=== PATIENT | female | born 1985 | race Caucasian/White ===

== ENCOUNTER 2017-11-14 12:35 | Outpatient (CLI) | payer MEDICAID | END 2017-11-14 12:36 | disposition home or self-care (01) | LOC: LAB.F 12:35 | PROVIDERS: ATTEND Internal Medicine | DX: Z53.9 Procedure and treatment not carried out, unspecified reason (principal) ==

== ENCOUNTER 2017-11-21 10:25 | Outpatient (CLI) | payer MEDICAID ==
[2017-11-21 18:17] LABS: BASOPHILS % (AUTO) 0.8 %; EOSINOPHILS # (AUTO) 0.1 10^3/uL (0.0-0.7); EOSINOPHILS % (AUTO) 2.2 %; HGB - HEMOGLOBIN 9.7 g/dL (12.0-16.0); LYMPHOCYTES # (AUTO) 1.1 10^3/uL (1.5-3.5); LYMPHOCYTES % (AUTO) 33.3 %; MEAN CORPUSCULAR HEMOGLOBIN 28.7 pg (27.0-31.0); MEAN CORPUSCULAR HGB CONC 32.7 g/dL (32.0-36.0); MEAN CORPUSCULAR VOLUME 87.6 fL (81.0-99.0); MEAN PLATELET VOLUME 8.5 fL (7.9-10.8); MEAN RETIC VALUE 110.3; MONOCYTES # (AUTO) 0.4 10^3/uL (0.0-1.0); MONOCYTES % (AUTO) 13.2 %; NEUTROPHILS # (AUTO) 1.7 10^3/uL (1.5-6.6); NEUTROPHILS % (AUTO) 50.5 %; PLT - PLATELET COUNT 147 10^3/uL (130-450); RED BLOOD COUNT 3.39 10^6/uL (4.20-5.40); RED CELL DISTRIBUTION WIDTH 20.8 % (12.0-15.0); WHITE BLOOD COUNT 3.4 x10^3/uL (4.8-10.8)
[2017-11-21 18:23] LABS: THYROID STIMULATING HORMONE 3.63 uIU/mL (0.34-5.60)
[2017-11-21 18:31] LABS: FERRITIN 5.1 ng/mL (11.0-306.8)
[2017-11-21 18:34] LABS: FOLATE 8.99 ng/mL (5.90 - >24.8)
[2017-11-21 18:52] LABS: ALBUMIN 3.1 g/dL (3.2-5.5); ALBUMIN/GLOBULIN RATIO 0.9 (1.0-2.2); BILIRUBIN,TOTAL 0.3 mg/dL (0.2-1.0); CREATININE 0.6 mg/dL (0.4-1.0); TOTAL PROTEIN 6.7 g/dL (6.7-8.2)
[2017-11-21 19:04] LABS: PLATELET ESTIMATE, MANUAL NORMAL (130-450,000) (NORMAL); PLATELET MORPHOLOGY NORMAL APPEARANCE (NORMAL); RBC MORPHOLOGY (MULTIPLE) 1+ ANISOCYTOSIS (NORMAL)
== END 2017-11-21 10:26 | disposition home or self-care (01) ==
LOC: LAB.F 10:25
PROVIDERS: ATTEND Internal Medicine
DX: D64.9 Anemia, unspecified (principal); F10.20 Alcohol dependence, uncomplicated; Z98.84 Bariatric surgery status
CPT/HCPCS: 36415; 80050; 81599; 82607; 82652; 82728; 82746; 83540; 84466; 85044

== ENCOUNTER → 2017-12-26 | Outpatient (CLI) | payer MEDICAID ==
[2017-12-26 17:50] LABS: CALCIUM 8.5 mg/dL (8.5-10.3); CREATININE 0.5 mg/dL (0.4-1.0)
[2017-12-26 17:59] LABS: HGB - HEMOGLOBIN 9.5 g/dL (12.0-16.0); MEAN CORPUSCULAR HGB CONC 31.4 g/dL (32.0-36.0); MEAN CORPUSCULAR VOLUME 79.5 fL (81.0-99.0); MEAN PLATELET VOLUME 8.4 fL (7.9-10.8); RED BLOOD COUNT 3.78 10^6/uL (4.20-5.40); RED CELL DISTRIBUTION WIDTH 20.4 % (12.0-15.0)
[2017-12-26 18:06] LABS: FERRITIN 3.6 ng/mL (11.0-306.8)
== END ==
LOC: LAB.F 08:00
PROVIDERS: ATTEND Internal Medicine
DX: D50.9 Iron deficiency anemia, unspecified (principal); Z98.84 Bariatric surgery status
CPT/HCPCS: 36415; 80048; 82607; 82728; 85027

== ENCOUNTER 2018-05-31 16:49 | Emergency (ER) | payer MEDICAID ==
[2018-05-31 17:09] LABS: BILIRUBIN,URINE NEGATIVE (NEGATIVE); GLUCOSE, URINE (UA) NEGATIVE (NEGATIVE); KETONES,URINE (UA) NEGATIVE (NEGATIVE); LEUKOCYTE ESTERASE, URINE MODERATE (NEGATIVE); NITRITE,URINE NEGATIVE (NEGATIVE); OCCULT BLOOD,URINE SMALL (NEGATIVE); PROTEIN,URINE NEGATIVE (NEGATIVE); UROBILINOGEN,URINE 0.2 (NORMAL) E.U./dL (NORMAL)
[2018-05-31 17:10] LABS: CLARITY,URINE HAZY (CLEAR)
[2018-05-31 17:11] LABS: HCG UR QUAL NEGATIVE
[2018-05-31 17:19] LABS: WBC CLUMPS,URINE PRESENT
[2018-05-31 17:21] LABS: BACTERIA,URINE Many /HPF (None Seen); SQUAMOUS EPITHELIAL CELL,UR FEW Squamous (<= Few)
[2018-05-31 18:11] VITALS: BP 139/79
[2018-05-31] MEDS ORDERED: LIDOCAINE 1% 2 ML VIAL SUBQ ONE (18:12)
[2018-05-31] MEDS ORDERED: cefTRIAXone 1 GM VIAL IM STA (18:12)
[2018-05-31] MEDS ORDERED: HYDROcod/ACETAM 5/325 MG TABLET PO STA (18:13)
[2018-05-31] MEDS ORDERED: ONDANSETRON ODT 4 MG TABLET TL STA (18:14)
--- NOTE | 2018-05-31 18:15 | ED Physician Documentation ---
History of Present Illness - Stated complaint Stated Complaint: LOW BACK PX - Chief complaint Chief Complaint: Abd Pain - History obtained from History obtained from: Patient, Family - History of Present Illness Timing: How many days ago (several) Pain level max: 8 Pain level now: 8 Improved by: nothing Worsened by: movement - Additonal information Additional information: 32-year-old female with low back pain worsening over the past few days. Dysuria and urinary frequency as well. Has had pyelonephritis in the past. Has felt feverish and chilled today. Review of Systems Constitutional: denies: Fever, Chills Throat: denies: Sore throat Respiratory: denies: Cough GI: denies: Constipation, Diarrhea, Hematemesis : denies: Now EGA Skin: denies: Rash Musculoskeletal: denies: Neck pain, Back pain Neurologic: denies: Headache PD PAST MEDICAL HISTORY - Past Medical History Past Medical History: No - Past Surgical History General: Gastric surgery - Present Medications Home Medications: Ambulatory Orders Medication Instructions Recorded Confirmed Cefdinir 300 mg PO BID #20 capsule 05/31/18 Hydrocodone/Acetaminophen 1 - 2 each PO Q6H PRN #14 tablet 05/31/18 [Hydrocodon-Acetaminophen 5-325] Ondansetron Odt [Zofran] 4 mg TL Q6H PRN #10 tablet 05/31/18 - Allergies Allergies/Adverse Reactions: Allergies Allergy/AdvReac Type Severity Reaction Status Date / Time ibuprofen AdvReac Nausea Verified 05/31/18 16:54 - Social History Does the pt smoke?: Yes Smoking Status: Current every day smoker Does the pt drink ETOH?: No Does the pt have substance abuse?: No - Immunizations Immunizations are current?: Yes PD ED PE NORMAL - Vitals Vital signs reviewed: Yes - General General: Alert and oriented X 3, No acute distress, Well developed/nourished - HEENT HEENT: Moist mucous membranes - Neck Neck: Supple, no meningeal sign - Cardiac Cardiac: RRR - Respiratory Respiratory: No respiratory distress, Clear bilaterally - Abdomen Abdomen: Soft, Non tender, Non distended - Back Back: Other (Mild left CVA tenderness) - Derm Derm: Warm and dry - Extremities Extremities: No edema - Neuro Neuro: Alert and oriented X 3 - Psych Psych: Normal mood, Normal affect Results - Vitals Vitals: Oxygen O2 Source Room air - Labs Labs: Microbiology 03/14/19 17:04 Urine Culture - Final Urine,Clean Catch 10-50,000 COLONIES/ML Polymicrobial growth including potential pathogens. This is suggestive of skin or other contamination. Laboratory Tests 05/31/18 17:04 Urine Color YELLOW Urine Clarity HAZY Urine pH 7.0 Ur Specific [place] 1.010 Urine Protein NEGATIVE Urine Glucose (UA) NEGATIVE Urine Ketones NEGATIVE Urine Occult Blood SMALL H Urine Nitrite NEGATIVE Urine Bilirubin NEGATIVE Urine Urobilinogen 0.2 (NORMAL) Ur Leukocyte Esterase MODERATE H Urine RBC 6-10 H Urine WBC >25 H Urine WBC Clumps PRESENT Ur Squamous Epith Cells FEW Squamous Urine Bacteria Many H Ur Microscopic Review INDICATED Urine Culture Comments INDICATED Urine HCG, Qual NEGATIVE PD MEDICAL DECISION MAKING - ED course Complexity details: reviewed results, re-evaluated patient, considered differential, d/w patient ED course: 32-year-old female presents to the emergency department with what appears to be early pyelonephritis. Given a dose of Rocephin here. Will place on antibiotics for home. She is well-appearing, nontoxic. Patient counseled regarding signs and symptoms for which I believe and urgent re-evaluation would be necessary. Patient with good understanding of and agreement to plan and is comfortable going home at this time This document was made in part using voice recognition software. While efforts are made to proofread this document, sound alike and grammatical errors may occur. Departure - Departure Disposition: 01 Home, Self Care Clinical Impression: Pyelonephritis Condition: Good Instructions: ED Kidney Infec Female Follow-Up: Ishmael Gómez MD [Primary Care Provider] - Within 1 week Prescriptions: Cefdinir 300 mg PO BID #20 capsule Hydrocodone/Acetaminophen [Hydrocodon-Acetaminophen 5-325] 1 - 2 each PO Q6H PRN #14 tablet PRN Reason: pain Ondansetron Odt [Zofran] 4 mg TL Q6H PRN #10 tablet PRN Reason: Nausea / Vomiting Comments: Take all antibiotics until gone. Return if you worsen. Follow-up with your doctor for further care. Do not drink alcohol or drive while on narcotic pain medicine. Note that many narcotic pain relievers also contain tylenol/acetaminophen. Please ensure that your total dose of acetaminophen from all sources does not exceed 3 grams (3000mg) per day. You may constipated on this medication, take a stool softener such as "Colace" twice a day while you are on it. Also recommend a uypl-thk-qqycwus laxative such as senna or MiraLAX any day that you do not have a bowel movement. If you received narcotic pain medication in the emergency department, do not drive or operate machinery for the next 24 hours. Discharge Date/Time: 05/31/18 18:40
== END 2018-05-31 18:40 | disposition home or self-care (01) ==
LOC: ED 16:49
DX: N12 Tubulo-interstitial nephritis, not specified as acute or chronic (principal); F17.200 Nicotine dependence, unspecified, uncomplicated
CPT/HCPCS: 81001; 81025; 87086; 96372; 99283; A9270; Q0162; 81003

== ENCOUNTER 2018-06-08 14:11 | Outpatient (CLI) | payer MEDICAID ==
[2018-06-08 17:38] LABS: HGB - HEMOGLOBIN 8.7 g/dL (12.0-16.0); MEAN CORPUSCULAR HEMOGLOBIN 20.9 pg (27.0-31.0); MEAN CORPUSCULAR VOLUME 69.6 fL (81.0-99.0); MEAN PLATELET VOLUME 8.2 fL (7.9-10.8); RED BLOOD COUNT 4.14 10^6/uL (4.20-5.40); RED CELL DISTRIBUTION WIDTH 18.4 % (12.0-15.0)
[2018-06-08 18:08] LABS: CALCIUM 8.6 mg/dL (8.5-10.3); CREATININE 0.7 mg/dL (0.4-1.0)
== END 2018-06-08 14:12 | disposition home or self-care (01) ==
LOC: LAB.F 14:11
PROVIDERS: ATTEND Internal Medicine
DX: E87.6 Hypokalemia (principal); D50.9 Iron deficiency anemia, unspecified
CPT/HCPCS: 36415; 80048; 82728; 85027

== ENCOUNTER 2018-07-16 11:22 | Emergency (ER) | payer MEDICAID ==
[2018-07-16] MEDS ORDERED: ONDANSETRON ODT 4 MG TABLET TL STA (12:47)
[2018-07-16] MEDS ORDERED: HYDROcod/ACETAM 5/325 MG TABLET PO STA (12:47)
--- NOTE | 2018-07-16 12:51 | ED Physician Documentation ---
PD HPI HEAD INJURY - Stated complaint Stated Complaint: NOSE INJ - Chief complaint Chief Complaint: Trauma Hd/Nk - History obtained from History obtained from: Patient - History of Present Illness Mechanism of head injury: Blow Where head injury occurred: Home Timing - onset: Today Location of injury: Other (face) Associated symptoms: Other (epistaxis) Similar symptoms before: Has not had sx before - Additional information Additional information: The patient is a 32-year-old female who was installing a water fall showerhead this morning when it fell onto her face. She has had bleeding from her nose since that time. She has noticed deformity of her nose, and persistent pain. She denies loss of consciousness, visual disturbance, or other injuries. She has developed slight nausea, but denies vomiting. Review of Systems Constitutional: denies: Fever Eyes: denies: Decreased vision Ears: denies: Tinnitus/ringing Nose: reports: Epistaxis, Other (pain and deformity of nose). denies: Congestion Throat: denies: Sore throat Cardiac: denies: Chest pain / pressure Respiratory: denies: Dyspnea, Cough GI: reports: Nausea. denies: Abdominal Pain, Vomiting : denies: Dysuria Skin: reports: Abrasion (s) (nose). denies: Rash Musculoskeletal: denies: Neck pain, Back pain Neurologic: denies: Focal weakness, Numbness, Headache PD PAST MEDICAL HISTORY - Past Medical History Cardiovascular: None Respiratory: None Neuro: None Endocrine/Autoimmune: None - Past Surgical History General: Gastric surgery - Present Medications Home Medications: Ambulatory Orders Medication Instructions Recorded Confirmed Cyclobenzaprine [Flexeril] 10 mg PO DAILY 06/28/18 06/28/18 hydrOXYzine HCl [Hydroxyzine HCl] 10 mg PO DAILY 06/28/18 06/28/18 traZODone [Desyrel] 50 mg PO Q6H PRN 06/28/18 06/28/18 Hydrocodone/Acetaminophen 1 - 2 each PO Q6H PRN #14 tablet 07/16/18 [Hydrocodon-Acetaminophen 5-325] - Allergies Allergies/Adverse Reactions: Allergies Allergy/AdvReac Type Severity Reaction Status Date / Time ibuprofen AdvReac Nausea Verified 05/31/18 16:54 - Social History Does the pt smoke?: Yes Smoking Status: Current every day smoker Does the pt drink ETOH?: No Does the pt have substance abuse?: No - Immunizations Immunizations are current?: Yes PD ED PE NORMAL - Vitals Vital signs reviewed: Yes (normal) - General General: Alert and oriented X 3, Well developed/nourished, Other (Holding Kleenex to her nose.) - HEENT HEENT: PERRL, EOMI, Pharynx benign, Other (There is deviation of the nasal septum to the right, with associated tenderness to palpation along the nasal bridge. There is no septal hematoma. There is no significant ongoing epistaxis, but there is slight blood-tinged tearing from the nose.) - Neck Neck: No bony TTP, No adenopathy, Other (Full cervical range of motion without tenderness.) - Cardiac Cardiac: RRR - Respiratory Respiratory: No respiratory distress - Derm Derm: No rash - Extremities Extremities: No tenderness to palpate - Neuro Neuro: Alert and oriented X 3, No motor deficit, Normal speech Results - Vitals Vitals: Vital Signs - 24 hr 07/16/18 11:32 Temperature 36.6 C Heart Rate 100 Respiratory 18 Rate Blood Pressure 133/73 H O2 Saturation 100 Oxygen O2 Source Room air - Rads (name of study) maxillofacial CT Radiology: Prelim report reviewed, EMP read contemporaneously, See rad report (Markedly comminuted nasal fracture with rightward displacement.) PD MEDICAL DECISION MAKING - ED course Complexity details: reviewed results, re-evaluated patient, considered differential, d/w patient, d/w wine consultant ED course: The patient's presentation is significant for a comminuted nasal fracture which is visualized on maxillofacial CT scan. It reveals deviation to the right. There is no septal hematoma on physical examination, and the epistaxis has spontaneously resolved. Treatment in the emergency department included administration of sublingual Zofran 4 mg, and Vicodin 1 tablet orally. She is being discharged with a prescription for Vicodin, 10 tablets. I discussed her condition with Dr. Reveles who is on-call for plastic surgery in [place]. He will see her in outpatient follow-up. A disc of the patient's imaging study was made for her to take to the outpatient appointment. I discussed with her outpatient follow-up, as well as potentially worrisome signs or symptoms that should prompt reevaluation in the emergency department. Departure - Departure Disposition: 01 Home, Self Care Clinical Impression: Nasal fracture Qualifiers: Encounter type: initial encounter Fracture type: closed Qualified Code(s): S02.2XXA - Fracture of nasal bones, initial encounter for closed fracture Condition: Stable Instructions: ED Fx Nasal Conf W X Ray Follow-Up: Ishmael Gómez MD [Primary Care Provider] - Lb Reveles MD [Physician No Access] - Prescriptions: Hydrocodone/Acetaminophen [Hydrocodon-Acetaminophen 5-325] 1 - 2 each PO Q6H PRN #14 tablet PRN Reason: pain Comments: Apply ice pack to your nose intermittently for the next 2 or 3 days. You can use ibuprofen, up to 800 mg 3 times daily for the anti-inflammatory effect. You can use Vicodin as prescribed if needed for pain. Follow-up with plastic surgery this week. Dr. Reveles's office will call you to arrange follow-up appointment. Take the disc copy of your CT scan with you to the appointment. Return to the emergency department if recurrent persistent bleeding, increasing headache, or otherwise worsening symptoms.
--- NOTE | 2018-07-16 13:19 | CT Report ---
Reason: facial injury, with nasal deformity. Procedure Date: 07/16/2018 Accession Number: [id number] / [id number] Procedure: CT - MAXILLOFACIAL WO CPT Code: FULL RESULT: EXAM: CT MAXILLOFACIAL WITHOUT CONTRAST EXAM DATE: 07/16/2018 01:02 PM. CLINICAL HISTORY: Facial injury, with nasal deformity. COMPARISONS: None. TECHNIQUE: Thin-section axial images were acquired of the face without contrast. Post-processing: Coronal and sagittal reformats. Other: None. In accordance with CT protocol optimization, one or more of the following dose reduction techniques were utilized for this exam: automated exposure control, adjustment of mA and/or KV based on patient size, or use of iterative reconstructive technique. FINDINGS: Soft Tissue: The infratemporal fossa and parapharyngeal spaces are unremarkable. Soft tissue swelling over the nose. Orbits: Symmetric and unremarkable. Bones: Markedly comminuted fracture of the superior nasal spine extending to the base of the spine with involvement of the upper portion of the nasal septum, displaced slightly to the right. Underlying nasal septal deviation measuring about 5 mm to the left. Comminution extends into the nasal daily, left worse than right, with rightward displacement. Inferior nasal spine remains intact. Otherwise unremarkable. Temporomandibular Joints: The temporomandibular joints are symmetric and normally located. Sinuses: Small air-fluid levels in both maxillary sinuses. Otherwise clear. Other: None. IMPRESSION: Markedly comminuted nasal fracture with rightward displacement. RADIA
[2018-07-16 15:05] VITALS: BP 117/72
== END 2018-07-16 15:06 | disposition home or self-care (01) ==
LOC: ED 11:22
DX: S02.2XXA Fracture of nasal bones, initial encounter for closed fracture (principal); W20.8XXA Other cause of strike by thrown, projected or falling object, initial encounter; Y93.89 Activity, other specified; Y92.002 Bathroom of unspecified non-institutional (private) residence as the place of occurrence of the external cause; F17.200 Nicotine dependence, unspecified, uncomplicated
CPT/HCPCS: 70486; 99283; A9270; Q0162

== ENCOUNTER 2018-11-07 14:46 | Outpatient (CLI) | payer MEDICAID ==
[2018-11-07 17:38] LABS: HGB - HEMOGLOBIN 12.4 g/dL (12.0-16.0); MEAN CORPUSCULAR HEMOGLOBIN 27.4 pg (27.0-31.0); MEAN CORPUSCULAR HGB CONC 30.8 g/dL (32.0-36.0); MEAN PLATELET VOLUME 10.4 fL (7.9-10.8); RED BLOOD COUNT 4.53 10^6/uL (4.20-5.40); RED CELL DISTRIBUTION WIDTH 14.3 % (12.0-15.0); WHITE BLOOD COUNT 4.7 x10^3/uL (4.8-10.8)
[2018-11-08 15:21] LABS: HIV AG/AB 4TH GEN NON-REACTIVE (NON-REACTIVE)
== END 2018-11-07 14:47 | disposition home or self-care (01) ==
LOC: LAB.S 14:46
PROVIDERS: ATTEND Internal Medicine
DX: D50.9 Iron deficiency anemia, unspecified (principal); Z11.3 Encounter for screening for infections with a predominantly sexual mode of transmission
CPT/HCPCS: 36415; 82728; 85027; 87389

== ENCOUNTER 2018-12-26 13:23 | Outpatient (CLI) | payer MEDICAID ==
[2018-12-26 18:05] LABS: ABSOLUTE RETICS # AUTO 0.024 10^6/uL (0.020-0.110); BASOPHILS % (AUTO) 0.5 %; HGB - HEMOGLOBIN 11.6 g/dL (12.0-16.0); LYMPHOCYTES # (AUTO) 1.2 10^3/uL (1.5-3.5); LYMPHOCYTES % (AUTO) 30.8 %; MEAN CORPUSCULAR HEMOGLOBIN 25.3 pg (27.0-31.0); MEAN CORPUSCULAR HGB CONC 30.3 g/dL (32.0-36.0); MEAN CORPUSCULAR VOLUME 83.6 fL (81.0-99.0); MEAN PLATELET VOLUME 11.1 fL (7.9-10.8); MONOCYTES # (AUTO) 0.5 10^3/uL (0.0-1.0); NEUTROPHILS # (AUTO) 2.2 10^3/uL (1.5-6.6); NEUTROPHILS % (AUTO) 55.4 %; PLT - PLATELET COUNT 169 10^3/uL (130-450); RED BLOOD COUNT 4.58 10^6/uL (4.20-5.40); WHITE BLOOD COUNT 3.9 x10^3/uL (4.8-10.8)
[2018-12-26 18:44] LABS: % IRON SATURATION 10 % (20-50); IRON 51 ug/dL (28-170); TOTAL IRON BINDING CAPACITY 526 ug/dL (250-450); TRANSFERRIN 376 mg/dL (192-382)
== END 2018-12-26 13:24 | disposition home or self-care (01) ==
LOC: LAB.S 13:23
PROVIDERS: ATTEND Internal Medicine
DX: D50.9 Iron deficiency anemia, unspecified (principal)
CPT/HCPCS: 36415; 82728; 83540; 84466; 85025; 85045

== ENCOUNTER 2019-03-22 07:00 | Outpatient (CLI) | payer MEDICAID | END 2019-03-22 23:59 | disposition home or self-care (01) | LOC: LAB.R 07:00 | PROVIDERS: ATTEND Obstetrics & Gynecology | DX: Z32.01 Encounter for pregnancy test, result positive (principal) | CPT/HCPCS: 87077; 87086; 87181 ==

== ENCOUNTER 2019-04-17 14:49 | Outpatient (CLI) | payer MEDICAID ==
--- NOTE | 2019-04-17 15:56 | Ultrasound Report ---
Reason: TEST POSITIVE Procedure Date: 04/17/2019 Accession Number: [id number] / [id number] Procedure: US - OB First Trimester CPT Code: Final Report FULL RESULT: EXAM: FIRST TRIMESTER OBSTETRIC ULTRASOUND (Less than 11 weeks) EXAM DATE: 04/17/2019 03:47 PM. CLINICAL HISTORY: test positive. LMP: 02/17/2019. COMPARISONS: None. TECHNIQUE: Transabdominal and transvaginal ultrasound examination with static image documentation. CLINICAL DATES: EGA 8 weeks 3 days with TAHIR 11/24/2019 based on LMP. ASSESSMENT: Gestational Sac: Single intrauterine. Mean gestational sac diameter: 30 mm = 8 weeks 1 day. Embryo: CRL (crown-rump length) 12 mm = 7 weeks 2 days. Cardiac activity: 151 beats per minute. Yolk sac: 5 mm. Amniotic fluid: Not accurately assessed at this gestational age. Early placenta: Not visible at this gestational age. Other: No perigestational fluid collection demonstrated. MATERNAL STRUCTURES: Uterus: Anteverted. Unremarkable. Cervix: Closed. Right Ovary/Adnexa: The ovary measures 3.0 x 2.3 x 3.2 cm, volume 11.7 cc. Corpus luteum noted. Left Ovary/Adnexa: The ovary measures 2.6 x 1.5 x 2.4 cm, volume 4.9 cc. Unremarkable. Free Fluid: Trace fluid is seen in the cul-de-sac. Other: None. IMPRESSION: 1. Single viable intrauterine at EGA 7 weeks 2 days with TAHIR 12/02/2019 based on crown-rump length, which is discordant with clinical dates. 2. Assigned dating is TAHIR 12/02/2019 based on current ultrasound. RADIA
== END 2019-04-17 14:50 | disposition home or self-care (01) ==
LOC: DI 14:49
PROVIDERS: ATTEND Obstetrics & Gynecology
DX: Z32.01 Encounter for pregnancy test, result positive (principal)
CPT/HCPCS: 76801; 76817

== ENCOUNTER 2019-04-19 08:00 | Outpatient (CLI) | payer MEDICAID ==
[2019-04-19 15:13] LABS: MUDS CUTOFF CONCENTRATIONS CUTOFF CONC BELOW:
[2019-04-19 15:35] LABS: BILIRUBIN,URINE NEGATIVE (NEGATIVE); GLUCOSE, URINE (UA) NEGATIVE (NEGATIVE); KETONES,URINE (UA) NEGATIVE (NEGATIVE); LEUKOCYTE ESTERASE, URINE NEGATIVE (NEGATIVE); NITRITE,URINE NEGATIVE (NEGATIVE); OCCULT BLOOD,URINE NEGATIVE (NEGATIVE); PROTEIN,URINE NEGATIVE (NEGATIVE); UROBILINOGEN,URINE 0.2 (NORMAL) E.U./dL (NORMAL)
[2019-04-19 15:55] LABS: AMORPHOUS SEDIMENT,UR Moderate /LPF; BACTERIA,URINE Moderate /HPF (None Seen); CLARITY,URINE CLOUDY (CLEAR); RBC,URINE 0-5 /HPF (0-5); SQUAMOUS EPITHELIAL CELL,UR MANY Squamous (<= Few)
[2019-04-19 16:25] LABS: AMPHETAMINE SCREEN,URINE NEGATIVE (NEGATIVE); BENZODIAZEPINES SCREEN, URINE NEGATIVE (NEGATIVE); COCAINE SCREEN URINE NEGATIVE (NEGATIVE); METHADONE SCREEN, URINE NEGATIVE (NEGATIVE); METHAMPHETAMINES SCREEN, URINE NEGATIVE (NEGATIVE); OPIATE SCREEN, URINE NEGATIVE (NEGATIVE); OXYCODONE SCREEN, URINE NEGATIVE (NEGATIVE); PROPOXYPHENE SCREEN, URINE NEGATIVE (NEGATIVE); TRICYCLIC ANTIDEPRESSANT,URINE NEGATIVE (NEGATIVE)
== END 2019-04-19 23:59 | disposition home or self-care (01) ==
LOC: LAB.R 08:00
PROVIDERS: ATTEND Nurse Practitioner Obstetrics & Gynecology
DX: Z36.89 Encounter for other specified antenatal screening (principal)
CPT/HCPCS: 80306; 80349; 81001; 81599; 87086

== ENCOUNTER 2019-04-24 08:00 | Outpatient (CLI) | payer MEDICAID ==
[2019-04-24 18:13] LABS: BASOPHILS % (AUTO) 0.2 %; EOSINOPHILS % (AUTO) 0.4 %; HGB - HEMOGLOBIN 10.1 g/dL (12.0-16.0); LYMPHOCYTES # (AUTO) 1.2 10^3/uL (1.5-3.5); LYMPHOCYTES % (AUTO) 24.9 %; MEAN CORPUSCULAR HEMOGLOBIN 23.2 pg (27.0-31.0); MEAN CORPUSCULAR HGB CONC 29.5 g/dL (32.0-36.0); MEAN CORPUSCULAR VOLUME 78.4 fL (81.0-99.0); MEAN PLATELET VOLUME 11.7 fL (7.9-10.8); MONOCYTES # (AUTO) 0.4 10^3/uL (0.0-1.0); NEUTROPHILS # (AUTO) 3.1 10^3/uL (1.5-6.6); NEUTROPHILS % (AUTO) 65.1 %; PLT - PLATELET COUNT 169 10^3/uL (130-450); RED BLOOD COUNT 4.36 10^6/uL (4.20-5.40); RED CELL DISTRIBUTION WIDTH 15.9 % (12.0-15.0); WHITE BLOOD COUNT 4.8 x10^3/uL (4.8-10.8)
[2019-04-24 18:37] LABS: ALBUMIN 3.3 g/dL (3.2-5.5); BILIRUBIN,TOTAL 0.4 mg/dL (0.2-1.0); CALCIUM 8.9 mg/dL (8.5-10.3); CREATININE 0.6 mg/dL (0.4-1.0); TOTAL PROTEIN 6.7 g/dL (6.7-8.2)
[2019-04-24 18:55] LABS: FOLATE 14.7 ng/mL (5.90 - >24.8)
[2019-04-25 12:07] LABS: HEPATITIS B SURFACE ANTIGEN NON-REACTIVE (NON-REACTIVE); HEPATITIS C ANTIBODY NON-REACTIVE (NON-REACTIVE)
[2019-04-25 13:24] LABS: HIV AG/AB 4TH GEN NON-REACTIVE (NON-REACTIVE)
== END 2019-04-24 23:59 | disposition home or self-care (01) ==
LOC: LAB.S 08:00
PROVIDERS: ATTEND Nurse Practitioner Obstetrics & Gynecology
DX: Z36.89 Encounter for other specified antenatal screening (principal); Z98.84 Bariatric surgery status
CPT/HCPCS: 36415; 80053; 81599; 82306; 82330; 82746; 83540; 84466; 85025; 86592; 86762; 86803; 86850; 86900; 86901; 87340; 87389

== ENCOUNTER 2019-06-01 11:09 | Emergency (ER) | payer MEDICAID ==
[2019-06-01 11:16] VITALS: BP 117/68
--- NOTE | 2019-06-01 11:38 | ED Physician Documentation ---
PD HPI FEMALE - Stated complaint Stated Complaint: SPOTTING - Chief complaint Chief Complaint: General - History obtained from History obtained from: Patient - History of Present Illness Timing - onset: Today (The patient is approximately 15 weeks and started having vaginal spotting and some bleeding and cramping. She talked to the on-call GAME FARM SUPERVISOR who would meet her in the department. She was seen by gynecology here in the department. The patient does not have any other problems or needs beyond that from the GAME FARM SUPERVISOR.) PD PAST MEDICAL HISTORY - Past Medical History Cardiovascular: None Respiratory: None Neuro: None Endocrine/Autoimmune: None GI: None KETTLE COOK: None : None HEENT: None Psych: None Musculoskeletal: None Derm: None - Past Surgical History Past Surgical History: Yes General: Gastric surgery - Present Medications Home Medications: Ambulatory Orders Medication Instructions Recorded Confirmed Cyclobenzaprine [Flexeril] 10 mg PO DAILY 06/28/18 06/28/18 hydrOXYzine HCL [Hydroxyzine HCl] 10 mg PO DAILY 06/28/18 06/28/18 traZODone [Desyrel] 50 mg PO Q6H PRN 06/28/18 06/28/18 Hydrocodone/Acetaminophen 1 - 2 each PO Q6H PRN #14 tablet 07/16/18 [Hydrocodon-Acetaminophen 5-325] - Allergies Allergies/Adverse Reactions: Allergies Allergy/AdvReac Type Severity Reaction Status Date / Time ibuprofen AdvReac Nausea Verified 06/01/19 11:16 - Social History Does the pt smoke?: Yes Smoking Status: Current every day smoker Does the pt drink ETOH?: No Does the pt have substance abuse?: No - Immunizations Immunizations are current?: Yes - POLST Patient has POLST: No PD ED PE NORMAL - Vitals Vital signs reviewed: Yes - General General: Alert and oriented X 3, No acute distress, Well developed/nourished - Derm Derm: Normal color, Warm and dry - Neuro Neuro: Alert and oriented X 3, No motor deficit, Normal speech Results - Vitals Vitals: Vital Signs - 24 hr 06/01/19 11:12 Temperature 36.9 C Heart Rate 90 Respiratory 16 Rate Blood Pressure 117/68 O2 Saturation 97 Oxygen O2 Source Room air - Labs Labs: Laboratory Tests 06/01/19 11:55 Urine Color YELLOW Urine Clarity CLEAR Urine pH 6.0 Ur Specific [place] 1.020 Urine Protein NEGATIVE Urine Glucose (UA) NEGATIVE Urine Ketones 15 H Urine Occult Blood NEGATIVE Urine Nitrite NEGATIVE Urine Bilirubin NEGATIVE Urine Urobilinogen 0.2 (NORMAL) Ur Leukocyte Esterase NEGATIVE Ur Microscopic Review NOT INDICATED Urine Culture Comments NOT INDICATED PD MEDICAL DECISION MAKING - ED course Complexity details: considered differential (Patient was mainly seen by gynecology here for cramping and spotting of blood in early . Please refer to the GAME FARM SUPERVISOR's note. The patient did not have any other needs or concerns at this time.), d/w patient Departure - Departure Disposition: 01 Home, Self Care Clinical Impression: Vaginal spotting Qualifiers: Weeks of gestation: 15 weeks Qualified Code(s): Z3A.15 - 15 weeks gestation of Condition: Stable Record reviewed to determine appropriate education?: Yes Follow-Up: AILEEN CARRILLO MD [Provider Admit Priv/Credential] - Comments: Stay well-hydrated. Activity as able. Tylenol if needed for cramps or pains. Follow-up with GAME FARM SUPERVISOR this coming week. Discharge Date/Time: 06/01/19 12:46
[2019-06-01 12:03] LABS: BILIRUBIN,URINE NEGATIVE (NEGATIVE); GLUCOSE, URINE (UA) NEGATIVE (NEGATIVE); KETONES,URINE (UA) 15 mg/dL (NEGATIVE); LEUKOCYTE ESTERASE, URINE NEGATIVE (NEGATIVE); NITRITE,URINE NEGATIVE (NEGATIVE); OCCULT BLOOD,URINE NEGATIVE (NEGATIVE); PROTEIN,URINE NEGATIVE (NEGATIVE); UROBILINOGEN,URINE 0.2 (NORMAL) E.U./dL (NORMAL)
[2019-06-01 12:05] LABS: CLARITY,URINE CLEAR (CLEAR)
--- NOTE | 2019-06-01 12:32 | HISTORY & PHYSICAL EXAMINATION ---
Admit History - Visit Reason Visit Reason: Other (33yo at 13 4/7 weeks by 7 week scan not c/w LMP presents with c/o watery DC since this morning. Reports one episode when she got up to go to BR and then when she got up from bed again. No bleeding, no pain, no dysuria. Denies n/v/f/c or diarrhea. so far uncomplicated. Previous SVDs at term.) - : 4 Parity: 3 Premature: 0 Ectopic: 0 : 0 Care: positive: [facility] Risk/History: positive: Other (AMA, h/o gastric bypass) Smoking Status: Former smoker - Mother's Labs Mother's Blood Type: positive: O Mother's RH: positive: Positive Rubella Status: positive: Immune (GC/chlam neg Urine culture neg 2/ HIV/RPR/HepB NR PAP nml Iron deficiency anemia Utox +marijuana Varicella non- immune) Meds/Allgy - Home Medications Home Medications: Ambulatory Orders Medication Instructions Recorded Confirmed Cyclobenzaprine [Flexeril] 10 mg PO DAILY 06/28/18 06/28/18 hydrOXYzine HCL [Hydroxyzine HCl] 10 mg PO DAILY 06/28/18 06/28/18 traZODone [Desyrel] 50 mg PO Q6H PRN 06/28/18 06/28/18 Hydrocodone/Acetaminophen 1 - 2 each PO Q6H PRN #14 tablet 07/16/18 [Hydrocodon-Acetaminophen 5-325] - Allergies Allergies/Adverse Reactions: Allergies Allergy/AdvReac Type Severity Reaction Status Date / Time ibuprofen AdvReac Nausea Verified 06/01/19 11:16 Review of Systems - All Other Systems All Other Systems: reports: Other (As noted, otherwise negative) Physical - Abdominal Exam Vital Signs: Temp Pulse Resp BP Pulse Ox 98.4 F 90 16 117/68 97 06/01/19 11:12 06/01/19 11:12 06/01/19 11:12 06/01/19 11:12 06/01/19 11:12 - Vaginal Exam Membranes: positive: Membranes intact (Speculum exam: No fluid, scant, normal vaginal DC. Bimanual: Cervix long/closed/firm, uterus 14 week size, non-tender US: Normal appearing gestational sac, single viable fetus, HR 160's Abdomen soft, non-tender, no masses) Plan for Labor - Plan For Labor Plan for Labor: 33yo at 13 4/7 weeks with vaginal DC, no evidence of threatened SAB. UA significant only for ketones c/w mild dehydration. Encouraged to increase fluid intake. Reassured re status. F/U as scheduled with primary OB provider.
== END 2019-06-01 12:46 | disposition home or self-care (01) ==
LOC: ED 11:09
DX: O26.852 Spotting complicating pregnancy, second trimester (principal); F17.210 Nicotine dependence, cigarettes, uncomplicated; Z3A.15 15 weeks gestation of pregnancy
CPT/HCPCS: 81001; 81003; 87086; 99283

== ENCOUNTER 2019-06-21 11:32 | Outpatient (CLI) | payer MEDICAID ==
--- NOTE | 2019-06-21 13:35 | Ultrasound Report ---
Reason: VAGINAL BLEEDING, FIRST TRIMESTER Procedure Date: 06/21/2019 Accession Number: [id number] / [id number] Procedure: US - OB F/U or Repeat CPT Code: Addended Final Report FULL RESULT: EXAM: FOLLOW-UP OBSTETRICAL ULTRASOUND EXAM DATE: 06/21/2019 12:47 PM. CLINICAL HISTORY: VAGINAL BLEEDING, FIRST TRIMESTER. COMPARISON: OB FIRST TRIMESTER 04/17/2019 3:13 PM. TECHNIQUE: Real-time sonographic evaluation of the fetus performed by the eligibility specialist. Additional transvaginal imaging to more accurately evaluate cervical length/placental position/etc. Multiple appliance service representative static images were saved for review. DATING: Established EGA 17 weeks 5 days with TAHIR 11/24/2019 based on LMP. EGA 16 weeks 4 days with TAHIR 12/02/2019 based on first ultrasound. EGA 17 weeks 5 days with TAHIR 11/24/2019 based on the current ultrasound. GENERAL EVALUATION Camacho . Cardiac activity: 150 bpm. movement: Visualized. Presentation: Variable. Placenta: Posterior position. Amniotic fluid: Normal.MVP 5.9 cm. BIOMETRY Bi-Parietal Diameter (BPD): 3.9 cm, 17 weeks 6 days Head Circumference (HC): 14.3 cm, 17 weeks 4 days Abdominal Circumference (AC): 12.4 cm, 18 weeks 0 days Femur Length (FL): 2.4 cm, 17 weeks 1 day Estimated Weight: 202 g, 38 percentile for weeks/days. ANATOMY Unremarkable. MATERNAL STRUCTURES There is a hypoechoic collection measuring 6.8 x 6.6 x 1.2 cm extending from the lower placental edge across the internal cervical osseous. IMPRESSION: 1. Camacho live intrauterine with gestational age 17 weeks 5 days based on LMP. 2. Placental abruption with subacute hematoma extending from the placental edge posteriorly across the internal cervical osseous measuring approximately 6.8 x 6.6 x 1.2 cm. No hyperechoic components to suggest acute hemorrhage. RADIA The critical result notification system was initiated by Dr. Donna Padron at 01:09 PM on 06/21/2019. The above critical result findings were discussed with Dr. Norman by Dr. Donna Padron at 01:33 PM on 06/21/2019. The eligibility specialist was instructed on 06/21/2019 at 1:33 PM to release the patient to home with limited activity and pelvic rest over the weekend and to contact her CIVIL SERVICE WORKER on Monday morning for follow-up. ADDENDUM: 06/22/19 17:18 Maternal cervix: Closed measuring 4.9 cm in length.
== END 2019-06-21 11:33 | disposition home or self-care (01) ==
LOC: DI 11:32
PROVIDERS: ATTEND Obstetrics & Gynecology
DX: O45.92 Premature separation of placenta, unspecified, second trimester (principal); Z3A.17 17 weeks gestation of pregnancy
CPT/HCPCS: 76816; 76817

== ENCOUNTER 2019-07-19 14:24 | Outpatient (CLI) | payer MEDICAID | END 2019-07-19 14:25 | disposition home or self-care (01) | LOC: NS 14:24 | PROVIDERS: ATTEND Obstetrics & Gynecology | DX: O99.842 Bariatric surgery status complicating pregnancy, second trimester (principal) | CPT/HCPCS: 97802 ==

== ENCOUNTER 2019-07-22 15:17 | Emergency (ER) | payer MEDICAID ==
[2019-07-22 15:55] LABS: BASOPHILS % (AUTO) 0.3 %; EOSINOPHILS % (AUTO) 0.5 %; HGB - HEMOGLOBIN 9.6 g/dL (12.0-16.0); LYMPHOCYTES % (AUTO) 15.4 %; MEAN CORPUSCULAR HEMOGLOBIN 21.8 pg (27.0-31.0); MEAN CORPUSCULAR HGB CONC 28.7 g/dL (32.0-36.0); MEAN CORPUSCULAR VOLUME 75.9 fL (81.0-99.0); MEAN PLATELET VOLUME 11.2 fL (7.9-10.8); MONOCYTES # (AUTO) 0.4 10^3/uL (0.0-1.0); MONOCYTES % (AUTO) 5.9 %; NEUTROPHILS # (AUTO) 5.1 10^3/uL (1.5-6.6); NEUTROPHILS % (AUTO) 77.6 %; PLT - PLATELET COUNT 183 10^3/uL (130-450); RED CELL DISTRIBUTION WIDTH 16.5 % (12.0-15.0); WHITE BLOOD COUNT 6.6 x10^3/uL (4.8-10.8)
[2019-07-22 16:06] LABS: ALBUMIN 2.9 g/dL (3.2-5.5); ALBUMIN/GLOBULIN RATIO 0.6 (1.0-2.2); BILIRUBIN,TOTAL 0.5 mg/dL (0.2-1.0); CALCIUM 8.6 mg/dL (8.5-10.3); CREATININE 0.6 mg/dL (0.4-1.0); TOTAL PROTEIN 7.4 g/dL (6.7-8.2)
[2019-07-22] MEDS ORDERED: SODIUM CHLORIDE 0.9% 1,000 ML IV ONE ×2 (16:12)
--- NOTE | 2019-07-22 16:13 | ED Physician Documentation ---
History of Present Illness - Stated complaint Stated Complaint: ABD PAIN - Chief complaint Chief Complaint: Abd Pain - History obtained from History obtained from: Patient - History of Present Illness Timing: How many days ago (4-5) Pain level max: 5 Pain level now: 4 - Additonal information Additional information: 33-year-old female presents to the emergency department stating that she is having dysuria, low back pain and abdominal cramping. This is been ongoing for the past 4 to 5 days. She is 3, para 2. She is approximately 21 weeks . She apparently has had a placental abruption during this but is not having any vaginal bleeding or fluid leakage. She is followed by Dr. Alicia and OB. She was started on nitrofurantoin for presumed UTI 4 days ago, but states she is not improving. She states she feels tired. No fevers. Nausea but no vomiting. Review of Systems Constitutional: denies: Fever, Chills Throat: denies: Sore throat Cardiac: denies: Chest pain / pressure Respiratory: denies: Cough GI: reports: Nausea. denies: Vomiting, Diarrhea Skin: denies: Rash Musculoskeletal: denies: Neck pain, Back pain Neurologic: denies: Headache PD PAST MEDICAL HISTORY - Past Medical History Cardiovascular: None Respiratory: None Neuro: None Endocrine/Autoimmune: None GI: None OPS ANALYST: None : None HEENT: None Psych: None Musculoskeletal: None Derm: None - Past Surgical History Past Surgical History: Yes General: Gastric surgery - Present Medications Home Medications: Ambulatory Orders Medication Instructions Recorded Confirmed Cyclobenzaprine [Flexeril] 10 mg PO DAILY 06/28/18 06/28/18 hydrOXYzine HCL [Hydroxyzine HCl] 10 mg PO DAILY 06/28/18 06/28/18 traZODone [Desyrel] 50 mg PO Q6H PRN 06/28/18 06/28/18 Hydrocodone/Acetaminophen 1 - 2 each PO Q6H PRN #14 tablet 07/16/18 [Hydrocodon-Acetaminophen 5-325] - Allergies Allergies/Adverse Reactions: Allergies Allergy/AdvReac Type Severity Reaction Status Date / Time ibuprofen AdvReac Nausea Verified 07/22/19 15:19 - Social History Does the pt smoke?: Yes Smoking Status: Current every day smoker Does the pt drink ETOH?: No Does the pt have substance abuse?: No - Immunizations Immunizations are current?: Yes - POLST Patient has POLST: No PD ED PE NORMAL - Vitals Vital signs reviewed: Yes - General General: Alert and oriented X 3, No acute distress - HEENT HEENT: Moist mucous membranes - Neck Neck: Supple, no meningeal sign - Cardiac Cardiac: RRR - Respiratory Respiratory: No respiratory distress, Clear bilaterally - Abdomen Abdomen: Soft, Non tender, Non distended - Back Back: No spinal TTP - Derm Derm: Warm and dry, No rash - Extremities Extremities: No edema - Neuro Neuro: Alert and oriented X 3 - Psych Psych: Normal mood, Normal affect Results - Vitals Vitals: Vital Signs - 24 hr 07/22/19 07/22/19 07/22/19 15:20 16:24 17:30 Temperature 36.5 C 36.7 C Heart Rate 63 60 65 Respiratory 16 16 16 Rate Blood Pressure 117/57 L 117/62 119/60 O2 Saturation 100 100 100 07/22/19 07/22/19 18:00 18:36 Temperature 36.6 C Heart Rate 62 62 Respiratory 16 16 Rate Blood Pressure 112/64 102/67 O2 Saturation 100 100 Oxygen O2 Source Room air - Labs Labs: Laboratory Tests 07/22/19 07/22/19 07/22/19 15:30 15:39 15:39 WBC 6.6 RBC 4.40 Hgb 9.6 L Hct 33.4 L MCV 75.9 L MCH 21.8 L MCHC 28.7 L RDW 16.5 H Plt Count 183 MPV 11.2 H Neut # (Auto) 5.1 Lymph # (Auto) 1.0 L [place] # (Auto) 0.4 Eos # (Auto) 0.0 Baso # (Auto) 0.0 Absolute Nucleated RBC 0.00 Nucleated RBC % 0.0 Manual Slide Review Indicated Platelet Estimate NORMAL (130-450,000) Platelet Morphology NORMAL APPEARANCE RBC Morph Micro Appear 2+ MICROCYTOSIS Sodium 135 Potassium 3.8 Chloride 101 Carbon Dioxide 27 Anion Gap 7.0 BUN 8 Creatinine 0.6 Estimated GFR (MDRD) 114 Glucose 88 Calcium 8.6 Total Bilirubin 0.5 AST 19 ALT 10 Alkaline Phosphatase 60 Total Protein 7.4 Albumin 2.9 L Globulin 4.5 H Albumin/Globulin Ratio 0.6 L Lipase 31 Urine Color YELLOW Urine Clarity CLEAR Urine pH 7.0 Ur Specific [place] <=1.005 Urine Protein NEGATIVE Urine Glucose (UA) NEGATIVE Urine Ketones NEGATIVE Urine Occult Blood NEGATIVE Urine Nitrite NEGATIVE Urine Bilirubin NEGATIVE Urine Urobilinogen 1 (NORMAL) Ur Leukocyte Esterase NEGATIVE Ur Microscopic Review NOT INDICATED Urine Culture Comments NOT INDICATED C. glabrata (PCR) C. krusei (PCR) Rand species DNA T. vaginalis (PCR) Bact Vaginosis (PCR) 07/22/19 18:17 WBC RBC Hgb Hct MCV MCH MCHC RDW Plt Count MPV Neut # (Auto) Lymph # (Auto) [place] # (Auto) Eos # (Auto) Baso # (Auto) Absolute Nucleated RBC Nucleated RBC % Manual Slide Review Platelet Estimate Platelet Morphology RBC Morph Micro Appear Sodium Potassium Chloride Carbon Dioxide Anion Gap BUN Creatinine Estimated GFR (MDRD) Glucose Calcium Total Bilirubin AST ALT Alkaline Phosphatase Total Protein Albumin Globulin Albumin/Globulin Ratio Lipase Urine Color Urine Clarity Urine pH Ur Specific [place] Urine Protein Urine Glucose (UA) Urine Ketones Urine Occult Blood Urine Nitrite Urine Bilirubin Urine Urobilinogen Ur Leukocyte Esterase Ur Microscopic Review Urine Culture Comments C. glabrata (PCR) POSITIVE A C. krusei (PCR) NEGATIVE Rand species DNA NEGATIVE T. vaginalis (PCR) NEGATIVE Bact Vaginosis (PCR) NEGATIVE - Rads (name of study) OB US Radiology: Prelim report reviewed, EMP read contemporaneously, See rad report (1. Single live intrauterine fetus with ultrasound age based on today's measurement concordant with previously established clinical age. 2. The hypoechoic area between the gestational sac and the myometrium appears without significant change since 04/22/2019 and would be consistent with described perigestational bleed or placental abruption. 3. Normal interval growth compared to date of prior biometry. ) PD MEDICAL DECISION MAKING - ED course Complexity details: reviewed results, re-evaluated patient, considered differential, d/w patient, d/w applications development consultant ED course: 33-year-old female approximately 21 weeks presents to the emergency department with dysuria, abdominal and back pain. No UTI. + for C. Glabrata, d/w OB Dr. Guzman who will follow the patient up in clinic and determine need for treatment for C. Glabrata. Patient is well-appearing, nontoxic. Afebrile. No vaginal bleeding or discharge. Patient counseled regarding signs and symptoms for which I believe and urgent re-evaluation would be necessary. Patient with good understanding of and agreement to plan and is comfortable going home at this time This document was made in part using voice recognition software. While efforts are made to proofread this document, sound alike and grammatical errors may occur. Departure - Departure Disposition: 01 Home, Self Care Clinical Impression: Qualifiers: Weeks of gestation: 21 weeks Qualified Code(s): Z3A.21 - 21 weeks gestation of Abdominal pain Qualifiers: Abdominal location: generalized Qualified Code(s): R10.84 - Generalized abdominal pain Condition: Good Instructions: ED Abdominal Pain Unkn Cause, ED Preg Established Normal Sxs Follow-Up: Meseret Alicia MD [Primary Care Provider] - Within 1 week Comments: Return if you worsen. We will call you if the swab is positive today. Follow- up with your doctor for further care. Your ultrasound does not show any acute abnormalities today. Your laboratory testing is normal. Dr. Alicia states that she called in Valtrex for you, you can pick this up at the pharmacy. Discharge Date/Time: 07/22/19 18:37
[2019-07-22 16:19] LABS: BILIRUBIN,URINE NEGATIVE (NEGATIVE); CLARITY,URINE CLEAR (CLEAR); GLUCOSE, URINE (UA) NEGATIVE (NEGATIVE); KETONES,URINE (UA) NEGATIVE (NEGATIVE); LEUKOCYTE ESTERASE, URINE NEGATIVE (NEGATIVE); NITRITE,URINE NEGATIVE (NEGATIVE); OCCULT BLOOD,URINE NEGATIVE (NEGATIVE); PROTEIN,URINE NEGATIVE (NEGATIVE); UROBILINOGEN,URINE 1 (NORMAL) E.U./dL (NORMAL)
[2019-07-22 16:21] LABS: PLATELET ESTIMATE, MANUAL NORMAL (130-450,000) (NORMAL); PLATELET MORPHOLOGY NORMAL APPEARANCE (NORMAL)
--- NOTE | 2019-07-22 17:58 | Ultrasound Report ---
Reason: abd pain, 21 weeks preg, known abruption Procedure Date: 07/22/2019 Accession Number: [id number] / [id number] Procedure: US - OB 14+ Weeks CPT Code: Final Report FULL RESULT: EXAM: FOLLOW-UP OBSTETRICAL ULTRASOUND EXAM DATE: 07/22/2019 05:38 PM. CLINICAL HISTORY: Abdominal pain, 21 weeks , known abruption. COMPARISON: OB F/U OR REPEAT 06/21/2019 11:39 AM. TECHNIQUE: Real-time sonographic evaluation of the fetus performed by the farm equipment engineer. Additional transvaginal imaging to more accurately evaluate cervical length/placental position/etc. Multiple software support representative static images were saved for review. DATING: Established EGA 22 weeks 1 day with TAHIR 11/24/2019 based on LMP. EGA 22 weeks 3 days with TAHIR 11/22/2019 based on first ultrasound. EGA 22 weeks 1 day with TAHIR 11/24/2019 based on the current ultrasound. GENERAL EVALUATION Cam[place] . Cardiac activity: 149 bpm. movement: Visualized. Presentation: Cephalic. Placenta: Posterior position. Again demonstrated is a hypoechoic area located between the gestational sac and the myometrium extending from the fundus to the internal os. The appearance is without significant change. Amniotic fluid: Normal. MVP 4.1 cm. BIOMETRY Bi-Parietal Diameter (BPD): 5.3 cm, 22 weeks 1 day Head Circumference (HC): 20.3 cm, 22 weeks 3 days Abdominal Circumference (AC): 17.1 cm, 22 weeks 0 days Femur Length (FL): 3.7 cm, 21 weeks 5 days Estimated Weight: 467 g, 36th percentile for age. MATERNAL STRUCTURES Cervix measures 3.6 cm in length. IMPRESSION: 1. Single live intrauterine fetus with ultrasound age based on today's measurement concordant with previously established clinical age. 2. The hypoechoic area between the gestational sac and the myometrium appears without significant change since 04/22/2019 and would be consistent with described perigestational bleed or placental abruption. 3. Normal interval growth compared to date of prior biometry. RADIA
[2019-07-22 18:37] VITALS: BP 102/67
[2019-07-22 21:15] LABS: CANDIDA GROUP DNA NEGATIVE (NEGATIVE); CANDIDA KRUSEI DNA NEGATIVE (NEGATIVE); TRICHOMONAS VAGINALIS DNA NEGATIVE (NEGATIVE)
== END 2019-07-22 18:37 | disposition home or self-care (01) ==
LOC: ED 15:17
DX: O98.812 Other maternal infectious and parasitic diseases complicating pregnancy, second trimester (principal); R36.0 Urethral discharge without blood; O99.332 Smoking (tobacco) complicating pregnancy, second trimester; Z3A.21 21 weeks gestation of pregnancy
CPT/HCPCS: 36415; 76805; 80053; 81001; 81003; 81599; 83690; 85025; 87086; 87661; 87801; 99284

== ENCOUNTER 2019-07-22 15:32 | Outpatient (CLI) | payer MEDICAID | END 2019-07-22 15:33 | disposition home or self-care (01) | LOC: LAB 15:32 | PROVIDERS: ATTEND Obstetrics & Gynecology | DX: R36.0 Urethral discharge without blood (principal) | CPT/HCPCS: 36415; 81599 ==

== ENCOUNTER 2019-09-03 11:30 | Outpatient (CLI) | payer MEDICAID ==
[2019-09-03 19:02] LABS: CANDIDA GROUP DNA POSITIVE (NEGATIVE); CANDIDA KRUSEI DNA NEGATIVE (NEGATIVE); TRICHOMONAS VAGINALIS DNA NEGATIVE (NEGATIVE)
[2019-09-03 20:11] LABS: TRICHOMONAS VAGINALIS DNA NEGATIVE (NEGATIVE)
== END 2019-09-03 23:59 | disposition home or self-care (01) ==
LOC: LAB.R 11:30
PROVIDERS: ATTEND Obstetrics & Gynecology
DX: O62.8 Other abnormalities of forces of labor (principal); Z36.89 Encounter for other specified antenatal screening; Z3A.00 Weeks of gestation of pregnancy not specified
CPT/HCPCS: 82731; 87491; 87591; 87661; 87801

== ENCOUNTER 2019-09-03 12:02 | Outpatient (CLI) | payer MEDICAID ==
[2019-09-03 12:33] LABS: BILIRUBIN,URINE NEGATIVE (NEGATIVE); GLUCOSE, URINE (UA) NEGATIVE (NEGATIVE); KETONES,URINE (UA) NEGATIVE (NEGATIVE); LEUKOCYTE ESTERASE, URINE NEGATIVE (NEGATIVE); NITRITE,URINE NEGATIVE (NEGATIVE); OCCULT BLOOD,URINE NEGATIVE (NEGATIVE); PROTEIN,URINE NEGATIVE (NEGATIVE); UROBILINOGEN,URINE >=8.0 E.U./dL (NORMAL)
[2019-09-03 12:34] VITALS: BP 111/52
[2019-09-03 12:36] LABS: CLARITY,URINE CLEAR (CLEAR)
[2019-09-03 12:51] LABS: BACTERIA,URINE Few /HPF (None Seen); RBC,URINE 0-5 /HPF (0-5); SQUAMOUS EPITHELIAL CELL,UR FEW Squamous (<= Few)
[2019-09-03 12:57] LABS: BASOPHILS % (AUTO) 0.4 %; EOSINOPHILS % (AUTO) 0.6 %; HGB - HEMOGLOBIN 7.8 g/dL (12.0-16.0); LYMPHOCYTES # (AUTO) 0.9 10^3/uL (1.5-3.5); MEAN CORPUSCULAR HEMOGLOBIN 21.4 pg (27.0-31.0); MEAN CORPUSCULAR HGB CONC 28.3 g/dL (32.0-36.0); MEAN CORPUSCULAR VOLUME 75.6 fL (81.0-99.0); MEAN PLATELET VOLUME 11.2 fL (7.9-10.8); MONOCYTES # (AUTO) 0.4 10^3/uL (0.0-1.0); NEUTROPHILS # (AUTO) 3.8 10^3/uL (1.5-6.6); NEUTROPHILS % (AUTO) 74.2 %; PLT - PLATELET COUNT 161 10^3/uL (130-450); RED BLOOD COUNT 3.65 10^6/uL (4.20-5.40); RED CELL DISTRIBUTION WIDTH 17.9 % (12.0-15.0); WHITE BLOOD COUNT 5.1 x10^3/uL (4.8-10.8)
[2019-09-03 13:18] LABS: HB2 TOTAL 8.1 g/dL; HEMOGLOBIN A1C 0.28 g/dL; HEMOGLOBIN A1C % 5.3 % (4.6-6.2)
[2019-09-03 13:20] LABS: ALBUMIN 2.5 g/dL (3.2-5.5); ALBUMIN/GLOBULIN RATIO 0.6 (1.0-2.2); BILIRUBIN,TOTAL 0.4 mg/dL (0.2-1.0); CALCIUM 8.4 mg/dL (8.5-10.3); CREATININE 0.5 mg/dL (0.4-1.0); TOTAL PROTEIN 6.6 g/dL (6.7-8.2)
[2019-09-03 13:32] LABS: FERRITIN 2.7 ng/mL (11.0-306.8)
[2019-09-03 13:35] LABS: FOLATE 19.2 ng/mL (5.90 - >24.8)
--- NOTE | 2019-09-03 13:38 | Ultrasound Report ---
PROCEDURE: OB Transvaginal INDICATIONS: contractions, TAHIR 11/24/2019 TECHNIQUE: Transvaginal sonographic imaging of the cervix COMPARISON: 07/22/2019 FINDINGS: Multiple limited grayscale images of the cervix were acquired. Cervical length measured 4.5 cm. There is no evidence for funneling of the internal cervical os. No suspicious fluid collections identified . IMPRESSION: Cervical length measures 4.5 cm. No evidence for funneling of the internal cervical os. Reviewed by: Maxim Cook MD on 09/03/2019 1:36 PM PDT Approved by: Maxim Cook MD on 09/03/2019 1:36 PM PDT Station ID: [id number]
[2019-09-03] MEDS ORDERED: IRON DEXTRAN 1,500 MG in SODIUM CHLORIDE 0.9% 500 ML IV ONE (14:00)
[2019-09-03] MEDS ORDERED: LACTATED RINGERS 1,000 ML IV ONE ×2 (14:02→14:42)
[2019-09-03] MEDS ORDERED: CYANOCOBALAMIN 1,000 MCG/ML VIAL IM ONE (14:02)
[2019-09-03] MEDS ORDERED: ONDANSETRON 4 MG/2 ML VIAL IVP ONE (14:02)
[2019-09-03] MEDS ORDERED: POTASSIUM CHLORIDE 20 MEQ TABLET PO ONE (14:04)
--- NOTE | 2019-09-03 14:15 | PROVIDER PROGRESS NOTE ---
- HPI Chief Complaint: Other (Pt is a 33yo at 27w2d by first trimester scan not c/w LMP presents with c/o 2 days worsening abdominal pain and cramping. Has noted it intermittently for several weeks, but got more intense yesterday. No leak of fluid or bleeding, active fetus. Also c/o fatigue, generalized malaise, mild constipation and left sided abdominal cramping. No n/v/f/c or dysuria. No respiratory complaints. Reports receiving parenteral iron and B12 intermittantly since gastric bypass but none recently. complicated by maternal obesity, severe anemia, second trimester bleeding, AMA. Problems also include asthma, depression, anxiety, +HSV, h/o alcoholism/smoking/marijuana use) Current : Current EDU 11/24/19 Gestation 28 Weeks and 2 Days 4 Para 3 Vital Signs Temperature 98.2 F 09/03/19 12:20 Heart Rate 75 09/03/19 12:20 Respiratory Rate 16 09/03/19 12:20 Blood Pressure 111/52 L 09/03/19 12:20 O2 Saturation 100 09/03/19 12:20 Temperature 98.2 F 09/03/19 12:20 Heart Rate 75 09/03/19 12:20 Respiratory Rate 16 09/03/19 12:20 Blood Pressure 111/52 L 09/03/19 12:20 O2 Saturation 100 09/03/19 12:20 - Exam GEN/ Pale appearing, anxious, in no distress. RESP/ CTA CV/ RRR, tachycardia. No murmur appreciated ABD/ Obese, gravid, tendernes in LLQ, otherwise non-tender, no CVAT VE/ deferred (TVUS today cervix 4.5cm long/closed, FFN neg) - Procedures OB Procedure Performed: NST Diagnosis/Indication for NST: labor NST Procedure: NST Procedure Start Date 09/03/19 Start Time 12:18 Stop Time 12:55 Vibroacoustic Stimulation Used No Patient States Movement Yes Service Date of procedure: 09/03/19 Procedure Details: Category 1 Contractions q3-5 Findings: Labs significant for marked microcytic anemia, iron and B12 deficiencies, hypok alemia, high urine spec grav. - Plan Plan: 33yo at 27w2d with contractions, not in labor. Plan hydration, obs. Chronic constipation could be source of LLQ tenderness and cramping; plan mag citrate at home. Discussed use and counseled not to use chronically. Iron and B12 deficiencies. 1510mg iron is deficit for target hgb 13.0. 1500mg ordered. B12 1000mcg ordered Will need these on a regular basis. Continue obs and reassess. Fetus stable
--- NOTE | 2019-09-03 16:24 | PROVIDER PROGRESS NOTE ---
Subjective - Prog Note Date Prog Note Date: 09/03/19 Prog Note Time: 16:24 - Subjective Subjective: Feeling better. She reports contractions have decreased in frequency, duration and intensity since fluid bolus. Iron infusing now. Off monitor. Will continue to follow, DC home if feeling well. Objective - Vital Signs/Intake & Output Vital Signs: Vital Signs x48h Temp Pulse Resp BP Pulse Ox 09/03/19 12:20 98.2 F 75 16 111/52 L 100 - Lab Results Fish Bones: 09/03/19 12:45 09/03/19 12:45 Other Labs: Lab Results x24hrs 09/03/19 09/03/19 09/03/19 Range/Units 12:45 12:45 12:45 WBC (4.8-10.8) x10^3/uL RBC (4.20-5.40) 10^6/uL Hgb (12.0-16.0) g/dL Hct (37.0-47.0) % MCV (81.0-99.0) fL MCH (27.0-31.0) pg MCHC (32.0-36.0) g/dL RDW (12.0-15.0) % Plt Count (130-450) 10^3/uL MPV (7.9-10.8) fL Neut # (Auto) (1.5-6.6) 10^3/uL Lymph # (Auto) (1.5-3.5) 10^3/uL [place] # (Auto) (0.0-1.0) 10^3/uL Eos # (Auto) (0.0-0.7) 10^3/uL Baso # (Auto) (0.0-0.1) 10^3/uL Absolute Nucleated RBC x10^3/uL Nucleated RBC % /100WBC Sodium 136 (135-145) mmol/L Potassium 3.5 (3.5-5.0) mmol/L Chloride 102 (101-111) mmol/L Carbon Dioxide 26 (21-32) mmol/L Anion Gap 8.0 (6-13) BUN 5 L (6-20) mg/dL Creatinine 0.5 (0.4-1.0) mg/dL Estimated GFR (MDRD) 140 (>89) Glucose 98 (70-100) mg/dL Glycated Hemoglobin 5.3 (4.6-6.2) % Estim Average Glucose 105 H (70-100) Calcium 8.4 L (8.5-10.3) mg/dL Iron 23 L (28-170) ug/dL TIBC 865 H (250-450) ug/dL % Saturation 3 L (20-50) % Transferrin 618 H (192-382) mg/dL Ferritin 2.7 L (11.0-306.8) ng/mL Total Bilirubin 0.4 (0.2-1.0) mg/dL AST 20 (10-42) IU/L ALT 11 (10-60) IU/L Alkaline Phosphatase 65 (42-121) IU/L Total Protein 6.6 L (6.7-8.2) g/dL Albumin 2.5 L (3.2-5.5) g/dL Globulin 4.1 (2.1-4.2) g/dL Albumin/Globulin Ratio 0.6 L (1.0-2.2) Vitamin B12 148 L (180-914) pg/mL Folate 19.20 (5.90 - >24.8) ng/mL Urine Color Urine Clarity (CLEAR) Urine pH (5.0-7.5) PH Ur Specific [place] (1.002-1.030) Urine Protein (NEGATIVE) mg/dL Urine Glucose (UA) (NEGATIVE) mg/dL Urine Ketones (NEGATIVE) mg/dL Urine Occult Blood (NEGATIVE) Urine Nitrite (NEGATIVE) Urine Bilirubin (NEGATIVE) Urine Urobilinogen (NORMAL) E.U./dL Ur Leukocyte Esterase (NEGATIVE) Urine RBC (0-5) /HPF Urine WBC (0-5) /HPF Ur Squamous Epith Cells (<= Few) Urine Bacteria (None Seen) /HPF Urine Culture Comments 09/03/19 09/03/19 Range/Units 12:45 12:10 WBC 5.1 (4.8-10.8) x10^3/uL RBC 3.65 L (4.20-5.40) 10^6/uL Hgb 7.8 L (12.0-16.0) g/dL Hct 27.6 L (37.0-47.0) % MCV 75.6 L (81.0-99.0) fL MCH 21.4 L (27.0-31.0) pg MCHC 28.3 L (32.0-36.0) g/dL RDW 17.9 H (12.0-15.0) % Plt Count 161 (130-450) 10^3/uL MPV 11.2 H (7.9-10.8) fL Neut # (Auto) 3.8 (1.5-6.6) 10^3/uL Lymph # (Auto) 0.9 L (1.5-3.5) 10^3/uL [place] # (Auto) 0.4 (0.0-1.0) 10^3/uL Eos # (Auto) 0.0 (0.0-0.7) 10^3/uL Baso # (Auto) 0.0 (0.0-0.1) 10^3/uL Absolute Nucleated RBC 0.00 x10^3/uL Nucleated RBC % 0.0 /100WBC Sodium (135-145) mmol/L Potassium (3.5-5.0) mmol/L Chloride (101-111) mmol/L Carbon Dioxide (21-32) mmol/L Anion Gap (6-13) BUN (6-20) mg/dL Creatinine (0.4-1.0) mg/dL Estimated GFR (MDRD) (>89) Glucose (70-100) mg/dL Glycated Hemoglobin (4.6-6.2) % Estim Average Glucose (70-100) Calcium (8.5-10.3) mg/dL Iron (28-170) ug/dL TIBC (250-450) ug/dL % Saturation (20-50) % Transferrin (192-382) mg/dL Ferritin (11.0-306.8) ng/mL Total Bilirubin (0.2-1.0) mg/dL AST (10-42) IU/L ALT (10-60) IU/L Alkaline Phosphatase (42-121) IU/L Total Protein (6.7-8.2) g/dL Albumin (3.2-5.5) g/dL Globulin (2.1-4.2) g/dL Albumin/Globulin Ratio (1.0-2.2) Vitamin B12 (180-914) pg/mL Folate (5.90 - >24.8) ng/mL Urine Color YELLOW Urine Clarity CLEAR (CLEAR) Urine pH 7.0 (5.0-7.5) PH Ur Specific [place] 1.020 (1.002-1.030) Urine Protein NEGATIVE (NEGATIVE) mg/dL Urine Glucose (UA) NEGATIVE (NEGATIVE) mg/dL Urine Ketones NEGATIVE (NEGATIVE) mg/dL Urine Occult Blood NEGATIVE (NEGATIVE) Urine Nitrite NEGATIVE (NEGATIVE) Urine Bilirubin NEGATIVE (NEGATIVE) Urine Urobilinogen >=8.0 H (NORMAL) E.U./dL Ur Leukocyte Esterase NEGATIVE (NEGATIVE) Urine RBC 0-5 (0-5) /HPF Urine WBC 0-3 (0-5) /HPF Ur Squamous Epith Cells FEW Squamous (<= Few) Urine Bacteria Few (None Seen) /HPF Urine Culture Comments NOT INDICATED
--- NOTE | 2019-09-03 18:16 | PROVIDER PROGRESS NOTE ---
Subjective - Prog Note Date Prog Note Date: 09/03/19 Prog Note Time: 18:14 - Subjective Subjective: Feeling much better. Not noticing contractions any longer. Wants to go home VSS afeb No contractions on monitor. Plan DC home Encouraged to stay well hydrated. Recommend repeat dose of B12 in 2 weeks, then monthly. Will likely need another dose IV iron around the time of delivery. Continue to follow parameters. DC home. F/U scheduled in 2 weeks. Objective - Vital Signs/Intake & Output Vital Signs: Vital Signs x48h Temp Pulse Resp BP Pulse Ox 09/03/19 12:20 98.2 F 75 16 111/52 L 100 - Lab Results Fish Bones: 09/03/19 12:45 09/03/19 12:45 Other Labs: Lab Results x24hrs 09/03/19 09/03/19 09/03/19 Range/Units 12:45 12:45 12:45 WBC (4.8-10.8) x10^3/uL RBC (4.20-5.40) 10^6/uL Hgb (12.0-16.0) g/dL Hct (37.0-47.0) % MCV (81.0-99.0) fL MCH (27.0-31.0) pg MCHC (32.0-36.0) g/dL RDW (12.0-15.0) % Plt Count (130-450) 10^3/uL MPV (7.9-10.8) fL Neut # (Auto) (1.5-6.6) 10^3/uL Lymph # (Auto) (1.5-3.5) 10^3/uL [place] # (Auto) (0.0-1.0) 10^3/uL Eos # (Auto) (0.0-0.7) 10^3/uL Baso # (Auto) (0.0-0.1) 10^3/uL Absolute Nucleated RBC x10^3/uL Nucleated RBC % /100WBC Sodium 136 (135-145) mmol/L Potassium 3.5 (3.5-5.0) mmol/L Chloride 102 (101-111) mmol/L Carbon Dioxide 26 (21-32) mmol/L Anion Gap 8.0 (6-13) BUN 5 L (6-20) mg/dL Creatinine 0.5 (0.4-1.0) mg/dL Estimated GFR (MDRD) 140 (>89) Glucose 98 (70-100) mg/dL Glycated Hemoglobin 5.3 (4.6-6.2) % Estim Average Glucose 105 H (70-100) Calcium 8.4 L (8.5-10.3) mg/dL Iron 23 L (28-170) ug/dL TIBC 865 H (250-450) ug/dL % Saturation 3 L (20-50) % Transferrin 618 H (192-382) mg/dL Ferritin 2.7 L (11.0-306.8) ng/mL Total Bilirubin 0.4 (0.2-1.0) mg/dL AST 20 (10-42) IU/L ALT 11 (10-60) IU/L Alkaline Phosphatase 65 (42-121) IU/L Total Protein 6.6 L (6.7-8.2) g/dL Albumin 2.5 L (3.2-5.5) g/dL Globulin 4.1 (2.1-4.2) g/dL Albumin/Globulin Ratio 0.6 L (1.0-2.2) Vitamin B12 148 L (180-914) pg/mL Folate 19.20 (5.90 - >24.8) ng/mL Urine Color Urine Clarity (CLEAR) Urine pH (5.0-7.5) PH Ur Specific [place] (1.002-1.030) Urine Protein (NEGATIVE) mg/dL Urine Glucose (UA) (NEGATIVE) mg/dL Urine Ketones (NEGATIVE) mg/dL Urine Occult Blood (NEGATIVE) Urine Nitrite (NEGATIVE) Urine Bilirubin (NEGATIVE) Urine Urobilinogen (NORMAL) E.U./dL Ur Leukocyte Esterase (NEGATIVE) Urine RBC (0-5) /HPF Urine WBC (0-5) /HPF Ur Squamous Epith Cells (<= Few) Urine Bacteria (None Seen) /HPF Urine Culture Comments 09/03/19 09/03/19 Range/Units 12:45 12:10 WBC 5.1 (4.8-10.8) x10^3/uL RBC 3.65 L (4.20-5.40) 10^6/uL Hgb 7.8 L (12.0-16.0) g/dL Hct 27.6 L (37.0-47.0) % MCV 75.6 L (81.0-99.0) fL MCH 21.4 L (27.0-31.0) pg MCHC 28.3 L (32.0-36.0) g/dL RDW 17.9 H (12.0-15.0) % Plt Count 161 (130-450) 10^3/uL MPV 11.2 H (7.9-10.8) fL Neut # (Auto) 3.8 (1.5-6.6) 10^3/uL Lymph # (Auto) 0.9 L (1.5-3.5) 10^3/uL [place] # (Auto) 0.4 (0.0-1.0) 10^3/uL Eos # (Auto) 0.0 (0.0-0.7) 10^3/uL Baso # (Auto) 0.0 (0.0-0.1) 10^3/uL Absolute Nucleated RBC 0.00 x10^3/uL Nucleated RBC % 0.0 /100WBC Sodium (135-145) mmol/L Potassium (3.5-5.0) mmol/L Chloride (101-111) mmol/L Carbon Dioxide (21-32) mmol/L Anion Gap (6-13) BUN (6-20) mg/dL Creatinine (0.4-1.0) mg/dL Estimated GFR (MDRD) (>89) Glucose (70-100) mg/dL Glycated Hemoglobin (4.6-6.2) % Estim Average Glucose (70-100) Calcium (8.5-10.3) mg/dL Iron (28-170) ug/dL TIBC (250-450) ug/dL % Saturation (20-50) % Transferrin (192-382) mg/dL Ferritin (11.0-306.8) ng/mL Total Bilirubin (0.2-1.0) mg/dL AST (10-42) IU/L ALT (10-60) IU/L Alkaline Phosphatase (42-121) IU/L Total Protein (6.7-8.2) g/dL Albumin (3.2-5.5) g/dL Globulin (2.1-4.2) g/dL Albumin/Globulin Ratio (1.0-2.2) Vitamin B12 (180-914) pg/mL Folate (5.90 - >24.8) ng/mL Urine Color YELLOW Urine Clarity CLEAR (CLEAR) Urine pH 7.0 (5.0-7.5) PH Ur Specific [place] 1.020 (1.002-1.030) Urine Protein NEGATIVE (NEGATIVE) mg/dL Urine Glucose (UA) NEGATIVE (NEGATIVE) mg/dL Urine Ketones NEGATIVE (NEGATIVE) mg/dL Urine Occult Blood NEGATIVE (NEGATIVE) Urine Nitrite NEGATIVE (NEGATIVE) Urine Bilirubin NEGATIVE (NEGATIVE) Urine Urobilinogen >=8.0 H (NORMAL) E.U./dL Ur Leukocyte Esterase NEGATIVE (NEGATIVE) Urine RBC 0-5 (0-5) /HPF Urine WBC 0-3 (0-5) /HPF Ur Squamous Epith Cells FEW Squamous (<= Few) Urine Bacteria Few (None Seen) /HPF Urine Culture Comments NOT INDICATED
== END 2019-09-03 18:30 | disposition home or self-care (01) ==
LOC: WFO 12:02 → FBP 12:03 → WFO 18:30
PROVIDERS: ATTEND Obstetrics & Gynecology
DX: O62.8 Other abnormalities of forces of labor (principal); O99.89 Other specified diseases and conditions complicating pregnancy, childbirth and the puerperium; K59.09 Other constipation; R82.998 Other abnormal findings in urine; O99.012 Anemia complicating pregnancy, second trimester; D50.9 Iron deficiency anemia, unspecified; D51.9 Vitamin B12 deficiency anemia, unspecified; Z36.89 Encounter for other specified antenatal screening; Z3A.27 27 weeks gestation of pregnancy; O99.212 Obesity complicating pregnancy, second trimester; E66.9 Obesity, unspecified; O09.522 Supervision of elderly multigravida, second trimester; O99.512 Diseases of the respiratory system complicating pregnancy, second trimester; J45.909 Unspecified asthma, uncomplicated; O99.342 Other mental disorders complicating pregnancy, second trimester; F41.9 Anxiety disorder, unspecified; F32.9 Major depressive disorder, single episode, unspecified; O98.512 Other viral diseases complicating pregnancy, second trimester; B00.9 Herpesviral infection, unspecified; O99.282 Endocrine, nutritional and metabolic diseases complicating pregnancy, second trimester; E87.6 Hypokalemia; F10.21 Alcohol dependence, in remission; O99.842 Bariatric surgery status complicating pregnancy, second trimester; Z87.891 Personal history of nicotine dependence
CPT/HCPCS: 36415; 76817; 80053; 81001; 82306; 82607; 82728; 82731; 82746; 82747; 83036; 83540; 84466; 85025; 87481; 87491; 87591; 87661; 87801; 99215; A9270; J1750; J7120; 87086

== ENCOUNTER 2019-10-10 10:40 | Outpatient (CLI) | payer MEDICAID ==
[2019-10-10] MEDS ORDERED: METOCLOPRAMIDE 10 MG/2 ML VIAL IVP SCH (11:00)
[2019-10-10] MEDS ORDERED: LACTATED RINGERS 500 ML IV ONE (11:05)
[2019-10-10 11:29] LABS: BASOPHILS % (AUTO) 0.4 %; EOSINOPHILS # (AUTO) 0.1 10^3/uL (0.0-0.7); EOSINOPHILS % (AUTO) 0.7 %; LYMPHOCYTES # (AUTO) 1.1 10^3/uL (1.5-3.5); MEAN CORPUSCULAR HEMOGLOBIN 28.4 pg (27.0-31.0); MEAN CORPUSCULAR HGB CONC 31.3 g/dL (32.0-36.0); MEAN PLATELET VOLUME 9.5 fL (7.9-10.8); MONOCYTES # (AUTO) 0.6 10^3/uL (0.0-1.0); MONOCYTES % (AUTO) 8.3 %; NEUTROPHILS % (AUTO) 73.4 %; PLT - PLATELET COUNT 135 10^3/uL (130-450); RED BLOOD COUNT 3.87 10^6/uL (4.20-5.40); WHITE BLOOD COUNT 6.9 x10^3/uL (4.8-10.8)
[2019-10-10 11:30] LABS: BILIRUBIN,URINE NEGATIVE (NEGATIVE); GLUCOSE, URINE (UA) NEGATIVE (NEGATIVE); KETONES,URINE (UA) NEGATIVE (NEGATIVE); LEUKOCYTE ESTERASE, URINE NEGATIVE (NEGATIVE); NITRITE,URINE POSITIVE (NEGATIVE); OCCULT BLOOD,URINE NEGATIVE (NEGATIVE); PH,URINE 6.5 PH (5.0-7.5); PROTEIN,URINE NEGATIVE (NEGATIVE); UROBILINOGEN,URINE 1 (NORMAL) E.U./dL (NORMAL)
[2019-10-10 11:38] LABS: CLARITY,URINE HAZY (CLEAR)
[2019-10-10 11:39] LABS: BACTERIA,URINE Moderate /HPF (None Seen); RBC,URINE None Seen /HPF (0-5); SQUAMOUS EPITHELIAL CELL,UR MANY Squamous (<= Few)
[2019-10-10 11:50] LABS: CREATININE,URINE 139.6 mg/dL; PROTEIN/CREATININE RATIO,URINE 0.2 (<=0.2)
[2019-10-10 11:54] LABS: PLATELET ESTIMATE, MANUAL NORMAL (130-450,000) (NORMAL); PLATELET MORPHOLOGY NORMAL APPEARANCE (NORMAL)
[2019-10-10 11:59] LABS: ALBUMIN 2.4 g/dL (3.2-5.5); ALBUMIN/GLOBULIN RATIO 0.7 (1.0-2.2); BILIRUBIN,TOTAL 0.7 mg/dL (0.2-1.0); CALCIUM 8.1 mg/dL (8.5-10.3); CREATININE 0.5 mg/dL (0.4-1.0); TOTAL PROTEIN 5.9 g/dL (6.7-8.2)
[2019-10-10 12:33] VITALS: BP 97/57
--- NOTE | 2019-10-10 14:30 | PROCEDURE REPORT ---
- HPI Current [facility] 12/02/19 Gestation 32 Weeks and 3 Days 4 Para 3 Vital Signs Temperature 98.4 F 10/10/19 11:01 Heart Rate 95 10/10/19 11:01 Respiratory Rate 18 10/10/19 11:01 Blood Pressure 101/62 10/10/19 11:01 O2 Saturation 98 10/10/19 11:01 Temperature 98.4 F 10/10/19 11:01 Heart Rate 75 10/10/19 12:15 Respiratory Rate 18 10/10/19 11:01 Blood Pressure 97/57 L 10/10/19 12:15 O2 Saturation 98 10/10/19 11:01 - NST Procedure NST Procedure Start Time 12:18 Stop Time 12:55 - Results and Plan Findings/Impression: S: lost mucous plug last HS, some new tightening, worried. No LOF, no VB. MCGEE since yesterday, doesn't tend to get MCGEE. No visual changes or upper abd pain. Is feeling much more swollen than usual but today feels OK. Loose stools and nausea which is new. No ill contacts. O: BP 90/60s, VSS Alert, smiling, NAD Abd soft, nt/nd SVE fingertip/50/high/medium/posterior Vertex by US CL 2.8 NST category 1, periods of "prolonged accels" = technically periods of tachycardia. Great LTV, FHT went down to normal baseline prior to discharge [place] neg A/P: 34yo at 32w3d with... Threatened labor: no UC here. Neg FFN, normal CL, SVE OK. PTL precautions given. Wet mount neg. UA normal/contaminated. GC/CT pending. Changed TAHIR: Well-dated by 7w US --> 12/01. That was off 8d from LMP. TAHIR changed to reflect the 7w US Macrosomia: EFW at [facility] 09/25/19: EFW 97%ile, AC >99%ile, MVP 4.3, MILDRED 14, vertex, ANI persists 6cm length without affecting fetus. Prior US was 36%ile. TAHIR changed to 12/01 here. [facility] has been using the correct TAHIR of 12/01. New TAHIR puts her at 32w3d. Repeat US 3w from 09/24. check CBGs Thrombocytopenia: likely gestational, needs recheck soon Low B12 earlier in preg, now normal S/p gastric bypass: Lytes are normal, IoCa is pending Significant anemia this preg, s/p IVFe infusion. Hct today much improved to 35 and is normocytic with low-normal iron level but transferrin high. There is hypochromasia and anisocytosis--will likely become iron deficient again soon. Taking po Fe. Recheck in 3w to see if she needs iron transfusion again prior to remberto. MCGEE: resolved with reglan. No edema, normal DTR, normal BP, normal P:C, normal LFT. Plts a bit low at 130 GI symptoms: improved/resolving following IVF 500cc + reglan. Covid testing done.
--- NOTE | 2019-10-10 14:31 | Ultrasound Report ---
PROCEDURE: OB Transvaginal INDICATIONS: labor rule out OUTSIDE/PRIOR DATING DATA: Last menstrual period (LMP): 02/17/19. LMP-based estimated date of delivery (TAHIR): 11/24/19. First dating scan (date and location): 04/17/19. Estimated date of delivery (TAHIR) from first dating scan: 11/24/19. TECHNIQUE: Real-time scanning was performed of the fetus, with image documentation. Endovaginal scanning: yes COMPARISON: OB ultrasound 09/03/19 FINDINGS: Maternal cervical canal: 2.9 cm long; normal length is 2.5 cm or more. Estimated gestational age from initial scan: 33 weeks 4 days. IMPRESSION: Cervix measures 2.9 cm. Reviewed by: Karina Goodwin MD on 10/10/2019 2:30 PM PDT Approved by: Karina Goodwin MD on 10/10/2019 2:30 PM PDT Station ID: [id number]
[2019-10-10 21:18] LABS: TRICHOMONAS VAGINALIS DNA NEGATIVE (NEGATIVE)
== END 2019-10-10 15:05 | disposition home or self-care (01) ==
LOC: WFO 10:40 → FBP 10:44 → WFO 15:05
PROVIDERS: ATTEND Obstetrics & Gynecology
DX: O99.89 Other specified diseases and conditions complicating pregnancy, childbirth and the puerperium (principal); R51 Headache; R19.4 Change in bowel habit; R11.0 Nausea; O99.113 Other diseases of the blood and blood-forming organs and certain disorders involving the immune mechanism complicating pregnancy, third trimester; D69.6 Thrombocytopenia, unspecified; O36.8330 Maternal care for abnormalities of the fetal heart rate or rhythm, third trimester, not applicable or unspecified; O36.63X0 Maternal care for excessive fetal growth, third trimester, not applicable or unspecified; O99.013 Anemia complicating pregnancy, third trimester; Z3A.32 32 weeks gestation of pregnancy; Z98.84 Bariatric surgery status; Z20.828 Contact with and (suspected) exposure to other viral communicable diseases
CPT/HCPCS: 36415; 76817; 80053; 81001; 82570; 82607; 82731; 83540; 84156; 84425; 84466; 85025; 87210; 87491; 87591; 87635; 87661; 96361; 96374; 99215; J2765; 81003; 87081; 87086

== ENCOUNTER 2019-10-11 15:44 | Inpatient (IN) | payer MEDICAID ==
[2019-10-11 16:12] LABS: BILIRUBIN,URINE NEGATIVE (NEGATIVE); GLUCOSE, URINE (UA) NEGATIVE (NEGATIVE); KETONES,URINE (UA) 15 mg/dL (NEGATIVE); LEUKOCYTE ESTERASE, URINE NEGATIVE (NEGATIVE); NITRITE,URINE POSITIVE (NEGATIVE); OCCULT BLOOD,URINE LARGE (NEGATIVE); PROTEIN,URINE 100 mg/dL (NEGATIVE); UROBILINOGEN,URINE 1 (NORMAL) E.U./dL (NORMAL)
[2019-10-11 16:16] LABS: BACTERIA,URINE Many /HPF (None Seen); CLARITY,URINE BLOODY (CLEAR); RBC,URINE TNTC /HPF (0-5); SQUAMOUS EPITHELIAL CELL,UR NONE SEEN (<= Few)
[2019-10-11] MEDS ORDERED: ceFAZolin 2 GM in SODIUM CHLORIDE 0.9% 100ML 100 ML IV ONE (16:41)
[2019-10-11] MEDS ORDERED: LACTATED RINGERS 500 ML IV ONE (16:42)
--- NOTE | 2019-10-11 18:08 | Ultrasound Report ---
PROCEDURE: Retroperitoneal INDICATIONS: hematuria, flank pain TECHNIQUE: Real-time scanning was performed of the retroperitoneal organs, with image documentation. COMPARISON: None. FINDINGS: Kidneys: Kidneys are normal in size. Right kidney measures 11.3 cm long; left kidney measures 10.4 cm long. Right renal cortical thickness is 1.1 cm; left renal cortical thickness is 1.4 cm. Moderate right-sided hydronephrosis and hydroureter is seen with distal ureter measures up to 19 mm in diamet er. No gross obstructing renal stone is seen. No left-sided hydronephrosis. Visualized left ureter is normal in size. Prevoid bladder volume is 280 cc. Postvoid residual is 1.1 cc. No gross lateral wall abnormality is s een. Bilateral ureteral jets are noted more prominent on the left side. IMPRESSION: 1. Moderate right-sided hydronephrosis and hydroureter extending to right UVJ. No definite obstructin g stone is seen. 2. No left-sided hydronephrosis. No gross abnormality is seen in urinary bladder. Reviewed by: Sai Santillan MD on 10/11/2019 6:06 PM PDT Approved by: Sai Santillan MD on 10/11/2019 6:06 PM PDT Station ID: [id number]
[2019-10-11] MEDS ORDERED: oxyCODONE 5 MG TABLET PO PRN (18:47)
[2019-10-11] MEDS ORDERED: METOCLOPRAMIDE 10 MG/2 ML VIAL IVP PRN (18:47)
[2019-10-11] MEDS ORDERED: HYDROCORTISONE 1% CREAM 28 GM TUBE PR PRN (18:47)
[2019-10-11] MEDS ORDERED: WITCH HAZEL/GLYCERIN 1 PAD TOP PRN (18:47)
[2019-10-11] MEDS ORDERED: MORPHINE 2 MG/ML CARPUJECT IVP ONE ×2 (19:00→19:42)
[2019-10-11] MEDS ORDERED: MORPHINE PCA 50 MG IV PRN (19:43)
--- NOTE | 2019-10-11 19:55 | HISTORY & PHYSICAL EXAMINATION ---
Chief Complaint - Chief Complaint Chief Complaint: Bloody urine History of Present Illness - History of Present Illness HPI Comment/Other: Had bloody urine, soco, onset this afternoon. Advised to come to triage for eval. While in triage had abrupt onset of mod and then severe right CVA pain, colicy, 10/10 pain. Seen yesterday in triage for other complaints PMH: obesity resolved with gastric bypass. Hx of peptic ulcer. Depression. Genital HSV. Reactive airway disease (not true asthma hx) PSH: yuliet-en-y gastric bypass 2003 SH: Former smoker. No alcohol or drugs except for THC. Allergies: NKDA. Ibuprofen she avoids due to history of PUD. Meds: PNV and various supplements FH: no anesthesia problems OB: , TAHIR 12/01, EGA 32w4d. Uncomplicated prior pregnancies. This complicated by macrosomia 97%ile, thrombycytopenia, and iron deficiency anemia s/p iron transfusion. 99.0, 139 initially now 89, 115/67, 18 Alert, writhing, crying, holding her right flank Exquisite right CVA tenderness Category 1 NST Renal US: no obstruction, pyelo present right side, not severe UA: many bacteria, no squam, gross blood A/P: 34yo at 32w4d with pyelonephritis and a probable non-obstructing kidney stone with the recent start of classic pain. Admit, treat pyelo with cefepine and IV fluids. Treat presumptive nephrolithiasis with IVF, flomax, and pain control. Incidental , reassuring wellbeing, plan bid NST. Dep/anx continue zoloft and buspar. History - Past Medical History Cardiovascular: reports: None Respiratory: reports: None Neuro: reports: None Endocrine/Autoimmune: reports: None GI: reports: None VP TALENT MANAGEMENT: reports: None : reports: None HEENT: reports: None Psych: reports: None Musculoskeletal: reports: None Derm: reports: None - Past Surgical History General: reports: Gastric surgery - POLST Patient has POLST: No Meds/Allgy - Home Medications Home Medications: Ambulatory Orders Medication Instructions Recorded Confirmed Cyclobenzaprine [Flexeril] 10 mg PO DAILY 06/28/18 06/28/18 hydrOXYzine HCL [Hydroxyzine HCl] 10 mg PO DAILY 06/28/18 06/28/18 traZODone [Desyrel] 50 mg PO Q6H PRN 06/28/18 06/28/18 Hydrocodone/Acetaminophen 1 - 2 each PO Q6H PRN #14 tablet 07/16/18 [Hydrocodon-Acetaminophen 5-325] - Allergies Allergies/Adverse Reactions: Allergies Allergy/AdvReac Type Severity Reaction Status Date / Time ibuprofen AdvReac Nausea Verified 07/22/19 15:19 Exam - Vital Signs Vital Signs: Vital Signs x48h Temp Pulse Resp BP 10/11/19 15:52 99.0 F 139 H 18 115/67
[2019-10-11] MEDS: LACTATED RINGERS 1,000 ML IV SCH (20:02)
[2019-10-11] MEDS: ACETAMINOPHEN 500 MG TABLET PO SCH (20:02)
[2019-10-11] MEDS: TAMSULOSIN 0.4 MG CAPSULE PO SCH (20:03)
[2019-10-11] MEDS ORDERED: busPIRone 5 MG TABLET PO PRN (20:09)
[2019-10-11] MEDS ORDERED: HYDROmorphone PCA 20MG/100ML IV PRN (20:41)
[2019-10-11] MEDS: CEFEPIME 1 GM in SODIUM CHLORIDE 0.9% MINIBAG 100 ML IV SCH (21:15)
[2019-10-11] MEDS: SODIUM CHLORIDE FLUSH 0.9% 10 ML SYRINGE IVP SCH (21:19)
[2019-10-11] MEDS ORDERED: ceFAZolin 2 GM in SODIUM CHLORIDE 0.9% 100ML 100 ML IV SCH (23:00)
[2019-10-11] MEDS: ZOLPIDEM 5 MG TABLET PO PRN (23:09)
[2019-10-11] MEDS: SERTRALINE 50 MG TABLET PO SCH (23:09)
[2019-10-12] MEDS: LACTATED RINGERS 1,000 ML IV SCH ×4 (02:02→23:05)
[2019-10-12] MEDS: ACETAMINOPHEN 500 MG TABLET PO SCH ×3 (04:08→20:12)
[2019-10-12] MEDS: ONDANSETRON 4 MG/2 ML VIAL IVP PRN ×3 (07:47→17:28)
[2019-10-12] MEDS: SODIUM CHLORIDE FLUSH 0.9% 10 ML SYRINGE IVP SCH ×3 (07:48→17:28)
[2019-10-12] MEDS: CEFEPIME 1 GM in SODIUM CHLORIDE 0.9% MINIBAG 100 ML IV SCH ×2 (09:20→21:36)
[2019-10-12] MEDS: TAMSULOSIN 0.4 MG CAPSULE PO SCH ×2 (09:30→20:12)
[2019-10-12] MEDS ORDERED: HYDROmorphone PCA 20MG/100ML IV PRN (11:43)
--- NOTE | 2019-10-12 11:49 | PROVIDER PROGRESS NOTE ---
Subjective - Subjective Subjective: Pain controlled but still there. Background 06/27 all of the time. Colicy sharp flares. had emesis this am. No VB, no LOF. Handful of UC since waking. Good FM. aVSS periods of hypotension without tachycardia when pt is relaxed/recently dosed Alert, grimacing but much improved, NAD Abd soft, nt/nd No Left CVAT Right CVAT persists, significant A/P: 34yo ante with pyelo and clinical dx of nephrolithiasis. Improved pain control but that's it. Pyelo not worsening. Continue current plan, try to transition to po narcotics. Repeat US in am to rule out progressive obstruction needing drainage. Reassuring FWB. No evidence of labor. Objective - Vital Signs/Intake & Output Vital Signs: Vital Signs x48h Temp Pulse Resp BP BP Pulse Ox 10/12/19 09:27 97.9 F 86 17 91/50 L 95 10/12/19 07:24 97.9 F 90 18 97/62 97 10/12/19 07:18 18 10/12/19 06:00 97.7 F 98 20 118/63 98 10/12/19 04:07 93 18 102/56 L 100 Intake & Output: Intake & Output 10/09/19 10/10/19 10/11/19 10/12/19 23:59 23:59 23:59 23:59 Intake Total 350 2995 Output Total 430 2120 Balance -80 875 - Lab Results Other Labs: Lab Results x24hrs 10/11/19 Range/Units 15:45 Urine Color RED/BLOODY Urine Clarity BLOODY (CLEAR) Urine pH 7.0 (5.0-7.5) PH Ur Specific [place] 1.025 (1.002-1.030) Urine Protein 100 H (NEGATIVE) mg/dL Urine Glucose (UA) NEGATIVE (NEGATIVE) mg/dL Urine Ketones 15 H (NEGATIVE) mg/dL Urine Occult Blood LARGE H (NEGATIVE) Urine Nitrite POSITIVE H (NEGATIVE) Urine Bilirubin NEGATIVE (NEGATIVE) Urine Urobilinogen 1 (NORMAL) (NORMAL) E.U./dL Ur Leukocyte Esterase NEGATIVE (NEGATIVE) Urine RBC TNTC H (0-5) /HPF Urine WBC 0-3 (0-5) /HPF Ur Squamous Epith Cells NONE SEEN (<= Few) Urine Bacteria Many H (None Seen) /HPF Urine Culture Comments INDICATED
[2019-10-12] MEDS: oxyCODONE 5 MG TABLET PO SCH ×4 (13:15→21:37)
[2019-10-12] MEDS: HYDROmorphone PCA 20MG/100ML IV PRN ×2 (13:17→22:11)
[2019-10-12] MEDS: diphenhydrAMINE 25 MG CAPSULE PO PRN (18:07)
[2019-10-12] MEDS: ZOLPIDEM 5 MG TABLET PO PRN (22:32)
[2019-10-12] MEDS: SERTRALINE 50 MG TABLET PO SCH (22:32)
[2019-10-13] MEDS: oxyCODONE 5 MG TABLET PO SCH ×6 (04:14→20:30)
[2019-10-13] MEDS: ACETAMINOPHEN 500 MG TABLET PO SCH ×3 (04:14→20:29)
[2019-10-13] MEDS: LACTATED RINGERS 1,000 ML IV SCH ×2 (05:50→12:09)
[2019-10-13] MEDS: ONDANSETRON 4 MG/2 ML VIAL IVP PRN ×2 (08:30→22:45)
--- NOTE | 2019-10-13 08:34 | Ultrasound Report ---
PROCEDURE: Retroperitoneal INDICATIONS: Hydronephrosis, pyelo, clinical dx stone TECHNIQUE: Real-time scanning was performed of the retroperitoneal organs, with image documentation. COMPARISON: None. FINDINGS: Kidneys: Kidneys are normal in size. Right kidney measures 11.8 cm long; left kidney measures 10.6 cm long. Right renal cortical thickness is 1.0 cm; left renal cortical thickness is 1.3 cm. No evide nce of nephrolithiasis. Mild right hydronephrosis. No left hydronephrosis. Miscellaneous: No free abdominal fluid. Single living intrauterine gestation. IMPRESSION: 1. No change in moderate right hydronephrosis. Reviewed by: Nita Acevedo MD on 10/13/2019 8:33 AM PDT Approved by: Nita Acevedo MD on 10/13/2019 8:33 AM PDT Station ID: [id number]
[2019-10-13] MEDS: CEFEPIME 1 GM in SODIUM CHLORIDE 0.9% MINIBAG 100 ML IV SCH ×2 (10:07→22:19)
--- NOTE | 2019-10-13 11:35 | PROVIDER PROGRESS NOTE ---
Subjective - Subjective Subjective: Pain persists. Maybe a bit better but not by much. Bleeding in the urine is getting more pink and less red. UC q 20min. No VB, no LOF. Good FM. Near- emesis this am but didn't throw up, got zofran prior to that, tends to be pretty nauseated in the am in general. AVSS Grimacing, resting Right CVAT very tender Abd soft, nt/nd Fundus NT LE without edema, erythema, or cord Renal US unchanged today 34yo with kidney stone by clinical dx, pyelo by u.cx of 100k CFU of e.coli--pa nsensitive. Discussed need to wean off narcs and use for 4d or less to lessen risk of dependance/addcition and because the meds become much less effective at that point as well. Pt understands. Continue IVF and flomax for treatment. Continue IV abx for non-resolution of pain. May need urology consult. Objective - Vital Signs/Intake & Output Vital Signs: Vital Signs x48h Temp Pulse Resp BP Pulse Ox 10/13/19 07:56 18 10/13/19 07:30 98.2 F 75 18 87/53 L 95 10/13/19 04:00 97.7 F 73 16 93/59 L 97 Intake & Output: Intake & Output 10/10/19 10/11/19 10/12/19 10/13/19 23:59 23:59 23:59 23:59 Intake Total 350 6195 2160 Output Total 430 2935 360 Balance -80 3260 1800
[2019-10-13] MEDS: diphenhydrAMINE 25 MG CAPSULE PO PRN (14:12)
[2019-10-13] MEDS: TAMSULOSIN 0.4 MG CAPSULE PO SCH (20:30)
[2019-10-13] MEDS: SODIUM CHLORIDE FLUSH 0.9% 10 ML SYRINGE IVP SCH ×4 (22:19→22:55)
[2019-10-13] MEDS: DOCUSATE SODIUM 100 MG CAPSULE PO SCH (22:31)
[2019-10-13] MEDS: ZOLPIDEM 5 MG TABLET PO PRN (22:55)
[2019-10-13] MEDS: SERTRALINE 50 MG TABLET PO SCH (22:55)
[2019-10-14] MEDS: oxyCODONE 5 MG TABLET PO SCH ×4 (00:46→13:15)
[2019-10-14] MEDS ORDERED: METOCLOPRAMIDE 10 MG TABLET PO SCH (03:00)
[2019-10-14] MEDS: ACETAMINOPHEN 500 MG TABLET PO SCH ×2 (04:43→13:12)
[2019-10-14 05:50] LABS: BILIRUBIN,URINE NEGATIVE (NEGATIVE); GLUCOSE, URINE (UA) NEGATIVE (NEGATIVE); KETONES,URINE (UA) 40 mg/dL (NEGATIVE); LEUKOCYTE ESTERASE, URINE TRACE (NEGATIVE); NITRITE,URINE NEGATIVE (NEGATIVE); OCCULT BLOOD,URINE MODERATE (NEGATIVE); PROTEIN,URINE TRACE mg/dL (NEGATIVE); UROBILINOGEN,URINE 1 (NORMAL) E.U./dL (NORMAL)
[2019-10-14 05:57] LABS: BACTERIA,URINE Rare /HPF (None Seen); CLARITY,URINE CLEAR (CLEAR); SQUAMOUS EPITHELIAL CELL,UR MANY Squamous (<= Few)
[2019-10-14 05:58] LABS: YEAST,URINE PRESENT
[2019-10-14] MEDS: DOCUSATE SODIUM 100 MG CAPSULE PO SCH (08:52)
[2019-10-14] MEDS: SODIUM CHLORIDE FLUSH 0.9% 10 ML SYRINGE IVP SCH (09:01)
[2019-10-14] MEDS: ONDANSETRON 4 MG/2 ML VIAL IVP PRN (09:02)
[2019-10-14] MEDS: CEFEPIME 1 GM in SODIUM CHLORIDE 0.9% MINIBAG 100 ML IV SCH (10:15)
[2019-10-14 13:12] VITALS: BP 108/62
--- NOTE | 2019-10-14 13:17 | Discharge Plan ---
Discharge Plan Problem Reviewed?: Yes Disposition: Home, Self Care Condition: Fair Diet: Cardiac No Smoking: If you smoke, Please STOP! Call for help. Follow-up with: Abdirizak Francis MD [Provider Admit Priv/Credential] - 1-2 Days (Dr. Francis has appointment already)
--- NOTE | 2019-10-16 09:30 | DISCHARGE SUMMARY ---
Physician: Tiana Hurtado MD DATE OF ADMISSION: 10/12/2019 DATE OF DISCHARGE: 10/15/2019 ADMITTING DIAGNOSES 1. Acute pyelonephritis. 2. Acute nephrolithiasis. 3. Incidental at 32 weeks. DISCHARGE DIAGNOSES 1. Acute pyelonephritis. 2. Acute nephrolithiasis. 3. Incidental at 32 weeks. HOSPITAL COURSE: Patient had an acute onset of hematuria and a UA was abnormal and clean suggesting acute pyelonephritis. Then, in triage, she had an abrupt onset of severe right-sided CVA pain that w as colicky in nature. Patient had never had this before. She was clinically diagnosed with nephroli thiasis due to the classic symptoms. She received a renal ultrasound on admission and again at disch arge. She had mild hydronephrosis on the right side consistent with normal changes. She d id not have any evidence of obstruction. There was no worsening of the ultrasound from admission to discharge. 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 She received IV fluids and Flomax to try to treat her stone. Unfortunately, patient persisted in having significant pain. She is aware that we cannot give more than 4 or 5 days of narcotics as it increases the addiction rate sh arply and would affect the greatly. She understands and will wean off the narcotics approp riately over the next 2 days. She will have followup in 1 day and will need to consider Urology refe rral urgently if her pain does not improve as she might need intervention. Patient grew E. coli from her urine. She was treated with cefepime and she never became febrile or t achycardic. She did have a UA that was clean at the time of discharge. She will be treated with Kef miguel for 12 days, followed by prophylactic Keflex 500 mg nightly. DISCHARGE DISPOSITION: Home. CONDITION: Good. FOLLOWUP: In 1 day at the OB clinic. MEDICATIONS: Keflex. TD: 10/16/2019 08:53
== END 2019-10-14 13:45 | disposition home or self-care (01) | DRG 832 ==
LOC: WFO 15:44 → FBP 15:46 → WFO 18:45 → FBP 18:45 → OBSVTOIN 10-12 11:50
PROVIDERS: ADMIT Obstetrics & Gynecology; ATTEND Obstetrics & Gynecology
DX: O23.03 Infections of kidney in pregnancy, third trimester (principal); O26.833 Pregnancy related renal disease, third trimester; N20.0 Calculus of kidney; O26.53 Maternal hypotension syndrome, third trimester; O26.893 Other specified pregnancy related conditions, third trimester; R11.0 Nausea; O99.843 Bariatric surgery status complicating pregnancy, third trimester; O09.523 Supervision of elderly multigravida, third trimester; O99.343 Other mental disorders complicating pregnancy, third trimester; F32.9 Major depressive disorder, single episode, unspecified; F41.9 Anxiety disorder, unspecified; B96.20 Unspecified Escherichia coli [E. coli] as the cause of diseases classified elsewhere; Z3A.32 32 weeks gestation of pregnancy; Z87.891 Personal history of nicotine dependence
CPT/HCPCS: 76770; 81001; 87086; 87181; 96361; 96365; 96367; 96368; 96375; 96376; 99214; A9270; J7120; 81003

== ENCOUNTER 2019-10-29 11:04 | Outpatient (CLI) | payer MEDICAID ==
[2019-10-29 21:58] LABS: TRICHOMONAS VAGINALIS DNA NEGATIVE (NEGATIVE)
== END 2019-10-29 23:59 | disposition home or self-care (01) ==
LOC: LAB.R 11:04
PROVIDERS: ATTEND Obstetrics & Gynecology
DX: Z36.85 Encounter for antenatal screening for Streptococcus B (principal); Z11.3 Encounter for screening for infections with a predominantly sexual mode of transmission
CPT/HCPCS: 87491; 87591; 87661; 87797

== ENCOUNTER 2019-11-08 19:39 | Outpatient (CLI) | payer MEDICAID ==
--- NOTE | 2019-11-09 07:50 | Ultrasound Report ---
PROCEDURE: OB F/U or Repeat INDICATIONS: ENCOUNTER FOR SCREENING FOR MACROS OUTSIDE/PRIOR DATING DATA: Last menstrual period (LMP): 02.17.19. LMP-based estimated date of delivery (TAHIR): 11.24.19. First dating scan (date and location): 04.17.19. Estimated date of delivery (TAHIR) from first dating scan: 11.24.19. TECHNIQUE: Real-time scanning was performed of the fetus, with image documentation and biometric measurements. Endovaginal scanning: No COMPARISON: None. FINDINGS: General: A single living intrauterine gestation is present. Presentation: Cephalic Placenta: Placental position is posterior, without previa. Amniotic fluid index: 16.8 cm, 70th percentile for gestational age. heart rate: 149 beats per minute. Maternal cervical canal: 1.52 cm long; normal length is 2.5 cm or more. biometrics: Biparietal diameter: 95 mm; 38 weeks 6 days Head circumference: 342 mm; 39 weeks 3 days Abdominal circumference: 361 mm; 40 weeks 0 days Femur length: 75 mm; 38 weeks 5 days Estimated gestational age from initial scan: 37 weeks 5 days Composite gestational age from present scan: 39 weeks 2 days Estimated weight and percentile: 3814 g, 94th percentile for gestational age Measurement variability in biometric dating: +/- 10 days from 12-20 weeks gestation, +/- 2 weeks from 20-30 weeks gestation, +/- 3 weeks at 30 weeks gestation or more. Other: Not applicable. IMPRESSION: 1. Single living intrauterine gestation. 2. Estimated weight is at the 94th percentile for gestational age. Reviewed by: Nita Acevedo MD on 11/08/2019 9:52 PM PDT Approved by: Nita Acevedo MD on 11/08/2019 9:52 PM PDT Station ID: [id number]
--- NOTE | 2019-11-11 17:47 | Labor Flowsheet ---
Labor Flowsheet Datetime Report Generated by CPN: 11/11/2019 17:47 Datetime: 11/11/2019 17:43 VITAL SIGNS NBP Sys/[place]/Mean (mmHg): 150 : 80 : 103 Pulse: 72 Datetime: 10/11/2019 21:38 SpO2 (%): 99
== END 2019-11-08 19:40 | disposition home or self-care (01) ==
LOC: DI 19:39 → FBP 20:45 → DI 20:45
PROVIDERS: ATTEND Obstetrics & Gynecology
DX: Z36.88 Encounter for antenatal screening for fetal macrosomia (principal)
CPT/HCPCS: 76816

== ENCOUNTER 2019-11-13 13:15 | Outpatient (CLI) | payer MEDICAID ==
[2019-11-13 13:28] LABS: HGB - HEMOGLOBIN 10.9 g/dL (12.0-16.0); MEAN CORPUSCULAR HEMOGLOBIN 28.8 pg (27.0-31.0); MEAN CORPUSCULAR HGB CONC 31.9 g/dL (32.0-36.0); MEAN CORPUSCULAR VOLUME 90.5 fL (81.0-99.0); MEAN PLATELET VOLUME 10.4 fL (7.9-10.8); RED BLOOD COUNT 3.78 10^6/uL (4.20-5.40); RED CELL DISTRIBUTION WIDTH 18.7 % (12.0-15.0); WHITE BLOOD COUNT 6.5 x10^3/uL (4.8-10.8)
[2019-11-13 13:30] LABS: VBG PH 7.403 (7.31-7.41)
[2019-11-13 13:54] LABS: ALBUMIN 2.3 g/dL (3.2-5.5); ALBUMIN/GLOBULIN RATIO 0.6 (1.0-2.2); BILIRUBIN,TOTAL 0.5 mg/dL (0.2-1.0); CALCIUM 8.4 mg/dL (8.5-10.3); CREATININE 0.5 mg/dL (0.4-1.0); TOTAL PROTEIN 6.1 g/dL (6.7-8.2)
[2019-11-13 14:07] LABS: FERRITIN 5.2 ng/mL (11.0-306.8)
== END 2019-11-13 13:16 | disposition home or self-care (01) ==
LOC: LAB 13:15
PROVIDERS: ATTEND Obstetrics & Gynecology
DX: O09.90 Supervision of high risk pregnancy, unspecified, unspecified trimester (principal); Z98.84 Bariatric surgery status
CPT/HCPCS: 36415; 80053; 82306; 82330; 82607; 82728; 83540; 84466; 85027

== ENCOUNTER 2019-11-18 11:21 | Inpatient (IN) | payer MEDICAID ==
[2019-11-18] MEDS ORDERED: miSOPROStoL 200 MCG TABLET BC PRN (12:13)
[2019-11-18] MEDS ORDERED: SODIUM CHLORIDE FLUSH 0.9% 10 ML SYRINGE IVP PRN (12:13)
[2019-11-18] MEDS ORDERED: LIDOCAINE-MPF 1% 30 ML VIAL ID PRN (12:13)
[2019-11-18] MEDS ORDERED: CARBOPROST TROMETHAMINE 250 MCG/ML AMP IM PRN (12:13)
[2019-11-18] MEDS ORDERED: OXYTOCIN 10 UNIT/ML VIAL IM PRN (12:13)
[2019-11-18] MEDS ORDERED: METHYLERGONOVINE 0.2 MG/ML VIAL IM PRN (12:13)
[2019-11-18] MEDS ORDERED: TRANEXAMIC ACID 1,000 MG in SODIUM CHLORIDE 0.9% 100ML 100 ML IV PRN (12:13)
[2019-11-18] MEDS ORDERED: ONDANSETRON 4 MG/2 ML VIAL IVP PRN (12:13)
[2019-11-18] MEDS ORDERED: OXYTOCIN/SODIUM CHLORIDE 500 ML IV PRN (12:13)
[2019-11-18] MEDS ORDERED: LACTATED RINGERS 1,000 ML IV SCH (13:00)
[2019-11-18 13:54] LABS: BASOPHILS % (AUTO) 0.1 %; EOSINOPHILS # (AUTO) 0.1 10^3/uL (0.0-0.7); EOSINOPHILS % (AUTO) 0.8 %; HGB - HEMOGLOBIN 10.5 g/dL (12.0-16.0); LYMPHOCYTES # (AUTO) 1.2 10^3/uL (1.5-3.5); LYMPHOCYTES % (AUTO) 16.5 %; MEAN CORPUSCULAR HEMOGLOBIN 28.2 pg (27.0-31.0); MEAN CORPUSCULAR HGB CONC 31.7 g/dL (32.0-36.0); MEAN CORPUSCULAR VOLUME 88.7 fL (81.0-99.0); MEAN PLATELET VOLUME 10.2 fL (7.9-10.8); MONOCYTES # (AUTO) 0.5 10^3/uL (0.0-1.0); MONOCYTES % (AUTO) 6.6 %; NEUTROPHILS # (AUTO) 5.4 10^3/uL (1.5-6.6); NEUTROPHILS % (AUTO) 75.3 %; PLT - PLATELET COUNT 175 10^3/uL (130-450); RED BLOOD COUNT 3.73 10^6/uL (4.20-5.40); RED CELL DISTRIBUTION WIDTH 18.2 % (12.0-15.0); WHITE BLOOD COUNT 7.2 x10^3/uL (4.8-10.8)
[2019-11-18 13:57] LABS: BILIRUBIN,URINE NEGATIVE (NEGATIVE); GLUCOSE, URINE (UA) NEGATIVE (NEGATIVE); KETONES,URINE (UA) NEGATIVE (NEGATIVE); LEUKOCYTE ESTERASE, URINE NEGATIVE (NEGATIVE); NITRITE,URINE NEGATIVE (NEGATIVE); OCCULT BLOOD,URINE NEGATIVE (NEGATIVE); PROTEIN,URINE NEGATIVE (NEGATIVE); UROBILINOGEN,URINE 0.2 (NORMAL) E.U./dL (NORMAL)
[2019-11-18 14:01] LABS: CLARITY,URINE CLEAR (CLEAR)
[2019-11-18 14:04] LABS: CREATININE,URINE 40.6 mg/dL; PROTEIN/CREATININE RATIO,URINE 0.1 (<=0.2)
--- NOTE | 2019-11-18 14:47 | HISTORY & PHYSICAL EXAMINATION ---
History of Present Illness - History of Present Illness HPI Comment/Other: CC: contractions and loss of mucous plug HPI: a few hours before admit started having UC q7-10. Hx of rapid and lives in [place] so came in. No VB but did lose mucous plug. No LOF. Good FM ROS: no fevers. Feeling OK. PMH: -Hx of gastric bypass -Chronic thrombycytopenia --Asthma, mild, inhaler use monthly --HSV without recent outbreak --GERD --Iron def anemia requiring IV iron traqnsfusions while --Nephrolithiasis --Hx of pyelonephritis --Chronic anxiety PSH: gastric bypass Allergy: told not to take ibuprofen due to bypass Meds: PNV, daily keflex prophylaxis, ASA 81mg, buspar and vistaril PRN anxiety, zoloft 25mg, tylenol PRN SH: thc use. Otherwise neg. OB: TAHIR 12/01 by 7w US off 8d from LMP. Macrosomia, sub chorionikc hemorrhage O: AVSS, alert, smiling, NAD. Abd soft,nt/nd. EFW 8.75# elena. 4cm and vertex with RN. Category 1 NST. [place] q10. A/P: 34yo at 38w0d by 7w US off 8d from LMP with spontaneous labor--not ana frequently but has changed her cervix from 1cm in clinic to 4cm here. Just dilated further to 5cm. Admit for labor, augment PRN due to her ad vanced cervical dilation and history of rapid deliveries. Fetus: LGA, EFW 8.75# by elena c/w US last week. Vertex, normal anatomy, no genetic screening on record. Thrombocytopenia hx: normal now Iron def anemia: ferritin is low, consider IV Fe postparum patient is unable to boost levels with po intake. Hct 33. Normal hemoglobinopathy screen. Mild asthma: avoid hemabate PP: rh+, RI, s/p Tdap. Watch mood with anxiety hx. B12 low this month, will give IM replacemnt PP History - Past Medical History Cardiovascular: reports: None Respiratory: reports: None Neuro: reports: None Endocrine/Autoimmune: reports: None GI: reports: None STABLE MANAGER: reports: None : reports: None HEENT: reports: None Psych: reports: None Musculoskeletal: reports: None Derm: reports: None - Past Surgical History General: reports: Gastric surgery - POLST Patient has POLST: No Meds/Allgy - Home Medications Home Medications: Ambulatory Orders Medication Instructions Recorded Confirmed Cyclobenzaprine [Flexeril] 10 mg PO DAILY 06/28/18 06/28/18 hydrOXYzine HCL [Hydroxyzine HCl] 10 mg PO DAILY 06/28/18 06/28/18 traZODone [Desyrel] 50 mg PO Q6H PRN 06/28/18 06/28/18 Hydrocodone/Acetaminophen 1 - 2 each PO Q6H PRN #14 tablet 07/16/18 [Hydrocodon-Acetaminophen 5-325] - Allergies Allergies/Adverse Reactions: Allergies Allergy/AdvReac Type Severity Reaction Status Date / Time ibuprofen AdvReac Nausea Verified 07/22/19 15:19 Exam - Vital Signs Vital Signs: Vital Signs x48h Temp Pulse Resp BP Pulse Ox 11/18/19 13:50 99.0 F 11/18/19 11:32 99.0 F 86 20 118/78 100 Conclusion/Plan - Lab Results Fish Bones: 11/18/19 13:19
[2019-11-18 16:40] LABS: ALBUMIN 2.3 g/dL (3.2-5.5); ALBUMIN/GLOBULIN RATIO 0.7 (1.0-2.2); BILIRUBIN,TOTAL 0.6 mg/dL (0.2-1.0); CALCIUM 8.5 mg/dL (8.5-10.3); CREATININE 0.6 mg/dL (0.4-1.0); TOTAL PROTEIN 5.8 g/dL (6.7-8.2)
[2019-11-18] MEDS ORDERED: SODIUM CHLORIDE FLUSH 0.9% 10 ML SYRINGE IVP SCH (17:00)
--- NOTE | 2019-11-18 18:07 | PROVIDER PROGRESS NOTE ---
Subjective - Subjective Subjective: More painful UC now q5min AVSS Cat 1 NST [place] not picking up well SVE 5-6/80/-2. AROM clear with verbal consent. Anticipate . Objective - Vital Signs/Intake & Output Vital Signs: Vital Signs x48h Temp Pulse Resp BP Pulse Ox 11/18/19 16:01 98.1 F 92 20 109/75 99 11/18/19 13:50 99.0 F 11/18/19 11:32 99.0 F 86 20 118/78 100 - Lab Results Fish Bones: 11/18/19 13:19 11/18/19 13:19 Other Labs: Lab Results x24hrs 11/18/19 11/18/19 11/18/19 Range/Units 13:19 13:19 13:19 WBC (4.8-10.8) x10^3/uL RBC (4.20-5.40) 10^6/uL Hgb (12.0-16.0) g/dL Hct (37.0-47.0) % MCV (81.0-99.0) fL MCH (27.0-31.0) pg MCHC (32.0-36.0) g/dL RDW (12.0-15.0) % Plt Count (130-450) 10^3/uL MPV (7.9-10.8) fL Neut # (Auto) (1.5-6.6) 10^3/uL Lymph # (Auto) (1.5-3.5) 10^3/uL [place] # (Auto) (0.0-1.0) 10^3/uL Eos # (Auto) (0.0-0.7) 10^3/uL Baso # (Auto) (0.0-0.1) 10^3/uL Absolute Nucleated RBC x10^3/uL Nucleated RBC % /100WBC Sodium 132 L (135-145) mmol/L Potassium 3.4 L (3.5-5.0) mmol/L Chloride 101 (101-111) mmol/L Carbon Dioxide 23 (21-32) mmol/L Anion Gap 8.0 (6-13) BUN 8 (6-20) mg/dL Creatinine 0.6 (0.4-1.0) mg/dL Estimated GFR (MDRD) 113 (>89) Glucose 105 H (70-100) mg/dL Calcium 8.5 (8.5-10.3) mg/dL Ferritin 4.6 L (11.0-306.8) ng/mL Total Bilirubin 0.6 (0.2-1.0) mg/dL AST 23 (10-42) IU/L ALT 11 (10-60) IU/L Alkaline Phosphatase 106 (42-121) IU/L Total Protein 5.8 L (6.7-8.2) g/dL Albumin 2.3 L (3.2-5.5) g/dL Globulin 3.5 (2.1-4.2) g/dL Albumin/Globulin Ratio 0.7 L (1.0-2.2) Urine Color Urine Clarity (CLEAR) Urine pH (5.0-7.5) PH Ur Specific [place] (1.002-1.030) Urine Protein (NEGATIVE) mg/dL Urine Glucose (UA) (NEGATIVE) mg/dL Urine Ketones (NEGATIVE) mg/dL Urine Occult Blood (NEGATIVE) Urine Nitrite (NEGATIVE) Urine Bilirubin (NEGATIVE) Urine Urobilinogen (NORMAL) E.U./dL Ur Leukocyte Esterase (NEGATIVE) Ur Microscopic Review Urine Culture Comments Urine Creatinine 40.6 mg/dL Ur Total Protein Timed 6 mg/dL Protein/Creatinin Ratio 0.1 (<=0.2) Blood Type Antibody Screen 11/18/19 11/18/19 11/18/19 Range/Units 13:19 13:19 13:19 WBC 7.2 (4.8-10.8) x10^3/uL RBC 3.73 L (4.20-5.40) 10^6/uL Hgb 10.5 L (12.0-16.0) g/dL Hct 33.1 L (37.0-47.0) % MCV 88.7 (81.0-99.0) fL MCH 28.2 (27.0-31.0) pg MCHC 31.7 L (32.0-36.0) g/dL RDW 18.2 H (12.0-15.0) % Plt Count 175 (130-450) 10^3/uL MPV 10.2 (7.9-10.8) fL Neut # (Auto) 5.4 (1.5-6.6) 10^3/uL Lymph # (Auto) 1.2 L (1.5-3.5) 10^3/uL [place] # (Auto) 0.5 (0.0-1.0) 10^3/uL Eos # (Auto) 0.1 (0.0-0.7) 10^3/uL Baso # (Auto) 0.0 (0.0-0.1) 10^3/uL Absolute Nucleated RBC 0.00 x10^3/uL Nucleated RBC % 0.0 /100WBC Sodium (135-145) mmol/L Potassium (3.5-5.0) mmol/L Chloride (101-111) mmol/L Carbon Dioxide (21-32) mmol/L Anion Gap (6-13) BUN (6-20) mg/dL Creatinine (0.4-1.0) mg/dL Estimated GFR (MDRD) (>89) Glucose (70-100) mg/dL Calcium (8.5-10.3) mg/dL Ferritin (11.0-306.8) ng/mL Total Bilirubin (0.2-1.0) mg/dL AST (10-42) IU/L ALT (10-60) IU/L Alkaline Phosphatase (42-121) IU/L Total Protein (6.7-8.2) g/dL Albumin (3.2-5.5) g/dL Globulin (2.1-4.2) g/dL Albumin/Globulin Ratio (1.0-2.2) Urine Color YELLOW Urine Clarity CLEAR (CLEAR) Urine pH 7.0 (5.0-7.5) PH Ur Specific [place] 1.010 (1.002-1.030) Urine Protein NEGATIVE (NEGATIVE) mg/dL Urine Glucose (UA) NEGATIVE (NEGATIVE) mg/dL Urine Ketones NEGATIVE (NEGATIVE) mg/dL Urine Occult Blood NEGATIVE (NEGATIVE) Urine Nitrite NEGATIVE (NEGATIVE) Urine Bilirubin NEGATIVE (NEGATIVE) Urine Urobilinogen 0.2 (NORMAL) (NORMAL) E.U./dL Ur Leukocyte Esterase NEGATIVE (NEGATIVE) Ur Microscopic Review NOT INDICATED Urine Culture Comments NOT INDICATED Urine Creatinine mg/dL Ur Total Protein Timed mg/dL Protein/Creatinin Ratio (<=0.2) Blood Type O POSITIVE Antibody Screen NEGATIVE
[2019-11-18] MEDS: fentaNYL 100 MCG/2 ML VIAL IVP PRN ×2 (19:24→20:17)
[2019-11-18] MEDS ORDERED: NALOXONE 0.4 MG/ML VIAL ONE (20:29)
--- NOTE | 2019-11-18 20:56 | DELIVERY NOTE ---
Delivery Note - Labor Labor: positive: Augmented by ARM - Infant Delivery Method Infant Delivery Method: positive: Spontaneous vaginal delivery - Presentation Presentation: positive: Vertex - Nuchal Cord Nuchal Cord: positive: None - Anesthetic Anesthetic Type: - Amniotic Fluid Description Amniotic Fluid Description: positive: Clear - Episiotomy Type Episiotomy Type: positive: None - Laceration Laceration: positive: Periurethral (left, shallow, not requiring repair) - Delivery Outcome Delivery Outcome: positive: Livebirth - [place] : positive: Placed in direct skin contact with mother, Stimulated, Warmed, [place] used : Apgars 9/9 - Cord Cord: positive: 3 vessels - Placenta Placenta: positive: Intact, Spontaneous - Estimated Blood Loss Estimated Blood Loss (in cc): 200 - Post Delivery Events Post Delivery Events: positive: No post delivery events - Delivery Comments (Free Text/Narrative) Delivery Comments (Free Text/Narrative): Uncomplicated
[2019-11-18] MEDS ORDERED: SIMETHICONE CHEW 80 MG TABLET PO PRN (20:57)
[2019-11-18] MEDS ORDERED: WITCH HAZEL/GLYCERIN 1 PAD TOP PRN (20:57)
[2019-11-18] MEDS ORDERED: diphenhydrAMINE 25 MG CAPSULE PO PRN (20:57)
[2019-11-18] MEDS ORDERED: HYDROCORTISONE 1% CREAM 28 GM TUBE PR PRN (20:57)
[2019-11-18] MEDS ORDERED: ONDANSETRON ODT 4 MG TABLET TL PRN (20:57)
[2019-11-18] MEDS ORDERED: busPIRone 5 MG TABLET PO PRN (21:05)
[2019-11-18] MEDS ORDERED: hydrOXYzine PAMOATE 25 MG CAPSULE PO PRN (21:06)
[2019-11-18] MEDS: ACETAMINOPHEN 500 MG TABLET PO SCH (21:34)
[2019-11-18] MEDS ORDERED: fentaNYL 100 MCG/2 ML VIAL IVP ONE (22:00)
[2019-11-19] MEDS: oxyCODONE 5 MG TABLET PO PRN ×5 (01:22→18:22)
[2019-11-19] MEDS: ACETAMINOPHEN 500 MG TABLET PO SCH ×3 (05:11→21:46)
[2019-11-19] MEDS ORDERED: FERRIC GLUCONATE 125 MG in SODIUM CHLORIDE 0.9% 100ML 100 ML IV ONE (08:00)
[2019-11-19] MEDS ORDERED: CYANOCOBALAMIN 1,000 MCG/ML VIAL IM ONE (08:00)
[2019-11-19 08:02] LABS: BASOPHILS % (AUTO) 0.2 %; EOSINOPHILS # (AUTO) 0.1 10^3/uL (0.0-0.7); EOSINOPHILS % (AUTO) 0.6 %; HGB - HEMOGLOBIN 9.7 g/dL (12.0-16.0); LYMPHOCYTES # (AUTO) 1.3 10^3/uL (1.5-3.5); LYMPHOCYTES % (AUTO) 13.9 %; MEAN CORPUSCULAR HEMOGLOBIN 29.4 pg (27.0-31.0); MEAN CORPUSCULAR VOLUME 89.1 fL (81.0-99.0); MEAN PLATELET VOLUME 9.7 fL (7.9-10.8); MONOCYTES # (AUTO) 0.8 10^3/uL (0.0-1.0); MONOCYTES % (AUTO) 9.3 %; NEUTROPHILS # (AUTO) 6.8 10^3/uL (1.5-6.6); NEUTROPHILS % (AUTO) 75.3 %; PLT - PLATELET COUNT 151 10^3/uL (130-450); RED CELL DISTRIBUTION WIDTH 17.8 % (12.0-15.0); WHITE BLOOD COUNT 9.1 x10^3/uL (4.8-10.8)
[2019-11-19] MEDS: DOCUSATE SODIUM 100 MG CAPSULE PO SCH ×3 (09:20→21:47)
[2019-11-19] MEDS: SERTRALINE 50 MG TABLET PO SCH (09:20)
--- NOTE | 2019-11-19 09:42 | PROVIDER PROGRESS NOTE ---
Subjective - Subjective Subjective: Feeling great, better than usual. No problems with mood or bleeding. well. Urinate sometimes it feels fully voided, sometimes feels like a partial void and need to go again a few min later. O; AVSS Alert, smiling, NAD Abd soft, nt/nt Fundus firm, NT, 4cm above umbilicus US with PVR of 135cc, uterus is empty Hct 29 A/P: PPD # 1 s/p at term, hx of anxiety and gastric bypass with iron and B12 deficiencies resulting. Unable to maintain Fe levels with po iron due to poor absorption. Ferritin low, and Hct 29, IV iron transfusion now. Low B12 replace now. Anxiety stable continue zoloft and PRN buspar. Patient has an abnormal fundal height but her uterus is empty and her PVR is reasonable. No significant bleeding. Pt counseled to notify us PRN sensation of incomplete void. Likely a normal anatomic variant for her. Anticipate otherwise routine course. Objective - Vital Signs/Intake & Output Vital Signs: Vital Signs x48h Temp Pulse Resp BP Pulse Ox 11/19/19 08:45 98.2 F 83 18 116/72 98 11/19/19 04:16 97.7 F 93 18 117/81 H 100 Intake & Output: Intake & Output 11/16/19 11/17/19 11/18/19 11/19/19 23:59 23:59 23:59 23:59 Intake Total 400 100 Output Total 50 300 Balance 350 -200 - Lab Results Fish Bones: 11/19/19 07:56 11/18/19 13:19 Other Labs: Lab Results x24hrs 11/19/19 11/18/19 11/18/19 Range/Units 07:56 13:19 13:19 WBC 9.1 (4.8-10.8) x10^3/uL RBC 3.30 L (4.20-5.40) 10^6/uL Hgb 9.7 L (12.0-16.0) g/dL Hct 29.4 L (37.0-47.0) % MCV 89.1 (81.0-99.0) fL MCH 29.4 (27.0-31.0) pg MCHC 33.0 (32.0-36.0) g/dL RDW 17.8 H (12.0-15.0) % Plt Count 151 (130-450) 10^3/uL MPV 9.7 (7.9-10.8) fL Neut # (Auto) 6.8 H (1.5-6.6) 10^3/uL Lymph # (Auto) 1.3 L (1.5-3.5) 10^3/uL [place] # (Auto) 0.8 (0.0-1.0) 10^3/uL Eos # (Auto) 0.1 (0.0-0.7) 10^3/uL Baso # (Auto) 0.0 (0.0-0.1) 10^3/uL Absolute Nucleated RBC 0.00 x10^3/uL Nucleated RBC % 0.0 /100WBC Sodium 132 L (135-145) mmol/L Potassium 3.4 L (3.5-5.0) mmol/L Chloride 101 (101-111) mmol/L Carbon Dioxide 23 (21-32) mmol/L Anion Gap 8.0 (6-13) BUN 8 (6-20) mg/dL Creatinine 0.6 (0.4-1.0) mg/dL Estimated GFR (MDRD) 113 (>89) Glucose 105 H (70-100) mg/dL Calcium 8.5 (8.5-10.3) mg/dL Ferritin 4.6 L (11.0-306.8) ng/mL Total Bilirubin 0.6 (0.2-1.0) mg/dL AST 23 (10-42) IU/L ALT 11 (10-60) IU/L Alkaline Phosphatase 106 (42-121) IU/L Total Protein 5.8 L (6.7-8.2) g/dL Albumin 2.3 L (3.2-5.5) g/dL Globulin 3.5 (2.1-4.2) g/dL Albumin/Globulin Ratio 0.7 L (1.0-2.2) Urine Color Urine Clarity (CLEAR) Urine pH (5.0-7.5) PH Ur Specific Shields (1.002-1.030) Urine Protein (NEGATIVE) mg/dL Urine Glucose (UA) (NEGATIVE) mg/dL Urine Ketones (NEGATIVE) mg/dL Urine Occult Blood (NEGATIVE) Urine Nitrite (NEGATIVE) Urine Bilirubin (NEGATIVE) Urine Urobilinogen (NORMAL) E.U./dL Ur Leukocyte Esterase (NEGATIVE) Ur Microscopic Review Urine Culture Comments Urine Creatinine mg/dL Ur Total Protein Timed mg/dL Protein/Creatinin Ratio (<=0.2) Blood Type Antibody Screen 11/18/19 11/18/19 11/18/19 Range/Units 13:19 13:19 13:19 WBC 7.2 (4.8-10.8) x10^3/uL RBC 3.73 L (4.20-5.40) 10^6/uL Hgb 10.5 L (12.0-16.0) g/dL Hct 33.1 L (37.0-47.0) % MCV 88.7 (81.0-99.0) fL MCH 28.2 (27.0-31.0) pg MCHC 31.7 L (32.0-36.0) g/dL RDW 18.2 H (12.0-15.0) % Plt Count 175 (130-450) 10^3/uL MPV 10.2 (7.9-10.8) fL Neut # (Auto) 5.4 (1.5-6.6) 10^3/uL Lymph # (Auto) 1.2 L (1.5-3.5) 10^3/uL [place] # (Auto) 0.5 (0.0-1.0) 10^3/uL Eos # (Auto) 0.1 (0.0-0.7) 10^3/uL Baso # (Auto) 0.0 (0.0-0.1) 10^3/uL Absolute Nucleated RBC 0.00 x10^3/uL Nucleated RBC % 0.0 /100WBC Sodium (135-145) mmol/L Potassium (3.5-5.0) mmol/L Chloride (101-111) mmol/L Carbon Dioxide (21-32) mmol/L Anion Gap (6-13) BUN (6-20) mg/dL Creatinine (0.4-1.0) mg/dL Estimated GFR (MDRD) (>89) Glucose (70-100) mg/dL Calcium (8.5-10.3) mg/dL Ferritin (11.0-306.8) ng/mL Total Bilirubin (0.2-1.0) mg/dL AST (10-42) IU/L ALT (10-60) IU/L Alkaline Phosphatase (42-121) IU/L Total Protein (6.7-8.2) g/dL Albumin (3.2-5.5) g/dL Globulin (2.1-4.2) g/dL Albumin/Globulin Ratio (1.0-2.2) Urine Color YELLOW Urine Clarity CLEAR (CLEAR) Urine pH 7.0 (5.0-7.5) PH Ur Specific Shields 1.010 (1.002-1.030) Urine Protein NEGATIVE (NEGATIVE) mg/dL Urine Glucose (UA) NEGATIVE (NEGATIVE) mg/dL Urine Ketones NEGATIVE (NEGATIVE) mg/dL Urine Occult Blood NEGATIVE (NEGATIVE) Urine Nitrite NEGATIVE (NEGATIVE) Urine Bilirubin NEGATIVE (NEGATIVE) Urine Urobilinogen 0.2 (NORMAL) (NORMAL) E.U./dL Ur Leukocyte Esterase NEGATIVE (NEGATIVE) Ur Microscopic Review NOT INDICATED Urine Culture Comments NOT INDICATED Urine Creatinine 40.6 mg/dL Ur Total Protein Timed 6 mg/dL Protein/Creatinin Ratio 0.1 (<=0.2) Blood Type Antibody Screen 11/18/19 Range/Units 13:19 WBC (4.8-10.8) x10^3/uL RBC (4.20-5.40) 10^6/uL Hgb (12.0-16.0) g/dL Hct (37.0-47.0) % MCV (81.0-99.0) fL MCH (27.0-31.0) pg MCHC (32.0-36.0) g/dL RDW (12.0-15.0) % Plt Count (130-450) 10^3/uL MPV (7.9-10.8) fL Neut # (Auto) (1.5-6.6) 10^3/uL Lymph # (Auto) (1.5-3.5) 10^3/uL [place] # (Auto) (0.0-1.0) 10^3/uL Eos # (Auto) (0.0-0.7) 10^3/uL Baso # (Auto) (0.0-0.1) 10^3/uL Absolute Nucleated RBC x10^3/uL Nucleated RBC % /100WBC Sodium (135-145) mmol/L Potassium (3.5-5.0) mmol/L Chloride (101-111) mmol/L Carbon Dioxide (21-32) mmol/L Anion Gap (6-13) BUN (6-20) mg/dL Creatinine (0.4-1.0) mg/dL Estimated GFR (MDRD) (>89) Glucose (70-100) mg/dL Calcium (8.5-10.3) mg/dL Ferritin (11.0-306.8) ng/mL Total Bilirubin (0.2-1.0) mg/dL AST (10-42) IU/L ALT (10-60) IU/L Alkaline Phosphatase (42-121) IU/L Total Protein (6.7-8.2) g/dL Albumin (3.2-5.5) g/dL Globulin (2.1-4.2) g/dL Albumin/Globulin Ratio (1.0-2.2) Urine Color Urine Clarity (CLEAR) Urine pH (5.0-7.5) PH Ur Specific Shields (1.002-1.030) Urine Protein (NEGATIVE) mg/dL Urine Glucose (UA) (NEGATIVE) mg/dL Urine Ketones (NEGATIVE) mg/dL Urine Occult Blood (NEGATIVE) Urine Nitrite (NEGATIVE) Urine Bilirubin (NEGATIVE) Urine Urobilinogen (NORMAL) E.U./dL Ur Leukocyte Esterase (NEGATIVE) Ur Microscopic Review Urine Culture Comments Urine Creatinine mg/dL Ur Total Protein Timed mg/dL Protein/Creatinin Ratio (<=0.2) Blood Type O POSITIVE Antibody Screen NEGATIVE
[2019-11-20 08:58] VITALS: BP 119/66
[2019-11-20] MEDS: SERTRALINE 50 MG TABLET PO SCH (08:59)
[2019-11-20] MEDS: DOCUSATE SODIUM 100 MG CAPSULE PO SCH (08:59)
[2019-11-20] MEDS: ACETAMINOPHEN 500 MG TABLET PO SCH (08:59)
[2019-11-20] MEDS: oxyCODONE 5 MG TABLET PO PRN ×2 (09:24→13:51)
--- NOTE | 2019-11-20 12:24 | Discharge Plan ---
Discharge Plan Problem Reviewed?: Yes Disposition: Home, Self Care Condition: Good Activity Restrictions: No Restrictions (except for pelvic rest for 6 weeks) Shower Restrictions: No Driving Restrictions: No No Smoking: If you smoke, Please STOP! Call for help. Follow-up with: Abdirizak Francis MD [Provider Admit Priv/Credential] - 2 Weeks
--- NOTE | 2019-11-20 14:43 | Labor Flowsheet ---
Labor Flowsheet Datetime Report Generated by CPN: 11/20/2019 14:42 Datetime: 11/18/2019 22:50 VITAL SIGNS NBP Sys/[place]/Mean (mmHg): 116 : 52 : 68 Pulse: 71 SpO2 (%): 100 Datetime: 11/18/2019 21:00 Stage of : Respirations: 18 Temperature (C): 37.1 Temperature Route: Oral PAIN Pain Scale: 7 Pain Presence: Intermittent Pain Type: Cramping Datetime: 11/18/2019 20:55 LaborFlag: Labor Datetime: 11/18/2019 20:30 UTERINE ACTIVITY Monitor Mode: External Monitor Interventions for UA: [place] Adjusted Frequency (min): 1.5-2 Quality: Strong Duration (sec): 35-70 Pattern: Normal: <= 5 Contractions in 10 Minutes Resting Tone (Palpate): Relaxed ASSESSMENT A Monitor Mode: Modeling Instructor Interventions for FHR: Ultrasound Adjusted FHR Baseline Rate : 140 FHR Baseline Changes: No Baseline Change Variability: Moderate 6-25 bpm Accelerations: 15X15 Decelerations: None Datetime: 11/18/2019 20:28 STAGE 2 Pushing Position: Pushing with Contractions Datetime: 11/18/2019 20:17 VAGINAL EXAM Dilatation (cm): 10.0 Datetime: 11/18/2019 20:07 Vaginal Exam Comments: some cervix left Datetime: 11/18/2019 20:00 Pain Location: Abdomen; Back Datetime: 11/18/2019 19:24 MEDICATIONS Analgesics/Sedatives: 50mcg Datetime: 11/18/2019 19:16 Exam by: Dr. Genesis Datetime: 11/18/2019 19:09 Pain Coping: Requesting Pain Medication or Epidural Pain Assessment Comments: requesting pain meds Comfort Measures: Breathing/Relaxation; Back Rub Given; Family Support Datetime: 11/18/2019 19:03 COMMUNICATION Communication: Report Given to @ H Mahala RN Datetime: 11/18/2019 19:00 Category: Category I Datetime: 11/18/2019 18:00 Contraction Comments: pt describes feeling ctx appx q5 minutes. poor quality tracing d/t maternal m ovement Datetime: 11/18/2019 17:58 Effacement (%): 80 Station: -2 Membrane Status: Ruptured Membranes Rupture Method: Artificial Amniotic Fluid Color: Clear Amniotic Fluid Amount: Moderate Amniotic Fluid Odor: Normal Datetime: 11/18/2019 17:30 Comments: RN @ bedside for US adjustments Datetime: 11/18/2019 17:28 I/O Interventions: Up to BR Datetime: 11/18/2019 16:46 Patient Care Comments: pt remains on birthing ball. Datetime: 11/18/2019 16:15 Cervix, Consistency: Soft Cervix, Position: Posterior Datetime: 11/18/2019 14:06 PATIENT CARE Patient Position/Activity: Birthing Ball
--- NOTE | 2019-11-20 15:50 | DISCHARGE SUMMARY ---
Physician: Tiana Hurtado MD DATE OF ADMISSION: 11/18/2019 DATE OF DISCHARGE: 11/20/2019 ADMISSION DIAGNOSES 1. Spontaneous labor at term. 2. Iron deficiency anemia. 3. Vitamin B12 deficiency. DISCHARGE DIAGNOSES 1. Status post spontaneous vaginal delivery. 2. Iron deficiency anemia, treated. 3. Vitamin B12 deficiency, treated. OPERATIONS AND PROCEDURES: 11/18/2019, spontaneous vaginal delivery of a liveborn male, Apgars were 9 and 9. Her delivery was uncomplicated. HOSPITAL COURSE: The patient was admitted in spontaneous labor, and delivered unmedicated as describ ed above. She had required IV iron earlier in her . She has a history of p.o. iron malabso rption due to her history of gastric bypass. Her ferritin was low and so she was given a dose of IV iron. Her B12 has been similarly problematic. Her last level was low and so this was replaced after delivery as well. Her baby was pretty jittery, which is likely related to her sertraline combined w ith marijuana use. She was coping with this emotionally well. By day #2, she was ambulat ing, urinating, and without difficulty. She did not have any significant pain. Her bl eeding was normal. She is afebrile with normal vital signs, alert and smiling, in no apparent distre ss. Baby on the breast with a good latch. Abdomen is soft, nontender, and nondistended. Fundus fir m and 3 cm above the umbilicus. No lower extremity clubbing, cyanosis or edema. The patient has had a fundal height that has been elevated since her delivery. Ultrasounds have revealed a normal postv oid residual and an empty uterus. This is likely just a normal anatomic variant for her. DISCHARGE DISPOSITION: Home. CONDITION: Good. FOLLOWUP: In 2 weeks at the OB clinic for a mood check. MEDICATIONS: Start Tylenol p.r.n. pain. TD: 11/20/2019 12:30
== END 2019-11-20 14:00 | disposition home or self-care (01) | DRG 806 ==
LOC: WFO 11:21 → FBP 11:23 → WFO 12:12 → FBP 12:13
PROVIDERS: ADMIT Obstetrics & Gynecology; ATTEND Obstetrics & Gynecology
PROC: 10E0XZZ Delivery of Products of Conception, External Approach (ICD-10-PCS; principal; 2019-11-18)
PROC: 10907ZC Drainage of Amniotic Fluid, Therapeutic from Products of Conception, Via Natural or Artificial Opening (ICD-10-PCS; 2019-11-18)
DX: O99.02 Anemia complicating childbirth (principal); O99.12 Other diseases of the blood and blood-forming organs and certain disorders involving the immune mechanism complicating childbirth; Z37.0 Single live birth; O98.52 Other viral diseases complicating childbirth; O99.324 Drug use complicating childbirth; D50.9 Iron deficiency anemia, unspecified; D51.9 Vitamin B12 deficiency anemia, unspecified; D69.6 Thrombocytopenia, unspecified; F12.90 Cannabis use, unspecified, uncomplicated; A60.00 Herpesviral infection of urogenital system, unspecified; O99.844 Bariatric surgery status complicating childbirth; O99.344 Other mental disorders complicating childbirth; F41.9 Anxiety disorder, unspecified; O71.82 Other specified trauma to perineum and vulva; O99.62 Diseases of the digestive system complicating childbirth; K21.9 Gastro-esophageal reflux disease without esophagitis; O99.52 Diseases of the respiratory system complicating childbirth; J45.909 Unspecified asthma, uncomplicated; Z3A.38 38 weeks gestation of pregnancy; Z87.442 Personal history of urinary calculi; Z87.440 Personal history of urinary (tract) infections; Z79.82 Long term (current) use of aspirin
CPT/HCPCS: 80053; 81003; 82570; 82728; 84156; 85025; 86850; 86900; 86901; 99213; A9270; J2916; J7120; 81001; 87086

== ENCOUNTER 2020-01-14 19:01 | Outpatient (CLI) | payer MEDICAID ==
--- NOTE | 2020-01-15 10:50 | Ultrasound Report ---
PROCEDURE: Pelvic w/Transvaginal INDICATIONS: ABN BLEEDING, CONCERNS FOR RETAINED PRO TECHNIQUE: Real-time scanning was performed of the pelvic organs, with image documentation. Additional endovagi nal scanning was necessary due to incomplete visualization of the adnexal and endometrial structures by transabdominal scanning. COMPARISON: None. FINDINGS: Transabdominal scanning: Limited scanning through the kidneys shows no hydronephrosis. No pathologi c free abdominal or pelvic fluid. Endovaginal scanning: Uterus: Uterus is normal in size at 5.6 x 7.8 x 9.9 cm. The endometrium measures 14 mm in combined thickness but at the upper endometrial margin echogenic masslike morphology of the endometrium raises concern for retained products of conception. This measures up to 1.5 x 2.3 x 1.7 cm.. Ovaries: The right ovary measures 2.3 x 2.3 x 2.7 cm and the left measures 1.6 x 1.8 x 2.5 cm. IMPRESSION: Presumed retained products of conception producing an echogenic ovoid masslike structure measuring up to 1.5 x 2.3 x 1.7 cm within the upper endometrium. Normal-appearing ovaries. Reviewed by: Jonathan Kulkarni MD on 01/15/2020 10:49 AM PDT Approved by: Jonathan Kulkarni MD on 01/15/2020 10:49 AM PDT Station ID: [id number]
== END 2020-01-14 19:02 | disposition home or self-care (01) ==
LOC: DI 19:01
PROVIDERS: ATTEND Nurse Practitioner Obstetrics & Gynecology
DX: O90.89 Other complications of the puerperium, not elsewhere classified (principal)
CPT/HCPCS: 76830; 76856

== ENCOUNTER 2020-01-17 14:59 | Outpatient (CLI) | payer MEDICAID ==
[2020-01-17 15:33] LABS: BASOPHILS % (AUTO) 0.7 %; HGB - HEMOGLOBIN 12.8 g/dL (12.0-16.0); LYMPHOCYTES # (AUTO) 1.4 10^3/uL (1.5-3.5); LYMPHOCYTES % (AUTO) 33.4 %; MEAN CORPUSCULAR HEMOGLOBIN 28.3 pg (27.0-31.0); MEAN CORPUSCULAR VOLUME 88.5 fL (81.0-99.0); MEAN PLATELET VOLUME 9.5 fL (7.9-10.8); MONOCYTES # (AUTO) 0.4 10^3/uL (0.0-1.0); MONOCYTES % (AUTO) 9.5 %; NEUTROPHILS # (AUTO) 2.3 10^3/uL (1.5-6.6); NEUTROPHILS % (AUTO) 55.2 %; PLT - PLATELET COUNT 192 10^3/uL (130-450); RED BLOOD COUNT 4.52 10^6/uL (4.20-5.40); RED CELL DISTRIBUTION WIDTH 15.5 % (12.0-15.0); WHITE BLOOD COUNT 4.2 x10^3/uL (4.8-10.8)
[2020-01-17 15:47] LABS: HCG,QUALITATIVE BLOOD NEGATIVE
== END 2020-01-17 15:00 | disposition home or self-care (01) ==
LOC: LAB 14:59
PROVIDERS: ATTEND Registered Nurse
DX: Z01.812 Encounter for preprocedural laboratory examination (principal); O73.1 Retained portions of placenta and membranes, without hemorrhage; Z20.828 Contact with and (suspected) exposure to other viral communicable diseases; Z3A.00 Weeks of gestation of pregnancy not specified
CPT/HCPCS: 36415; 84703; 85025

== ENCOUNTER 2020-01-22 13:08 | Day surgery (SDC) | payer MEDICAID ==
[~2020-01-22 13:08] MED LIST: ACETAMINOPHEN 1,000 MG/100 ML 100 ML IV ONE; CELECOXIB 100 MG CAPSULE PO ONE; GABAPENTIN 400 MG CAPSULE ONE
[2020-01-22] MEDS ORDERED: LACTATED RINGERS 1,000 ML IV ONE ×2 (13:48→16:19)
[2020-01-22] MEDS ORDERED: SCOPOLAMINE PATCH TOP ONE (14:17)
[2020-01-22] MEDS ORDERED: DOXYCYCLINE 100 MG TABLET PO ONE (14:18)
--- NOTE | 2020-01-22 14:20 | ANESTHESIA ---
Pre-Anesthesia VS, & Labs - Diagnosis retained products - Procedure suction D and C Height: 5 ft 7 in Weight (kg): 86 kg Body Mass Index: 29.7 BMI Classification: Overweight - NPO >8 hours - Is Patient ?: No - Lab Results Current Lab Results: Laboratory Tests 01/22/20 13:47: POC Whole Bld Glucose 82 Home Medications and Allergies Home Medications: Ambulatory Orders Omeprazole 40 mg PO DAILY 01/22/20 Sertraline [Zoloft] 25 mg PO DAILY 01/22/20 busPIRone [Buspar] 5 mg PO DAILY 01/22/20 Cyclobenzaprine [Flexeril] 10 mg PO DAILY 06/28/18 traZODone [Desyrel] 50 mg PO Q6H PRN 06/28/18 Omeprazole 40 mg PO DAILY 01/22/20 Sertraline [Zoloft] 25 mg PO DAILY 01/22/20 busPIRone [Buspar] 5 mg PO DAILY 01/22/20 Allergies/Adverse Reactions: Allergies Allergy/AdvReac Type Severity Reaction Status Date / Time ibuprofen AdvReac Nausea Verified 07/22/19 15:19 Anes History & Medical History - Anesthetic History Anesthesia Complications: reports: No previous complications - Medical History Cardiovascular: reports: None Pulmonary: reports: None Gastrointestinal: reports: GERD Urinary: reports: Kidney stones Neuro: reports: None Musculoskeletal: reports: None Endocrine/Autoimmune: reports: None Blood Disorders: reports: None Skin: reports: None Smoking Status: Former smoker - Surgical History General: Gastric surgery, Other Eyes Ears Nose Throat (EENT): Rhinoplasty Orthopedic: Other Exam General: Alert, Oriented x3 Dental: WNL Mouth Opening: Greater than 4 Fingerbreadths Neck Mobility: Normal Mallampati classification: I Thyromental Distance: greater than 6 cm Respiratory: Lungs clear Cardiovascular: Regular rate Plan Anesthesia Type: MAC Consent for Procedure(s) Verified and Reviewed: Yes Code Status: Attempt Resuscitation ASA classification: 2-Mild systemic disease Is this case an emergency?: No
[2020-01-22] MEDS ORDERED: BUPIVACAINE 0.5% PF 30 ML VIAL ONE (14:21)
[2020-01-22] MEDS ORDERED: SILVER NITRATE APPLICATOR TOP ONE ×3 (14:22→16:16)
[2020-01-22] MEDS ORDERED: PROPOFOL 200 MG/20 ML VIAL IVP ONE (15:36)
[2020-01-22] MEDS ORDERED: ONDANSETRON 4 MG/2 ML VIAL IVP ONE (15:36)
[2020-01-22] MEDS ORDERED: DEXAMETHASONE 4 MG/ML VIAL IVP ONE (15:36)
[2020-01-22] MEDS ORDERED: fentaNYL 100 MCG/2 ML VIAL IVP ONE (15:36)
[2020-01-22] MEDS ORDERED: KETAMINE 500 MG/10 ML VIAL IVP ONE (15:36)
[2020-01-22] MEDS ORDERED: MIDAZOLAM 2 MG/2 ML VIAL IVP ONE (15:36)
[2020-01-22] MEDS ORDERED: LIDOCAINE-MPF 2% 5 ML VIAL IM ONE (15:36)
[2020-01-22] MEDS ORDERED: ACETAMINOPHEN 1,000 MG/100 ML 100 ML IV ONE (15:36)
[2020-01-22] MEDS ORDERED: BUPIVACAINE 0.5% PF 30 ML VIAL SUBQ ONE ×2 (15:57)
--- NOTE | 2020-01-22 16:45 | OPERATIVE REPORT ---
Operative Report - General Procedure Date: 01/22/20 Planned Procedure: Suction D&C with possible hysteroscopy D&C Pre-Op Diagnosis: Retained products of conception Procedure Performed: Suction D&C Dilation and curettage Post Op Diagnosis: Same - Procedure Note Primary Surgeon: Cat Alicia MD Anesthesia Provider: Butch Hartley CRNA Anesthesia Technique: Local, MAC Pathology: uterine contents IV Fluids (mL): 500 (see Anesthesia record) Estimated Blood Loss (mL): 50 Indications: The patient is a 34-year-old , status post on 11/18/2019 here for subsequent retained products of conception. The patient was seen in clinic for 6 weeks on 12/24/2019 with DORINDA Wong. At that time, the patient reported consistent bleeding and cramping since time of delivery. She has also had issues where her breast milk has not come in. She has been followed closely by and supplementing with donor milk. Because of the persistent bleeding, her pelvic ultrasound was performed. There was a mass noted in the uterus possibly consistent with retained products of conception and measuring 2.3 cm in greatest dimension. The patient was counseled on medical management with Misoprostol versus proceedi ng directly with us suction D&C versus hysteroscopy D&C. She prefers definitive management with the surgical intervention. Findings: Passage of material consistent with retained products noted in suction tubing. Uterus slightly enlarged, mobile. Complications: None - Other Other Information/Narrative: Risks benefits and alternatives to the procedure were reviewed. Consent was again confirmed. Patient was taken to the operating room where she underwent general anesthesia. She was positioned in dorsolithotomy position with legs resting in yellowfin stirrups. She was prepped and draped in the usual sterile fashion. Preoperative antibiotics were not indicated. Preoperative checklist was performed. Exam under anesthesia was performed. Speculum was placed in the vagina and the cervix was visualized. Single-tooth tenaculum was placed at the anterior cervical lip. Paracervical block was administered using a total of 20 cc of 0.5% bupivicaine with epinephrine was injected at the 4:00 and 8:00 positions lateral to the portio of the cervix. The cervical os was serially dilated with Hegar dilators to accommodate the caliber of the 7 mm flexible suction catheter. The catheter was inserted and advanced to the fundus. The suction was then connected and the catheter was rotated as it was drawn out of the the uterine cavity. At no time was there forward motion of the catheter while suction was activated. Four passes with the catheter were completed. Tissue consistent with retained products were noted to have passed through the suction tubing. Suction catheter was removed. Sharp curettage D&C was performed with sharp curettage. All instruments were removed from the uterus. Tenaculum was removed. Tenaculum sites were noted to be hemostatic after application of silver nitrate. All instruments were removed from the vagina. Procedure was well-tolerated without complication.
--- NOTE | 2020-01-22 16:58 | ANESTHESIA POST OP EVALUATION ---
Anesthesia Post Eval - Post Anesthesia Eval Vitals: Last Vital Signs Temp 37 C 01/22/20 16:18 Pulse 59 L 01/22/20 16:44 Resp 10 L 01/22/20 16:44 BP 101/75 01/22/20 16:44 Pulse Ox 96 01/22/20 16:44 CV Function Including HR & BP: positive: Stable Pain Control: positive: Satisfactory Nausea & Vomiting: positive: Negative Mental Status: positive: Baseline Respiratory Status: Airway Patent Hydration Status: Satisfactory Anesthesia Complications: positive: None
[2020-01-22 17:17] VITALS: BP 103/64
== END 2020-01-22 13:09 | disposition home or self-care (01) ==
LOC: SDS 13:08
PROVIDERS: ATTEND Obstetrics & Gynecology
PROC: 10D17Z9 Manual Extraction of Products of Conception, Retained, Via Natural or Artificial Opening (ICD-10-PCS; principal; 2020-01-22 14:00)
DX: O72.2 Delayed and secondary postpartum hemorrhage (principal); J45.909 Unspecified asthma, uncomplicated; K21.9 Gastro-esophageal reflux disease without esophagitis; F41.1 Generalized anxiety disorder; A60.9 Anogenital herpesviral infection, unspecified; H91.90 Unspecified hearing loss, unspecified ear; Z87.891 Personal history of nicotine dependence; Z79.82 Long term (current) use of aspirin; Z79.51 Long term (current) use of inhaled steroids; Z79.899 Other long term (current) drug therapy
CPT/HCPCS: 59160; A9270; J0131; J3490; J7120

== ENCOUNTER 2021-04-19 14:17 | Outpatient (CLI) | payer MEDICAID ==
[2021-04-19 20:03] LABS: ABSOLUTE RETICS # AUTO 0.026 10^6/uL (0.020-0.110); BASOPHILS % (AUTO) 0.6 %; EOSINOPHILS # (AUTO) 0.1 10^3/uL (0.0-0.7); EOSINOPHILS % (AUTO) 1.4 %; HCT - HEMATOCRIT 34.1 % (37.0-47.0); HGB - HEMOGLOBIN 9.7 g/dL (12.0-16.0); LYMPHOCYTES # (AUTO) 1.2 10^3/uL (1.5-3.5); LYMPHOCYTES % (AUTO) 24.3 %; MEAN CORPUSCULAR HEMOGLOBIN 21.7 pg (27.0-31.0); MEAN CORPUSCULAR HGB CONC 28.4 g/dL (32.0-36.0); MEAN CORPUSCULAR VOLUME 76.5 fL (81.0-99.0); MEAN PLATELET VOLUME 10.9 fL (7.9-10.8); MONOCYTES # (AUTO) 0.3 10^3/uL (0.0-1.0); NEUTROPHILS # (AUTO) 3.3 10^3/uL (1.5-6.6); NEUTROPHILS % (AUTO) 66.5 %; PLT - PLATELET COUNT 166 10^3/uL (130-450); RED BLOOD COUNT 4.46 10^6/uL (4.20-5.40); RED CELL DISTRIBUTION WIDTH 17.2 % (12.0-15.0); RETICULOCYTE COUNT % (AUTO) 0.59 % (0.5-2.3); WHITE BLOOD COUNT 4.9 x10^3/uL (4.8-10.8)
[2021-04-19 20:39] LABS: FERRITIN 2.5 ng/mL (11.0-306.8)
[2021-04-19 20:43] LABS: FOLATE 7.06 ng/mL (5.90 - >24.8)
[2021-04-19 20:44] LABS: % IRON SATURATION 4 % (20-50); IRON 23 ug/dL (28-170); TOTAL IRON BINDING CAPACITY 595 ug/dL (250-450); TRANSFERRIN 425 mg/dL (192-382)
== END 2021-04-19 14:18 | disposition home or self-care (01) ==
LOC: LAB.S 14:17
PROVIDERS: ATTEND Registered Nurse
DX: D50.9 Iron deficiency anemia, unspecified (principal)
CPT/HCPCS: 36415; 82607; 82728; 82746; 83540; 84466; 85025; 85045

== ENCOUNTER 2021-04-22 16:52 | Emergency (ER) | payer MEDICAID ==
[2021-04-22 17:21] LABS: BASOPHILS % (AUTO) 0.4 %; EOSINOPHILS % (AUTO) 0.2 %; HCT - HEMATOCRIT 31.1 % (37.0-47.0); HGB - HEMOGLOBIN 9.1 g/dL (12.0-16.0); LYMPHOCYTES # (AUTO) 0.8 10^3/uL (1.5-3.5); LYMPHOCYTES % (AUTO) 18.4 %; MEAN CORPUSCULAR HEMOGLOBIN 21.6 pg (27.0-31.0); MEAN CORPUSCULAR HGB CONC 29.3 g/dL (32.0-36.0); MEAN CORPUSCULAR VOLUME 73.9 fL (81.0-99.0); MEAN PLATELET VOLUME 10.2 fL (7.9-10.8); MONOCYTES # (AUTO) 0.3 10^3/uL (0.0-1.0); MONOCYTES % (AUTO) 6.4 %; NEUTROPHILS # (AUTO) 3.4 10^3/uL (1.5-6.6); NEUTROPHILS % (AUTO) 74.4 %; PLT - PLATELET COUNT 195 10^3/uL (130-450); RED BLOOD COUNT 4.21 10^6/uL (4.20-5.40); RED CELL DISTRIBUTION WIDTH 17.2 % (12.0-15.0); WHITE BLOOD COUNT 4.5 x10^3/uL (4.8-10.8)
[2021-04-22 17:50] LABS: ALBUMIN 3.4 g/dL (3.2-5.5); BILIRUBIN,TOTAL 0.5 mg/dL (0.2-1.0); CALCIUM 8.7 mg/dL (8.5-10.3); CREATININE 0.6 mg/dL (0.4-1.0); POTASSIUM 3.7 mmol/L (3.5-5.0); TOTAL PROTEIN 6.7 g/dL (6.7-8.2)
[2021-04-22 18:46] VITALS: BP 120/60
--- NOTE | 2021-04-22 20:32 | ED Physician Documentation ---
History of Present Illness - Stated complaint Stated Complaint: FAINTING/SPOTTING - Chief complaint Chief Complaint: Abd Pain - History obtained from History obtained from: Patient - Additonal information Additional information: 35yF with chronic anemia attributed in the past to malabsorption from prior gastric bypass p/w two fainting episodes in past couple days. seen in clinic for first fall/fainting episode, but then fainted again today while in bed. endorses preceding nausea, lightheadedness, and tunnel vision, and quick recovery to baseline. no urinary/fecal incontinence or tongue biting. patient states she took several tests today and is . LMP Mar 3. notes she is having pink spotting the past two days, which she has had on every prior . . 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 : Kidney stones HEENT: Chronic vision loss, Other Psych: Anxiety, Panic attacks Musculoskeletal: None Derm: None - Past Surgical History Past Surgical History: Yes General: Gastric surgery, Other Ortho: Other HEENT: Rhinoplasty - Present Medications Home Medications: Ambulatory Orders Medication Instructions Recorded Confirmed Cyclobenzaprine [Flexeril] 10 mg PO DAILY 06/28/18 01/22/20 traZODone [Desyrel] 50 mg PO Q6H PRN 06/28/18 01/22/20 Acetaminophen [Tylenol] 650 mg PO Q6H PRN #60 tablet 01/22/20 Ibuprofen [Motrin] 600 mg PO Q6H PRN #30 tab 01/22/20 Omeprazole 40 mg PO DAILY 01/22/20 01/22/20 Sertraline [Zoloft] 25 mg PO DAILY 01/22/20 01/22/20 busPIRone [Buspar] 5 mg PO DAILY 01/22/20 01/22/20 oxyCODONE [Roxicodone] 5 mg PO Q4H PRN #12 tablet 01/22/20 Ferrous Sulfate 325 mg PO QDAC #30 tab 04/22/21 - Allergies Allergies/Adverse Reactions: Allergies Allergy/AdvReac Type Severity Reaction Status Date / Time ibuprofen AdvReac Nausea Verified 04/22/21 17:02 - Social History Does the pt smoke?: Yes Smoking Status: Current every day smoker Does the pt drink ETOH?: No Does the pt have substance abuse?: No - Immunizations Immunizations are current?: Yes - POLST Patient has POLST: No PD ED PE NORMAL - Vitals Vital signs reviewed: Yes - General General: Alert and oriented X 3, No acute distress, Well developed/nourished - HEENT HEENT: Atraumatic, PERRL, EOMI - Neck Neck: Supple, no meningeal sign - Cardiac Cardiac: RRR - Respiratory Respiratory: No respiratory distress, Clear bilaterally - Abdomen Abdomen: Non tender, Non distended - Back Back: No CVA TTP - Derm Derm: Normal color, Warm and dry - Extremities Extremities: No deformity, No edema - Neuro Neuro: Alert and oriented X 3, No motor deficit, No sensory deficit - Psych Psych: Normal mood, Normal affect Results - Vitals Vitals: Oxygen O2 Source Room air - Labs Labs: Microbiology 04/22/21 21:46 Occult Blood - Final Stool Laboratory Tests 04/22/21 04/22/21 04/22/21 17:15 17:15 17:15 WBC 4.5 L RBC 4.21 Hgb 9.1 L Hct 31.1 L MCV 73.9 L MCH 21.6 L MCHC 29.3 L RDW 17.2 H Plt Count 195 MPV 10.2 Neut # (Auto) 3.4 Lymph # (Auto) 0.8 L [place] # (Auto) 0.3 Eos # (Auto) 0.0 Baso # (Auto) 0.0 Absolute Nucleated RBC 0.00 Nucleated RBC % 0.0 Sodium 134 L Potassium 3.7 Chloride 99 L Carbon Dioxide 25 Anion Gap 10.0 BUN 11 Creatinine 0.6 Estimated GFR (MDRD) 112 Glucose 91 Calcium 8.7 Total Bilirubin 0.5 AST 25 ALT 18 Alkaline Phosphatase 70 Total Protein 6.7 Albumin 3.4 Globulin 3.3 Albumin/Globulin Ratio 1.0 Lipase 34 HCG, Quant 127.69 PD MEDICAL DECISION MAKING - ED course ED course: d/w Dr. Alicia regarding patient anemia. she is asymptomatic, with normal vitals and exam in the ED. We agreed to hold off on transfusion for now but to have repeat hcg in 3 days which will be follow up by Dr. Alicia/[facility]. lab request form completed in the ED. Will give rx for iron. Advised pelvic rest. strict return precautions discussed. Departure - Departure Disposition: 01 Home, Self Care Clinical Impression: Anemia, Syncope, Early stage of Condition: Stable Instructions: Anemia Prescriptions: Ferrous Sulfate 325 mg PO QDAC #30 tab Comments: You were seen in the ED for evaluation of fainting episode and found to have anemia with hemoglobin of 9.1 today. I spoke with Dr. Alicia who would like you to come in for repeat bloodwork (hcg) in 3 days. Please return to the ED if you have worsening dizziness, if you pass out again, if your vaginal spotting turns heavier, or if you have other concerns. Your prescription for iron pills was sent electronically to [facility] which is listed as your usual pharmacy in our system. Discharge Date/Time: 04/22/21 21:02
== END 2021-04-22 21:02 | disposition home or self-care (01) ==
LOC: ED 16:52
DX: O99.011 Anemia complicating pregnancy, first trimester (principal); O99.331 Smoking (tobacco) complicating pregnancy, first trimester; F17.200 Nicotine dependence, unspecified, uncomplicated; Z3A.00 Weeks of gestation of pregnancy not specified; D64.9 Anemia, unspecified
CPT/HCPCS: 36415; 80053; 81025; 82272; 82274; 83690; 84702; 85025; 86850; 86900; 86901; 99283

== ENCOUNTER 2021-04-24 12:15 | Outpatient (CLI) | payer MEDICAID | END 2021-04-24 12:16 | disposition home or self-care (01) | LOC: LAB.S 12:15 | PROVIDERS: ATTEND Obstetrics & Gynecology | DX: Z32.01 Encounter for pregnancy test, result positive (principal) | CPT/HCPCS: 36415; 84702 ==

== ENCOUNTER 2021-04-26 11:48 | Outpatient (CLI) | payer MEDICAID | END 2021-04-26 11:49 | disposition home or self-care (01) | LOC: LAB.S 11:48 | PROVIDERS: ATTEND Obstetrics & Gynecology | DX: Z32.01 Encounter for pregnancy test, result positive (principal) | CPT/HCPCS: 36415; 84702 ==

== ENCOUNTER 2021-04-28 12:59 | Outpatient (CLI) | payer MEDICAID | END 2021-04-28 13:00 | disposition home or self-care (01) | LOC: LAB.S 12:59 | PROVIDERS: ATTEND Obstetrics & Gynecology | DX: Z32.01 Encounter for pregnancy test, result positive (principal) | CPT/HCPCS: 36415; 84702 ==

== ENCOUNTER 2021-04-30 15:50 | Outpatient (CLI) | payer MEDICAID ==
[2021-04-30 21:11] LABS: BASOPHILS % (AUTO) 0.5 %; EOSINOPHILS # (AUTO) 0.1 10^3/uL (0.0-0.7); EOSINOPHILS % (AUTO) 0.9 %; HCT - HEMATOCRIT 31.5 % (37.0-47.0); HGB - HEMOGLOBIN 9.1 g/dL (12.0-16.0); LYMPHOCYTES # (AUTO) 1.1 10^3/uL (1.5-3.5); LYMPHOCYTES % (AUTO) 20.4 %; MEAN CORPUSCULAR HEMOGLOBIN 21.8 pg (27.0-31.0); MEAN CORPUSCULAR HGB CONC 28.9 g/dL (32.0-36.0); MEAN CORPUSCULAR VOLUME 75.4 fL (81.0-99.0); MONOCYTES # (AUTO) 0.3 10^3/uL (0.0-1.0); MONOCYTES % (AUTO) 6.1 %; NEUTROPHILS % (AUTO) 71.9 %; PLT - PLATELET COUNT 254 10^3/uL (130-450); RED BLOOD COUNT 4.18 10^6/uL (4.20-5.40); RED CELL DISTRIBUTION WIDTH 17.2 % (12.0-15.0); WHITE BLOOD COUNT 5.5 x10^3/uL (4.8-10.8)
[2021-04-30 21:37] LABS: FERRITIN 2.4 ng/mL (11.0-306.8)
[2021-04-30 22:04] LABS: % IRON SATURATION 3 % (20-50); IRON 16 ug/dL (28-170); TOTAL IRON BINDING CAPACITY 561 ug/dL (250-450); TRANSFERRIN 401 mg/dL (192-382)
[2021-04-30 22:11] LABS: BILIRUBIN,URINE NEGATIVE (NEGATIVE); GLUCOSE, URINE (UA) NEGATIVE (NEGATIVE); KETONES,URINE (UA) NEGATIVE (NEGATIVE); LEUKOCYTE ESTERASE, URINE NEGATIVE (NEGATIVE); NITRITE,URINE NEGATIVE (NEGATIVE); OCCULT BLOOD,URINE NEGATIVE (NEGATIVE); PH,URINE 7.5 PH (5.0-7.5); PROTEIN,URINE NEGATIVE (NEGATIVE); UROBILINOGEN,URINE 0.2 (NORMAL) E.U./dL (NORMAL)
[2021-04-30 22:12] LABS: CLARITY,URINE CLEAR (CLEAR)
[2021-04-30 22:44] LABS: BACTERIA,URINE Few /HPF (None Seen); RBC,URINE None Seen /HPF (0-5); SQUAMOUS EPITHELIAL CELL,UR FEW Squamous (<= Few); WBC,URINE 0-3 /HPF (0-5)
[2021-05-03 10:46] LABS: HIV AG/AB 4TH GEN NON-REACTIVE (NON-REACTIVE)
[2021-05-03 16:16] LABS: HEPATITIS B SURFACE ANTIGEN NON-REACTIVE (NON-REACTIVE); HEPATITIS C ANTIBODY NON-REACTIVE (NON-REACTIVE)
== END 2021-04-30 15:51 | disposition home or self-care (01) ==
LOC: LAB.S 15:50
PROVIDERS: ATTEND Obstetrics & Gynecology
DX: Z36.89 Encounter for other specified antenatal screening (principal); Z32.01 Encounter for pregnancy test, result positive; Z98.84 Bariatric surgery status
CPT/HCPCS: 36415; 81001; 82306; 82330; 82607; 82728; 83540; 84466; 84702; 85025; 86592; 86762; 86787; 86803; 86850; 86900; 86901; 87086; 87340; 87389

== ENCOUNTER 2021-05-08 13:56 | Outpatient (CLI) | payer MEDICAID ==
[2021-05-08] MEDS ORDERED: FERRIC GLUCONATE 125 MG in SODIUM CHLORIDE 0.9% 100ML 100 ML IV ONE (14:11)
[2021-05-08 14:49] VITALS: BP 111/58
== END 2021-05-08 16:00 | disposition home or self-care (01) ==
LOC: WFO 13:56 → FBP 13:59 → WFO 16:00
PROVIDERS: ATTEND Obstetrics & Gynecology
DX: E61.1 Iron deficiency (principal); D64.9 Anemia, unspecified; Z32.01 Encounter for pregnancy test, result positive; Z98.84 Bariatric surgery status
CPT/HCPCS: 96365; J2916; 99212

== ENCOUNTER 2021-05-14 20:25 | Outpatient (CLI) | payer MEDICAID ==
--- NOTE | 2021-05-15 01:07 | Ultrasound Report ---
PROCEDURE: OB First Trimester w/TV INDICATIONS: POSITIVE TEST OUTSIDE/PRIOR DATING DATA: Last menstrual period (LMP): 03/21/2021. LMP-based estimated date of delivery (TAHIR): 12/26/2021. First dating scan (date and location): 05/14/2021. Estimated date of delivery (TAHIR) from first dating scan: 01/01/2022. The below data below was generated using the ultrasound TAHIR of 01/01/2022 TECHNIQUE: Real-time scanning was performed of the fetus and maternal pelvic organs, with image documentation. Endovaginal scanning was also performed to better visualize the fetus and maternal ovaries. COMPARISON: FINDINGS: Very early intrauterine with crown-rump length and heart. Embryo: [place]-rump length measuring 0.83 cm, 6 weeks 6 days. Yolk sac present. Heart rate: 137 bpm Measurement variability in dating: +/- 4 weeks by LMP, +/- 7 days by mean sac diameter (use before 6 weeks gestation if crown-rump length not able to be measured), +/- 5 days by crown-rump length (6-12 weeks gestation). Maternal organs: Ovaries : Right corpus luteal cyst.. IMPRESSION: Very early intrauterine with crown-rump length and heart beat measuring 6 weeks 6 days. Reviewed by: Jean Mcgregor MD on 05/15/2021 1:06 AM PST Approved by: Jean Mcgregor MD on 05/15/2021 1:06 AM PST Station ID: [id number]
== END 2021-05-14 20:26 | disposition home or self-care (01) ==
LOC: DI 20:25
PROVIDERS: ATTEND Obstetrics & Gynecology
DX: Z32.01 Encounter for pregnancy test, result positive (principal)

== ENCOUNTER 2021-05-15 13:47 | Outpatient (CLI) | payer MEDICAID ==
[2021-05-15] MEDS ORDERED: SODIUM CHLORIDE FLUSH 0.9% 10 ML SYRINGE IVP PRN (14:02)
[2021-05-15 14:06] VITALS: BP 109/64
[2021-05-15] MEDS ORDERED: FERRIC GLUCONATE 125 MG in SODIUM CHLORIDE 0.9% 100ML 100 ML IV ONE (15:00)
--- NOTE | 2021-05-18 16:45 | PROVIDER PROGRESS NOTE ---
Subjective - Prog Note Date Prog Note Date: 05/15/21 Prog Note Time: 15:00 - Subjective Subjective: Patient is a 35 yo with a first trimester and hx of bariatric surgery with chronic anemia. Iron deficient 2/2 poor absorption s/p RNY bypass surgery Patient was given an ferric gluconate 125 mg IV x1 She was not seen by provider as she was present for administration of IV meds only. Objective - Vital Signs/Intake & Output Reviewed Vital Signs: Yes Vital Signs: 97.8 77 109/64 18 100 Intake & Output: Intake & Output 05/15/21 05/16/21 05/17/21 05/18/21 23:59 23:59 23:59 23:59 Intake Total 110 Balance 110
== END 2021-05-15 16:06 | disposition home or self-care (01) ==
LOC: WFO 13:47 → FBP 13:49 → WFO 16:06
PROVIDERS: ATTEND Obstetrics & Gynecology
DX: O99.011 Anemia complicating pregnancy, first trimester (principal); O99.841 Bariatric surgery status complicating pregnancy, first trimester; E61.1 Iron deficiency
CPT/HCPCS: 96365; J2916

== ENCOUNTER 2021-08-02 10:15 | Outpatient (CLI) | payer MEDICAID ==
[2021-08-02 10:38] LABS: HCT - HEMATOCRIT 30.2 % (37.0-47.0); HGB - HEMOGLOBIN 8.8 g/dL (12.0-16.0); MEAN CORPUSCULAR HEMOGLOBIN 21.8 pg (27.0-31.0); MEAN CORPUSCULAR HGB CONC 29.1 g/dL (32.0-36.0); MEAN CORPUSCULAR VOLUME 74.9 fL (81.0-99.0); MEAN PLATELET VOLUME 10.5 fL (7.9-10.8); RED BLOOD COUNT 4.03 10^6/uL (4.20-5.40)
[2021-08-02 10:41] LABS: CALCIUM, IONIZED 1.1 mmol/L (1.15-1.33); VBG PH 7.43 (7.31-7.41)
[2021-08-02 11:01] LABS: ALBUMIN 2.9 g/dL (3.2-5.5); ALBUMIN/GLOBULIN RATIO 0.7 (1.0-2.2); BILIRUBIN,TOTAL 0.6 mg/dL (0.2-1.0); CALCIUM 8.9 mg/dL (8.5-10.3); CREATININE 0.6 mg/dL (0.4-1.0); POTASSIUM 3.5 mmol/L (3.5-5.0)
[2021-08-02 11:15] LABS: FERRITIN 2.9 ng/mL (11.0-306.8)
[2021-08-02 11:18] LABS: FOLATE 18.5 ng/mL (5.90 - >24.8)
[2021-08-04 22:12] LABS: AFP MOM 1.04 (.); AFP VALUE 47.2 ng/mL (.); DIA MOM 1.11 (.); DIA VALUE 164.08 pg/mL (.); DSR (BY AGE) 1 IN 137 (.); DSR (SECOND TRIMESTER) 1 IN 1049 (.); GEST. AGE ON COLLECTION DATE 18.3 WEEKS (.); GESTAT. AGE METHOD EDD (.); HCG MOM 1.35 (.); HCG VALUE 37267 mIU/mL (.); INSULIN DEP DIABETES No (.); MATERNAL AGE AT EDD 38.3 yr (.); MULTIPLE GESTATION No (.); OPEN SPINA BIFIDA RISK 1 IN 10000 (.); RACE Caucasian (.); RESULTS Report (.); TEST RESULTS *Screen Negative* (.); TRISOMY 18 RISK Not increased (.); UE3 VALUE 2.06 ng/mL (.); WEIGHT 161 lbs (.)
== END 2021-08-02 10:16 | disposition home or self-care (01) ==
LOC: LAB 10:15
PROVIDERS: ATTEND Obstetrics & Gynecology
DX: O09.90 Supervision of high risk pregnancy, unspecified, unspecified trimester (principal); O09.529 Supervision of elderly multigravida, unspecified trimester; Z98.84 Bariatric surgery status
CPT/HCPCS: 36415; 80053; 81511; 82306; 82330; 82607; 82728; 82746; 83540; 84466; 85027

== ENCOUNTER 2021-08-19 14:21 | Outpatient (CLI) | payer MEDICAID ==
--- NOTE | 2021-08-20 10:01 | Ultrasound Report ---
PROCEDURE: OB Detailed Eval INDICATIONS: SUPERVISION OF OUTSIDE/PRIOR DATING DATA: Last menstrual period (LMP): 03/21/2021. LMP-based estimated date of delivery (TAHIR): 12/26/2021. First dating scan (date and location): 05/14/2021. Estimated date of delivery (TAHIR) from first dating scan: 01/01/2022. The below data below was generated using the ultrasound TAHIR of 01/01/2022 TECHNIQUE: Real-time scanning was performed of the fetus, with image documentation and biometric measurements. Endovaginal scanning: Not performed COMPARISON: None. FINDINGS: General: A single living intrauterine gestation is present. Presentation: Variable Placenta: Placental position is anterior, without previa. Amniotic fluid index: 12.7 cm, normal for gestational age. heart rate: 137 beats per minute. Maternal cervical canal: 5.2 cm long; normal length is 2.5 cm or more. biometrics: Biparietal diameter: 4.8 centimeters Head circumference: 17.6 cm Abdominal circumference: 15.8 cm Femur length: 3.4 cm Estimated gestational age from initial scan: 20 weeks 5 days Composite gestational age from present scan: 20 weeks 4 days Estimated weight and percentile: 370 g, 43rd percentile Measurement variability in biometric dating: +/- 10 days from 12-20 weeks gestation, +/- 2 weeks from 20-30 weeks gestation, +/- 3 weeks at 30 weeks gestation or later. Anatomic survey: Neuro: Ventricles are normal at less than 10 mm. Cisterna magna is normal at 3-11 mm. Cerebellum i s normal in size and morphology. Nuchal skin fold: Normal at less than 6 mm between 14 and 20 weeks gestational age. Face: Nose and lips, facial profile are normal. Spine: No evidence for spina bifida. Heart: 4-chambered heart is present, with normal ventricular outflow tracts. Diaphragm: Diaphragm is intact. Stomach: Left-sided stomach is present. Kidneys: No hydronephrosis. Normal is less than 5 mm in 2nd trimester, less than 7 mm in 3rd trimester. Cord: 3 vessel cord has orthotopic insertion. Bladder: Normal in size. Extremities: All 4 extremities are visualized. IMPRESSION: Single live intrauterine gestation. Normal anatomic survey. Reviewed by: Bo Davidson MD on 08/20/2021 10:00 AM PDT Approved by: Bo Davidson MD on 08/20/2021 10:00 AM PDT Station ID: [id number]
== END 2021-08-19 14:22 | disposition home or self-care (01) ==
LOC: DI 14:21
PROVIDERS: ATTEND Obstetrics & Gynecology
DX: O09.92 Supervision of high risk pregnancy, unspecified, second trimester (principal); Z36.89 Encounter for other specified antenatal screening; Z3A.20 20 weeks gestation of pregnancy

== ENCOUNTER 2021-08-24 15:14 | Outpatient (CLI) | payer MEDICAID ==
[2021-08-24] MEDS ORDERED: FERRIC GLUCONATE 125 MG in SODIUM CHLORIDE 0.9% 100ML 100 ML IV ONE (15:23)
[2021-08-24 15:45] VITALS: BP 119/80
--- NOTE | 2021-08-25 10:38 | Labor Flowsheet ---
Labor Flowsheet Datetime Report Generated by CPN: 08/24/2021 21:05 Datetime: 08/24/2021 15:43 VITAL SIGNS NBP Sys/[place]/Mean (mmHg): 119 : 80 : 87 Pulse: 84
--- NOTE | 2021-08-27 09:17 | PROVIDER PROGRESS NOTE ---
- HPI Chief Complaint: Other Current : Current [facility] 01/01/22 Gestation 21 Weeks and 3 Days 5 Para 4 Vital Signs Temperature 97.7 F 08/24/21 15:38 Heart Rate 84 08/24/21 15:38 Respiratory Rate 16 08/24/21 15:38 Blood Pressure 119/80 08/24/21 15:38 Temperature 97.7 F 08/24/21 15:58 Heart Rate 84 08/24/21 15:58 Respiratory Rate 16 08/24/21 15:58 Blood Pressure 119/80 08/24/21 15:58 O2 Saturation 100 08/24/21 15:58 - Procedures NST Procedure: NST Procedure Start Time 15:41 Stop Time 15:53 Patient States Movement Yes - Plan Plan: Patient is a 35-year-old -0-0-4 presenting today for iron infusion. She has good movement, no leaking, no vaginal bleeding. She denies headache, right upper quadrant pain, changes in vision. complications: Status post gastric bypass surgery Iron deficiency anemia Depression/anxiety Past surgical history Gastric bypass 2003 Family history Mother: Asthma, depression, alcoholism, anxiety Father: Alcoholism Social history Former smoker. No alcohol or drugs. Assessment and plan Physical Constitutional: alert, no acute distress, well hydrated, well developed, well nourished, appropriate dress. Cardiovascular: RRR. Respiratory: no respiratory distress. Abdomen: nondistended, nontender, no guarding. Psych: affect and mood appropriate, normal interaction, good eye contact. Assessment and plan: 35 -0-0-4 at 21 weeks 3 days gestation presenting for iron infusion secondary to iron deficiency anemia 1. Iron deficiency anemia -Iron infusion today. 2. 21 weeks gestation 3. Status post gastric bypass
== END 2021-08-24 17:30 | disposition home or self-care (01) ==
LOC: WFO 15:14 → FBP 15:16 → WFO 17:30
PROVIDERS: ATTEND Obstetrics & Gynecology
DX: O99.012 Anemia complicating pregnancy, second trimester (principal); D50.9 Iron deficiency anemia, unspecified; O09.522 Supervision of elderly multigravida, second trimester; Z3A.21 21 weeks gestation of pregnancy; Z98.84 Bariatric surgery status; Z87.891 Personal history of nicotine dependence
CPT/HCPCS: 96365; J2916; 99212

== ENCOUNTER 2021-09-02 12:04 | Outpatient (CLI) | payer MEDICAID ==
[2021-09-02] MEDS ORDERED: FERRIC GLUCONATE 125 MG in SODIUM CHLORIDE 0.9% 100ML 100 ML IV ONE (12:14)
== END 2021-09-02 12:47 | disposition home or self-care (01) ==
LOC: WFO 12:04 → FBP 12:05 → WFO 12:47
PROVIDERS: ATTEND Obstetrics & Gynecology
DX: O99.012 Anemia complicating pregnancy, second trimester (principal); D50.9 Iron deficiency anemia, unspecified; O09.92 Supervision of high risk pregnancy, unspecified, second trimester
CPT/HCPCS: 96365; J2916

== ENCOUNTER 2021-09-30 14:29 | Outpatient (CLI) | payer MEDICAID ==
[2021-09-30 20:02] LABS: HCT - HEMATOCRIT 27.8 % (37.0-47.0); HGB - HEMOGLOBIN 8.2 g/dL (12.0-16.0); MEAN CORPUSCULAR HEMOGLOBIN 23.4 pg (27.0-31.0); MEAN CORPUSCULAR HGB CONC 29.5 g/dL (32.0-36.0); MEAN CORPUSCULAR VOLUME 79.2 fL (81.0-99.0); MEAN PLATELET VOLUME 11.5 fL (7.9-10.8); RED BLOOD COUNT 3.51 10^6/uL (4.20-5.40); RED CELL DISTRIBUTION WIDTH 20.6 % (12.0-15.0); WHITE BLOOD COUNT 5.1 x10^3/uL (4.8-10.8)
== END 2021-09-30 14:30 | disposition home or self-care (01) ==
LOC: LAB.S 14:29
PROVIDERS: ATTEND Obstetrics & Gynecology
DX: Z36.89 Encounter for other specified antenatal screening (principal)
CPT/HCPCS: 36415; 85027

== ENCOUNTER 2021-11-23 13:45 | Outpatient (CLI) | payer MEDICAID | END 2021-11-23 13:46 | disposition home or self-care (01) | LOC: LAB 13:45 | PROVIDERS: ATTEND Obstetrics & Gynecology | DX: D64.9 Anemia, unspecified (principal); Z98.84 Bariatric surgery status | CPT/HCPCS: 36415; 82306; 82310; 84425 ==

== ENCOUNTER 2021-11-25 15:19 | Outpatient (CLI) | payer MEDICAID ==
[2021-11-25 15:41] LABS: HCT - HEMATOCRIT 29.9 % (37.0-47.0); HGB - HEMOGLOBIN 8.7 g/dL (12.0-16.0); MEAN CORPUSCULAR HEMOGLOBIN 22.8 pg (27.0-31.0); MEAN CORPUSCULAR HGB CONC 29.1 g/dL (32.0-36.0); MEAN CORPUSCULAR VOLUME 78.5 fL (81.0-99.0); MEAN PLATELET VOLUME 10.3 fL (7.9-10.8); RED BLOOD COUNT 3.81 10^6/uL (4.20-5.40); RED CELL DISTRIBUTION WIDTH 17.8 % (12.0-15.0); WHITE BLOOD COUNT 7.1 x10^3/uL (4.8-10.8)
== END 2021-11-25 15:20 | disposition home or self-care (01) ==
LOC: LAB 15:19
PROVIDERS: ATTEND Obstetrics & Gynecology
DX: D64.9 Anemia, unspecified (principal); Z98.84 Bariatric surgery status
CPT/HCPCS: 36415; 82728; 84425; 85027

== ENCOUNTER 2021-12-02 11:37 | Outpatient (CLI) | payer MEDICAID ==
[2021-12-02 11:49] VITALS: BP 114/69
[2021-12-02 12:38] LABS: HCT - HEMATOCRIT 29.9 % (37.0-47.0); HGB - HEMOGLOBIN 8.9 g/dL (12.0-16.0); MEAN CORPUSCULAR HEMOGLOBIN 22.3 pg (27.0-31.0); MEAN CORPUSCULAR HGB CONC 29.8 g/dL (32.0-36.0); MEAN CORPUSCULAR VOLUME 74.9 fL (81.0-99.0); RED BLOOD COUNT 3.99 10^6/uL (4.20-5.40); RED CELL DISTRIBUTION WIDTH 17.6 % (12.0-15.0); WHITE BLOOD COUNT 8.3 x10^3/uL (4.8-10.8)
[2021-12-02] MEDS: LACTATED RINGERS 1,000 ML IV ONE (12:45)
[2021-12-02 12:51] LABS: ALBUMIN 2.5 g/dL (3.2-5.5); ALBUMIN/GLOBULIN RATIO 0.7 (1.0-2.2); BILIRUBIN,TOTAL 0.5 mg/dL (0.2-1.0); CALCIUM 8.3 mg/dL (8.5-10.3); CREATININE 0.6 mg/dL (0.4-1.0); POTASSIUM 3.6 mmol/L (3.5-5.0); TOTAL PROTEIN 6.1 g/dL (6.7-8.2)
[2021-12-02 13:59] LABS: CREATININE,URINE 73.2 mg/dL; PROTEIN/CREATININE RATIO,URINE 0.2 (<=0.2)
[2021-12-02] MEDS: IRON DEXTRAN 1,000 MG in SODIUM CHLORIDE 0.9% 250 ML IV ONE (14:31)
--- NOTE | 2021-12-02 16:13 | PROVIDER PROGRESS NOTE ---
- HPI Chief Complaint: Labor Current : Current EDU 01/01/22 Gestation 35 Weeks and 5 Days 5 Para 4 Vital Signs Temperature 98.1 F 12/02/21 11:46 Heart Rate 73 12/02/21 11:46 Respiratory Rate 18 12/02/21 11:46 Blood Pressure 114/69 12/02/21 11:46 Temperature 98.1 F 12/02/21 11:46 Heart Rate 73 12/02/21 11:46 Respiratory Rate 18 12/02/21 11:46 Blood Pressure 114/69 12/02/21 11:46 O2 Saturation - Procedures OB Procedure Performed: NST Diagnosis/Indication for NST: labor NST Procedure: NST Procedure Start Date 12/02/21 Start Time 11:50 Stop Time 12:45 Vibroacoustic Stimulation Used No Patient States Movement Yes EFM: 130s, moderate variability, positive accelerations, no decelerations [place]: contractions q2-4m, decreased after IVF Category 1 tracing Service Date of procedure: 12/02/21 (Read 12/02) - Plan Plan: 36yo at 35.5w presenting with contractions since 0200 that woke her up and persisted this morning. She delivered her other children at term. No bleeding or leaking fluid. Good movement. complicated by anemia for which she has received iron infusions. Also reports nausea and fatigue. CBC and CMP obtained, she was found to be anemic still. History of gastric bypass surgery. Iron infusion completed today. VSS GEN: NAD CV: RR Resp: Breathing unlabored Abd: soft, nt Ext: nt SVE: closed, 50/-3 and same exam hours later NST reactive 36yo at 35.5w, false labor, anemia of - labor precautions reviewed - 1000mg iron dextran infused, tolerated well - CMP, PCR benign - Discharge to home, follow up as scheduled or earlier prn
== END 2021-12-02 15:45 | disposition home or self-care (01) ==
LOC: WFO 11:37 → FBP 11:39 → WFO 15:45
PROVIDERS: ATTEND Obstetrics & Gynecology
DX: O47.03 False labor before 37 completed weeks of gestation, third trimester (principal); O99.013 Anemia complicating pregnancy, third trimester; Z3A.35 35 weeks gestation of pregnancy; O99.891 Other specified diseases and conditions complicating pregnancy; R53.83 Other fatigue; R11.0 Nausea
CPT/HCPCS: 36415; 59025; 80053; 82570; 84156; 85027; 96361; 96365; 99214; J1750; J7120

== ENCOUNTER 2021-12-16 13:45 | Outpatient (CLI) | payer MEDICAID ==
[2021-12-18 00:01] LABS: CHLAMYDIA TRACHOMATIS DNA NEGATIVE (NEGATIVE); NEISSERIA GONORRHOEAE DNA NEGATIVE (NEGATIVE); TRICHOMONAS VAGINALIS DNA NEGATIVE (NEGATIVE)
== END 2021-12-16 23:59 | disposition home or self-care (01) ==
LOC: LAB.WC 13:45
PROVIDERS: ATTEND Obstetrics & Gynecology
DX: Z36.85 Encounter for antenatal screening for Streptococcus B (principal)
CPT/HCPCS: 87491; 87591; 87661; 87797

== ENCOUNTER 2021-12-21 14:51 | Inpatient (IN) | payer MEDICAID ==
[2021-12-21 15:50] LABS: RUPTURE OF MEMBRANES PLUS POSITIVE (NEGATIVE)
--- NOTE | 2021-12-21 15:51 | HISTORY & PHYSICAL EXAMINATION ---
Admit History - Visit Reason Visit Reason: Contractions (h/o alcohol abuse, soberx4 years) - : 5 Parity: 4 Care: positive: [facility] Risk/History: positive: Other (anemia during , s/p multiple iron transfusions) Complications This : positive: None Smoking Status: Current every day smoker - Mother's Labs Mother's Blood Type: positive: O Mother's RH: positive: Positive GBS: positive: Group B Step Negative (RPR NR, HIV negative) Rubella Status: positive: Immune Meds/Allgy - Home Medications Home Medications: Ambulatory Orders Medication Instructions Recorded Confirmed Cyclobenzaprine [Flexeril] 10 mg PO DAILY 06/28/18 01/22/20 traZODone [Desyrel] 50 mg PO Q6H PRN 06/28/18 01/22/20 Acetaminophen [Tylenol] 650 mg PO Q6H PRN #60 tablet 01/22/20 Ibuprofen [Motrin] 600 mg PO Q6H PRN #30 tab 01/22/20 Omeprazole 40 mg PO DAILY 01/22/20 01/22/20 Sertraline [Zoloft] 25 mg PO DAILY 01/22/20 01/22/20 busPIRone [Buspar] 5 mg PO DAILY 01/22/20 01/22/20 oxyCODONE [Roxicodone] 5 mg PO Q4H PRN #12 tablet 01/22/20 Ferrous Sulfate 325 mg PO QDAC #30 tab 04/22/21 - Allergies Allergies/Adverse Reactions: Allergies Allergy/AdvReac Type Severity Reaction Status Date / Time ibuprofen AdvReac Nausea Verified 04/22/21 17:02 Review of Systems - Constitutional Constitutional: denies: Fatigue - Cardiovascular Cariovascular: denies: Chest pain - Respiratory Respiratory: denies: Cough, SOB at rest - Gastrointestinal Gastrointestinal: denies: Abdominal pain Physical - Abdominal Exam Vital Signs: Temp Pulse Resp BP Pulse Ox O2 Flow Rate 97.7 F 95 100 H 105/74 12/21/21 15:08 12/21/21 15:08 12/21/21 15:08 12/21/21 15:08 Contraction Frequency (min/apart): every 4 minutes Contraction Intensity: positive: Moderate Uterine Resting Tone: positive: Soft - Monitoring Strip Review: positive: Category I - Presentation Presentation: positive: Vertex - Vaginal Exam Membranes: positive: Membranes intact Dilation (in cm): 5 Cervical Position: positive: Anterior Plan for Labor - Plan For Labor I expect patient to be DC'd or transferred within 96 hours.: No Plan for Labor: at 38+3 1. labor: 5 cm cervical dilation, bulging membranes, history of fast labor -discussed admission and AROM when possible 2. pain management -patient would like nitrous 3. history of gastric bypass 4. Rh+/RI 5. anemia -s/p iron transfusion
[2021-12-21] MEDS ORDERED: miSOPROStoL 200 MCG TABLET PR PRN (15:54)
[2021-12-21] MEDS ORDERED: TRANEXAMIC ACID IN NACL 1,000 MG/100 ML BAG IV PRN (15:54)
[2021-12-21] MEDS ORDERED: CARBOPROST TROMETHAMINE 250 MCG/ML AMP IM PRN (15:54)
[2021-12-21] MEDS ORDERED: hydrALAZINE INJ 20 MG/ML VIAL IVP PRN ×2 (15:54)
[2021-12-21] MEDS ORDERED: LABETALOL 20 MG/4 ML SYRINGE IVP PRN ×3 (15:54)
[2021-12-21] MEDS ORDERED: miSOPROStoL 200 MCG TABLET BC PRN (15:54)
[2021-12-21] MEDS ORDERED: OXYTOCIN/SODIUM CHLORIDE 500 ML IV PRN (15:54)
[2021-12-21] MEDS ORDERED: METHYLERGONOVINE 0.2 MG/ML VIAL IM PRN (15:54)
[2021-12-21] MEDS ORDERED: lidocaine 1% 20 ML MDV ID PRN (15:54)
[2021-12-21] MEDS ORDERED: fentaNYL 100 MCG/2 ML VIAL IVP PRN (15:54)
[2021-12-21] MEDS ORDERED: OXYTOCIN 10 UNIT/ML VIAL IM PRN (15:54)
[2021-12-21] MEDS ORDERED: NIFEdipine 10 MG CAPSULE PO PRN (15:54)
[2021-12-21] MEDS ORDERED: SODIUM CHLORIDE FLUSH 0.9% 10 ML SYRINGE IVP PRN (15:54)
[2021-12-21] MEDS ORDERED: OXYTOCIN/SODIUM CHLORIDE 500 ML IV SCH (16:00)
[2021-12-21] MEDS ORDERED: LACTATED RINGERS 1,000 ML IV SCH ×2 (16:00→18:00)
[2021-12-21 16:35] LABS: BASOPHILS % (AUTO) 0.3 %; EOSINOPHILS % (AUTO) 0.1 %; HCT - HEMATOCRIT 36.1 % (37.0-47.0); LYMPHOCYTES # (AUTO) 0.8 10^3/uL (1.5-3.5); LYMPHOCYTES % (AUTO) 11.6 %; MEAN CORPUSCULAR HEMOGLOBIN 25.5 pg (27.0-31.0); MEAN CORPUSCULAR HGB CONC 30.5 g/dL (32.0-36.0); MEAN CORPUSCULAR VOLUME 83.6 fL (81.0-99.0); MEAN PLATELET VOLUME 10.9 fL (7.9-10.8); MONOCYTES # (AUTO) 0.6 10^3/uL (0.0-1.0); NEUTROPHILS # (AUTO) 5.6 10^3/uL (1.5-6.6); NEUTROPHILS % (AUTO) 79.6 %; PLT - PLATELET COUNT 211 10^3/uL (130-450); RED BLOOD COUNT 4.32 10^6/uL (4.20-5.40); RED CELL DISTRIBUTION WIDTH 27.9 % (12.0-15.0)
[2021-12-21 17:13] LABS: PLATELET ESTIMATE, MANUAL NORMAL (130-450,000) (NORMAL); PLATELET MORPHOLOGY NORMAL APPEARANCE (NORMAL); SLIDE REVIEW? Indicated; WBC MORPHOLOGY (MULTIPLE) NORMAL APPEARANCE (NORMAL)
--- NOTE | 2021-12-21 17:36 | DELIVERY NOTE ---
Delivery Note - Labor Labor: positive: Spontaneous - Infant Delivery Method Delivery Method: positive: Spontaneous vaginal delivery - Presentation Presentation: positive: Vertex - Nuchal Cord Nuchal Cord: positive: Present - Amniotic Fluid Description Amniotic Fluid Description: positive: Clear - Episiotomy Type Episiotomy Type: positive: None - Laceration Laceration: positive: None - Delivery Outcome Delivery Outcome: positive: Livebirth - [place]: positive: Placed in direct skin contact with mother [place] sex: positive: Female - Cord Cord: positive: 3 vessels - Placenta Placenta: positive: Intact - Estimated Blood Loss Estimated Blood Loss (in cc): 300 - Post Delivery Events Post Delivery Events: positive: No post delivery events
[2021-12-21] MEDS ORDERED: ACETAMINOPHEN 500 MG TABLET PO PRN (17:54)
[2021-12-21] MEDS ORDERED: FERRIC GLUCONATE 125 MG in SODIUM CHLORIDE 0.9% 100ML 100 ML IV ONE ×2 (18:05→18:30)
[2021-12-21] MEDS: ACETAMINOPHEN 500 MG TABLET PO PRN (18:22)
[2021-12-21] MEDS ORDERED: hydrOXYzine PAMOATE 25 MG CAPSULE PO PRN (19:39)
[2021-12-21] MEDS: SODIUM CHLORIDE FLUSH 0.9% 10 ML SYRINGE IVP SCH ×2 (20:49→22:34)
[2021-12-21] MEDS: DOCUSATE SODIUM 100 MG CAPSULE PO SCH (21:06)
[2021-12-21] MEDS: HYDROcod/ACETAM 5/325 MG TABLET PO PRN (22:25)
[2021-12-22] MEDS: ACETAMINOPHEN 500 MG TABLET PO PRN (02:47)
[2021-12-22] MEDS: HYDROcod/ACETAM 5/325 MG TABLET PO PRN ×4 (03:10→18:31)
[2021-12-22] MEDS ORDERED: FERROUS SULFATE 325 MG TABLET PO SCH (08:00)
[2021-12-22] MEDS ORDERED: busPIRone 5 MG TABLET PO SCH (09:00)
[2021-12-22] MEDS ORDERED: SERTRALINE 25 MG TABLET PO SCH (09:00)
[2021-12-22] MEDS: DOCUSATE SODIUM 100 MG CAPSULE PO SCH (09:01)
--- NOTE | 2021-12-22 09:46 | DISCHARGE SUMMARY ---
"Discharge Summary Admit Date: 12/21/21 Discharge Date: 12/22/21 Discharging Provider: Dr. Stock Primary Care Provider: Dr. Cazares Code Status: Attempt Resuscitation Condition at Discharge: Good Discharge Disposition: 01 Home, Self Care - DIAGNOSES Admission Diagnoses: labor, rupture of membranes - HPI History of Present Illness: Patient is a 36 yo who presented at 38+ weeks in labor with spontaneous rupture of membranes. - CONSULTS | PROCEDURES Procedures: Normal spontaneous vaginal delivery - HOSPITAL COURSE Hospital Course: Patient presented with spontaneous rupture of membranes and 5 cm cervical dilation. She rapidly progressed to full cervical dilation and had a normal spontaneous vaginal delivery and an uncomplicated course. Patient received IV iron transfusion. She was discharged to home on day#1. Patient was counseled on signs/symptoms of depression. - ALLERGIES Allergies/Adverse Reactions: Allergies Allergy/AdvReac Type Severity Reaction Status Date / Time ibuprofen AdvReac Nausea Verified 12/21/21 17:51 - MEDICATIONS Home Medications: Ambulatory Orders Medication Instructions Recorded Confirmed Cyclobenzaprine [Flexeril] 10 mg PO DAILY 06/28/18 01/22/20 traZODone [Desyrel] 50 mg PO Q6H PRN 06/28/18 01/22/20 Acetaminophen [Tylenol] 650 mg PO Q6H PRN #60 tablet 01/22/20 Ibuprofen [Motrin] 600 mg PO Q6H PRN #30 tab 01/22/20 Omeprazole 40 mg PO DAILY 01/22/20 01/22/20 Sertraline [Zoloft] 25 mg PO DAILY 01/22/20 01/22/20 busPIRone [Buspar] 5 mg PO DAILY 01/22/20 01/22/20 oxyCODONE [Roxicodone] 5 mg PO Q4H PRN #12 tablet 01/22/20 Ferrous Sulfate 325 mg PO QDAC #30 tab 04/22/21 - PHYSICAL EXAM AT DISCHARGE General Appearance: positive: No acute distress Eyes Bilateral: positive: Normal inspection Respiratory: positive: Breath sounds nml. negative: Wheezes, Rales, Rhonchi Cardiovascular: positive: Regular rate & rhythm. negative: No murmur Abdomen: positive: Other (abdomen; appropriately tender, firm fundus below the umbilicus) Skin: positive: Color nml Extremities: positive: Non-tender Neurologic/Psychiatric: positive: Oriented x3 - LABS Result Diagrams: 12/22/21 06:12 - FOLLOW UP Follow Up: routine follow-up. Patient counseled on signs/symptoms of depression and counseled to call or come in for any concerns. She reports her mood is good today and no concerns. All questions answered."
--- NOTE | 2021-12-22 09:51 | PROVIDER PROGRESS NOTE ---
Subjective - Prog Note Date Prog Note Date: 12/22/21 - Subjective Subjective: Patient is doing well this morning. Lochia=menses. Denies chest pain and shortness of breath. Objective - Vital Signs/Intake & Output Vital Signs: Vital Signs x48h Temp Pulse Resp BP Pulse Ox 12/22/21 07:50 97.9 F 76 16 102/65 98 12/22/21 04:00 97.5 F L 63 16 86/52 L 100 Intake & Output: Intake & Output 12/19/21 12/20/21 12/21/21 12/22/21 23:59 23:59 23:59 23:59 Intake Total 110 600 Output Total 175 Balance -65 600 - Objective General Appearance: positive: No acute distress Eyes Bilateral: positive: Normal inspection Respiratory: positive: No respiratory distress, Breath sounds nml. negative: Wheezes, Rales, Rhonchi Cardiovascular: positive: Regular rate & rhythm Abdomen: positive: Other (appropriately tender, firm fundus below the umbilicus) Skin: positive: Color nml Extremities: positive: Non-tender Neurologic/Psychiatric: positive: Oriented x3 - Lab Results Fish Bones: 12/22/21 06:12 Other Labs: Lab Results x24hrs 12/22/21 12/21/21 12/21/21 Range/Units 06:12 16:20 16:20 WBC 7.0 (4.8-10.8) x10^3/uL RBC 4.32 (4.20-5.40) 10^6/uL Hgb 9.5 L 11.0 L (12.0-16.0) g/dL Hct 36.1 L (37.0-47.0) % MCV 83.6 (81.0-99.0) fL MCH 25.5 L (27.0-31.0) pg MCHC 30.5 L (32.0-36.0) g/dL RDW 27.9 H (12.0-15.0) % Plt Count 211 (130-450) 10^3/uL MPV 10.9 H (7.9-10.8) fL Neut # (Auto) 5.6 (1.5-6.6) 10^3/uL Lymph # (Auto) 0.8 L (1.5-3.5) 10^3/uL Ida # (Auto) 0.6 (0.0-1.0) 10^3/uL Eos # (Auto) 0.0 (0.0-0.7) 10^3/uL Baso # (Auto) 0.0 (0.0-0.1) 10^3/uL Absolute Nucleated RBC 0.00 x10^3/uL Nucleated RBC % 0.0 /100WBC Manual Slide Review Indicated WBC Morphology NORMAL APPEARANCE (NORMAL) Platelet Estimate NORMAL (130-450,000) (NORMAL) Platelet Morphology NORMAL APPEARANCE (NORMAL) RBC Morph Micro Appear 1+ POLYCHROMASIA (NORMAL) Membranes Rupture (NEGATIVE) Blood Type O POSITIVE Antibody Screen NEGATIVE 12/21/21 Range/Units 15:20 WBC (4.8-10.8) x10^3/uL RBC (4.20-5.40) 10^6/uL Hgb (12.0-16.0) g/dL Hct (37.0-47.0) % MCV (81.0-99.0) fL MCH (27.0-31.0) pg MCHC (32.0-36.0) g/dL RDW (12.0-15.0) % Plt Count (130-450) 10^3/uL MPV (7.9-10.8) fL Neut # (Auto) (1.5-6.6) 10^3/uL Lymph # (Auto) (1.5-3.5) 10^3/uL Ida # (Auto) (0.0-1.0) 10^3/uL Eos # (Auto) (0.0-0.7) 10^3/uL Baso # (Auto) (0.0-0.1) 10^3/uL Absolute Nucleated RBC x10^3/uL Nucleated RBC % /100WBC Manual Slide Review WBC Morphology (NORMAL) Platelet Estimate (NORMAL) Platelet Morphology (NORMAL) RBC Morph Micro Appear (NORMAL) Membranes Rupture POSITIVE A (NEGATIVE) Blood Type Antibody Screen ABX Reporting Has patient been on IV antibiotics over the past 48 hours?: No Assessment/Plan - Problem List (1) Impression: PPD#1 -routine care -discussed signs/symptoms of depression -Rh+/RI -discharge to home today.
[2021-12-22 17:50] VITALS: BP 107/61
--- NOTE | 2021-12-22 19:19 | Labor Flowsheet ---
Labor Flowsheet Datetime Report Generated by CPN: 12/22/2021 19:19 Datetime: 12/22/2021 17:47 VITAL SIGNS NBP Sys/[place]/Mean (mmHg): 107 : 61 : 72 Pulse: 74 Datetime: 12/22/2021 00:13 SpO2 (%): 100 Datetime: 12/21/2021 18:47 Respirations: 18 Datetime: 12/21/2021 17:23 Temperature (C): 37.1 Datetime: 12/21/2021 17:21 Stage of : Recovery Datetime: 12/21/2021 17:02 Stage 2 Comments: baby delivered by provider precipitously Datetime: 12/21/2021 16:56 STAGE 2 Pushing: Involuntary Pushing Pushing Position: Pushing with Contractions; Pushing Lithotomy Pushing Progress: Descent with Pushing COMMUNICATION Communication: responsible nurse candice-rotundo, not LJ Spear Datetime: 12/21/2021 16:45 UTERINE ACTIVITY Monitor Mode: External Frequency (min): 2-3 Quality: Strong Duration (sec): 60-90 Pattern: Normal: <= 5 Contractions in 10 Minutes Resting Tone (Palpate): Relaxed ASSESSMENT A Monitor Mode: Telemetry FHR Baseline Rate : 130 Variability: Moderate 6-25 bpm Accelerations: 15X15 Decelerations: None Category: Category I Datetime: 12/21/2021 16:44 VAGINAL EXAM Dilatation (cm): 7.0 Station: 0 Exam by: Dr. Stock Membranes Ruptured Date/Time: 12/21/2021 16:44 Membranes Rupture Method: Artificial Amniotic Fluid Color: Clear Vaginal Bleeding: None Cervix, Consistency: Soft Cervix, Position: Anterior Datetime: 12/21/2021 16:30 Contraction Comments: getting more uncomfortable with contractions
--- NOTE | 2022-01-13 11:48 | PROCEDURE REPORT ---
- HPI Diagnosis/Indication for NST: Other (labor) Current EDU 01/01/22 Gestation 38 Weeks and 3 Days 5 Para 4 Vital Signs Temperature 97.7 F 12/21/21 15:08 Heart Rate 95 12/21/21 15:08 Respiratory Rate 100 H 12/21/21 15:08 Blood Pressure 105/74 12/21/21 15:08 Temperature 97.9 F 12/22/21 17:49 Heart Rate 71 12/22/21 17:49 Respiratory Rate 18 12/22/21 17:49 Blood Pressure 107/61 12/22/21 17:49 O2 Saturation 96 12/22/21 17:49 If not protocol: Oxygen Flow, liters/minute - NST Procedure NST Procedure Start Date 12/21/21 Start Time 15:05 Stop Time 15:25 Vibroacoustic Stimulation Used No Patient States Movement Yes NST reactive, regular contractions every 4 minutes - Results and Plan Findings/Impression: reactive NST Plan: Reactive NST Admit to labor and delivery for management of labor
== END 2021-12-22 19:05 | disposition home or self-care (01) | DRG 807 ==
LOC: WFO 14:51 → FBP 14:53 → WFO 15:45 → FBP 15:54
PROVIDERS: ADMIT Obstetrics & Gynecology Obstetrics; ATTEND Obstetrics & Gynecology Obstetrics
PROC: 10E0XZZ Delivery of Products of Conception, External Approach (ICD-10-PCS; principal; 2021-12-21)
DX: O69.81X0 Labor and delivery complicated by cord around neck, without compression, not applicable or unspecified (principal); Z37.0 Single live birth; O99.334 Smoking (tobacco) complicating childbirth; O99.02 Anemia complicating childbirth; D50.9 Iron deficiency anemia, unspecified; Z3A.38 38 weeks gestation of pregnancy
CPT/HCPCS: 36415; 59025; 84112; 85018; 85025; 86850; 86900; 86901; 99215; A9270; J2916; J7120

== ENCOUNTER 2022-03-04 18:31 | Outpatient (CLI) | payer MEDICAID ==
--- NOTE | 2022-03-04 21:32 | XRAY Report ---
PROCEDURE: Foot 3 View LT INDICATIONS: LEFT FOOT PAIN TECHNIQUE: 3 views of the foot were acquired. COMPARISON: None. FINDINGS: Bones: There is a small focal cortical step-off at the base of the first proximal phalanx along the f irst metatarsophalangeal joint suspicious for a minimally displaced fracture. No dislocation. No susp icious bony lesions. Soft tissues: No tibiotalar joint effusion. Achilles tendon appears normal. IMPRESSION: 1. Suspected minimally displaced fracture of the base of the first proximal phalanx at the first MTP joint. Reviewed by: Baldo Castellano MD on 03/04/2022 9:30 PM RUST Approved by: Baldo Castellano MD on 03/04/2022 9:30 PM RUST Station ID: [id number]
== END 2022-03-04 18:32 | disposition home or self-care (01) ==
LOC: DI.S 18:31
PROVIDERS: ATTEND Physician Assistant
DX: M79.672 Pain in left foot (principal)

== ENCOUNTER 2023-04-28 09:05 | Outpatient (CLI) | payer MEDICAID ==
[2023-04-28 15:20] LABS: ABSOLUTE RETICS # AUTO 0.042 10^6/uL (0.020-0.110); BASOPHILS % (AUTO) 0.5 %; EOSINOPHILS # (AUTO) 0.1 10^3/uL (0.0-0.7); EOSINOPHILS % (AUTO) 1.8 %; HCT - HEMATOCRIT 39.8 % (37.0-47.0); HGB - HEMOGLOBIN 12.5 g/dL (12.0-16.0); LYMPHOCYTES % (AUTO) 25.7 %; MEAN CORPUSCULAR HGB CONC 31.4 g/dL (32.0-36.0); MEAN CORPUSCULAR VOLUME 89.2 fL (81.0-99.0); MONOCYTES # (AUTO) 0.3 10^3/uL (0.0-1.0); MONOCYTES % (AUTO) 8.9 %; NEUTROPHILS # (AUTO) 2.4 10^3/uL (1.5-6.6); NEUTROPHILS % (AUTO) 62.8 %; PLT - PLATELET COUNT 158 10^3/uL (130-450); RED BLOOD COUNT 4.46 10^6/uL (4.20-5.40); RED CELL DISTRIBUTION WIDTH 13.8 % (12.0-15.0); RETICULOCYTE COUNT % (AUTO) 0.95 % (0.5-2.3); WHITE BLOOD COUNT 3.8 x10^3/uL (4.8-10.8)
[2023-04-28 16:16] LABS: FERRITIN 3.6 ng/mL (11.0-306.8)
== END 2023-04-28 09:06 | disposition home or self-care (01) ==
LOC: LAB.S 09:05
PROVIDERS: ATTEND Registered Nurse
DX: D64.9 Anemia, unspecified (principal)
CPT/HCPCS: 36415; 82607; 82728; 82746; 83540; 84466; 85025; 85045

== ENCOUNTER 2023-05-26 12:04 | Outpatient (CLI) | payer MEDICAID ==
--- NOTE | 2023-05-26 13:26 | XRAY Report ---
PROCEDURE: Chest 2V INDICATIONS: ABNORMAL PROMINENCE OF RIB TECHNIQUE: 2 views of the chest were acquired. COMPARISON: None. FINDINGS: Surgical changes and devices: None. Lungs and pleura: No pleural effusions or pneumothorax. Lungs are clear. Mediastinum: Mediastinal contours appear normal. Heart size is normal. Bones and chest wall: No suspicious bony lesions. Overlying soft tissues appear unremarkable. Rib s are symmetric. IMPRESSION: No acute cardiopulmonary process. No acute bony abnormality. Reviewed by: Jamar Dodson MD on 05/26/2023 1:25 PM PST Approved by: Jamar Dodson MD on 05/26/2023 1:25 PM PST Station ID: [id number]
== END 2023-05-26 12:05 | disposition home or self-care (01) ==
LOC: DI.S 12:04
PROVIDERS: ATTEND Registered Nurse
DX: M95.4 Acquired deformity of chest and rib (principal)

== ENCOUNTER 2023-07-27 11:22 | Outpatient (CLI) | payer MEDICAID ==
[2023-07-27 14:45] LABS: BASOPHILS % (AUTO) 0.7 %; HCT - HEMATOCRIT 41.6 % (37.0-47.0); HGB - HEMOGLOBIN 13.7 g/dL (12.0-16.0); LYMPHOCYTES # (AUTO) 1.1 10^3/uL (1.5-3.5); MEAN CORPUSCULAR HEMOGLOBIN 29.8 pg (27.0-31.0); MEAN CORPUSCULAR HGB CONC 32.9 g/dL (32.0-36.0); MEAN CORPUSCULAR VOLUME 90.6 fL (81.0-99.0); MEAN PLATELET VOLUME 10.5 fL (7.9-10.8); MONOCYTES # (AUTO) 0.3 10^3/uL (0.0-1.0); MONOCYTES % (AUTO) 7.2 %; NEUTROPHILS # (AUTO) 2.7 10^3/uL (1.5-6.6); NEUTROPHILS % (AUTO) 64.9 %; PLT - PLATELET COUNT 149 10^3/uL (130-450); RED BLOOD COUNT 4.59 10^6/uL (4.20-5.40); RED CELL DISTRIBUTION WIDTH 14.7 % (12.0-15.0); WHITE BLOOD COUNT 4.2 x10^3/uL (4.8-10.8)
[2023-07-27 15:31] LABS: ALBUMIN 4.2 g/dL (3.2-5.5); ALBUMIN/GLOBULIN RATIO 1.8 (1.0-2.2); BILIRUBIN,TOTAL 0.5 mg/dL (0.2-1.0); CALCIUM 9.6 mg/dL (8.5-10.3); CREATININE 0.7 mg/dL (0.6-1.3); POTASSIUM 3.9 mmol/L (3.5-4.5); TOTAL PROTEIN 6.6 g/dL (6.4-8.9)
[2023-07-27 15:37] LABS: THYROID STIMULATING HORMONE 3.29 uIU/mL (0.34-5.60)
[2023-07-27 15:40] LABS: FERRITIN 56.4 ng/mL (11.0-306.8)
== END 2023-07-27 11:23 | disposition home or self-care (01) ==
LOC: LAB.S 11:22
PROVIDERS: ATTEND Registered Nurse
DX: D50.9 Iron deficiency anemia, unspecified (principal); Z13.228 Encounter for screening for other metabolic disorders; Z13.29 Encounter for screening for other suspected endocrine disorder
CPT/HCPCS: 36415; 80050; 82728; 83540; 84466